=== PATIENT | male | born 1950 | race Caucasian/White ===

== ENCOUNTER → 2019-05-09 07:48 | Outpatient (CLI) | payer MEDICARE, OTHER, SELFPAY ==
[2019-05-09 09:40] LABS: Alanine Aminotransferase 38 IU/L (21-72); Albumin 4.2 g/dL (3.5-5.0); Albumin Globulin Ratio 1.7 (1.0-2.8); Alkaline Phosphatase 59 U/L (38-126); Aspartate Aminotransferase 40 IU/L (17-59); BUN Creatinine Ratio 24.4 (6-22); Bilirubin Total 0.9 mg/dL (0.2-1.3); Blood Urea Nitrogen 22 mg/dL (9-20); Calcium 9.5 mg/dL (8.4-10.2); Carbon Dioxide 28 mmol/L (22-32); Chloride 106 mmol/L (98-107); Cholesterol 150 mg/dL (140-199); Estimated Glomerular Filt Rate > 60.0 mL/min (>60); Globulin 2.5 g/dL (1.7-4.1); Glucose 102 mg/dL (80-110); HDL Cholesterol 75 mg/dL (40-60); HEMOLYSIS < 15 (0-50); LDL Cholesterol Calculated 63 mg/dL (<100); Potassium 4.2 mmol/L (3.4-5.1); Sodium 143 mmol/L (137-145); Total Protein 6.7 g/dL (6.3-8.2); Triglycerides 62 mg/dL (35-150)
[2019-05-09 10:09] LABS: Prostate Specific Antigen Scrn 1.47 ng/mL (0.1-4.0)
[2019-05-09 10:57] LABS: Hep C Virus Ab w/Reflex Quant NEGATIVE s/c (NEGATIVE)
== END ==
PROVIDERS: PCP Internal Medicine; Visit Provider Internal Medicine
DX: M15.0 Primary generalized (osteo)arthritis (principal); I10 Essential (primary) hypertension; Z12.5 Encounter for screening for malignant neoplasm of prostate
CPT/HCPCS: 36415; 80053; 80061; 86803; G0103

== ENCOUNTER → 2019-11-22 15:20 | Outpatient (CLI) | payer MEDICARE, OTHER, SELFPAY ==
[2019-11-22 16:42] LABS: BUN Creatinine Ratio 31.1 (6-22); Blood Urea Nitrogen 28 mg/dL (9-20); Calcium 9.7 mg/dL (8.4-10.2); Carbon Dioxide 27 mmol/L (22-32); Chloride 103 mmol/L (98-107); Estimated Glomerular Filt Rate > 60.0 mL/min (>60); Glucose 94 mg/dL (80-110); HEMOLYSIS < 15 (0-50); Potassium 4.4 mmol/L (3.4-5.1); Sodium 140 mmol/L (137-145)
== END ==
PROVIDERS: PCP Internal Medicine; Visit Provider Internal Medicine
DX: I10 Essential (primary) hypertension (principal)
CPT/HCPCS: 36415; 80048

== ENCOUNTER → 2019-12-28 10:09 | Outpatient (CLI) | payer MEDICARE, OTHER, SELFPAY ==
[2019-12-28 10:39] LABS: Add Manual Diff / Slide Review NO; Basophils Absolute Auto 0 /uL (0-100); Basophils Percent Auto 0.9 % (0-2); Eosinophils Absolute Auto 100 /uL (0-450); Eosinophils Percent Auto 2.1 % (2-4); Hematocrit 41.1 % (41-53); Hemoglobin 14.5 g/dL (13.5-17.5); Lymphocytes Absolute Auto 1900 /uL (1100-4500); Lymphocytes Percent Auto 33.7 % (25-40); Mean Corpuscular HGB Conc 35.3 % (30-36); Mean Corpuscular Volume 90.8 fL (80-100); Monocytes Absolute Auto 500 /uL (0-900); Monocytes Percent Auto 8.5 % (3-14); Neutrophils Absolute Auto 3100 /uL (1500-7000); Neutrophils Percent Auto 54.8 % (50-75); Platelet Count 191 X10^3/uL (150-400); Red Blood Cell Count 4.53 X10^6/uL (4.5-5.9); Red Cell Distribution Width 13.6 % (11.6-14.8); White Blood Cell Count 5.6 X10^3/uL (4.5-11.0)
[2019-12-28 11:06] LABS: Blood Urea Nitrogen 18 mg/dL (9-20); Calcium 9.7 mg/dL (8.4-10.2); Carbon Dioxide 28 mmol/L (22-32); Chloride 106 mmol/L (98-107); Estimated Glomerular Filt Rate > 60.0 mL/min (>60); Glucose 102 mg/dL (80-110); HEMOLYSIS < 15 (0-50); Potassium 4.5 mmol/L (3.4-5.1); Sodium 142 mmol/L (137-145)
== END ==
PROVIDERS: PCP Internal Medicine; Referring Provider Internal Medicine; Visit Provider Internal Medicine
DX: I10 Essential (primary) hypertension (principal); E78.00 Pure hypercholesterolemia, unspecified; M15.0 Primary generalized (osteo)arthritis
CPT/HCPCS: 36415; 80048; 85025

== ENCOUNTER → 2020-04-03 16:05 | Outpatient (CLI) | payer MEDICARE, OTHER, SELFPAY ==
--- NOTE | 2020-04-03 16:11 | DI.RAD.S_ITS ---
PROCEDURE: XR HAND RT MIN 3V INDICATIONS: RT HAND PAIN TECHNIQUE: 3 views of the hand(s) acquired. COMPARISON: None. FINDINGS: Bones: No fractures or dislocations. Carpal bones are normally aligned. No suspicious bony lesions. Soft tissues: No suspicious soft tissue calcifications. IMPRESSION: Mild arthritic changes at the interphalangeal joints, expected for age, no trauma or erosive arthritis is found. Dictated by: Miguel Aquino M.D. on 04/03/2020 at 17:01 Approved by: Miguel Aquino M.D. on 04/03/2020 at 17:02
== END ==
PROVIDERS: PCP Internal Medicine; Referring Provider Internal Medicine; Visit Provider Internal Medicine
DX: M79.641 Pain in right hand (principal)
CPT/HCPCS: 73130

== ENCOUNTER 2020-07-02 16:47 | Emergency (ER) | payer MEDICARE, OTHER, SELFPAY ==
[2020-07-02 16:53] VITALS: BP 195/88; PULSE 69; RESP 18; TEMP 36.4; O2SAT 99
--- NOTE | 2020-07-02 17:09 | DI.RAD.S_ITS ---
PROCEDURE: XR FINGER LT MIN 2V INDICATIONS: band saw laceration to tip of litte finger involving nail TECHNIQUE: AP hand, 2 views of the 5th finger(s) acquired. COMPARISON: None. FINDINGS: Bones: No fractures or dislocations. No suspicious bony lesions. Soft tissues: No suspicious soft tissue calcifications. Distal 5th digit soft tissue laceration. IMPRESSION: Soft tissue laceration. No visualized acute fracture or dislocation. However, if clinical concern and/or pain persist, short interval imaging followup in 7-10 days is recommended, as occult injury cannot be definitively excluded. Dictated by: Nicolette Bethea M.D. on 07/02/2020 at 17:27 Approved by: Nicolette Bethea M.D. on 07/02/2020 at 17:33
[2020-07-02] MEDS: TET,DIPH,PERTUSS(ACELL),VAC/PF 0.5 ML SYRINGE IM (17:29)
--- NOTE | 2020-07-02 18:02 | ED.UPPEXIN ---
HPI - Extremity Injury (Upper) <AMMY Barrow - Last Filed: 07/03/20 01:07> General Chief Complaint: Extremity Injury, Upper Stated Complaint: lt 5th finger cut Time Seen by Provider: 07/02/20 17:02 Source: patient Mode of arrival: Ambulatory Limitations: no limitations History of Present Illness HPI narrative: This is a 69-year-old male, nonsmoker, who has history of hypertension, BPH, carpal tunnel surgery presents to ED with chief complain of left little finger laceration involving nail from a band saw. Patient reports he was working on a band saw and accidentally his hand slipped and left finger got caught in saw half an hour before coming into ED. patient reports last tetanus immunization [place] 2013 [place]. Patient reports is able to move his fingers with intact sensation. Bleeding has stopped with direct pressure before coming into ED. right dominant hand. Related Data Home Medications Medication Instructions Recorded Confirmed CANDESARTAN/HYDROCHLOROTHIAZID 1 tab PO QDAY #0 02/15/13 (ATACAND HCT) Terazosin HCl (TERAZOSIN 5 mg PO QDAY #0 02/15/13 HYDROCHLORIDE) montelukast [Singulair] 10 mg PO QDAY #0 02/15/13 simvastatin 40 mg PO QDAY #0 02/15/13 Previous Rx's Medication Instructions Recorded hydrocodone-acetaminophen [Grenola] 1 tab PO Q6HP PRN #10 tab 07/15/16 Allergies Allergy/AdvReac Type Severity Reaction Status Date / Time No Known Drug Allergies Allergy Verified 07/02/20 16:57 Review of Systems <AMMY Barrow - Last Filed: 07/03/20 01:07> Review of Systems Narrative: General: Denies fever, chills, fatigue, malaise, sweats. Respiratory: Denies dyspnea, cough, wheezing, hemoptysis, sputum. Cardiovascular: Denies chest pain, palpitations, orthopnea, edema. Musculoskeletal: See HPI Skin: See HPI Neurologic: Denies weakness, headache, numbness, change in speech, confusion, seizures, incoordination. Patient History <AMMY Barrow - Last Filed: 07/03/20 01:07> Medical History BPH (benign prostatic hyperplasia) (Acute) Hypertension (Acute) Surgical History History of carpal tunnel surgery (Acute) History of hip surgery (Acute) Social History Smoking Status: Never smoker Smoking Status: Never smoker alcohol intake frequency: 0-2 drinks per day Substance Use Type: does not use Exam <AMMY Barrow - Last Filed: 07/03/20 01:07> Narrative Exam Narrative: General appearance: well developed, well nourished, in no acute distress. Head: normocephalic, atraumatic, no scalp lesions, non-tender. ENT: Hearing grossly intact. Airway patent. Neck/Thyroid: neck supple, full range of motion, no visible masses or meningeal signs. No JVD, non-tender without lymphadenopathy. Skin: 0.5 cm laceration to left little finger tip involving about 1/2 of the nail vertically. No active bleeding. Warm and dry and appropriate color for ethnicity. Heart: no clubbing, no cyanosis, no edema. Lungs: Breathing even and unlabored. No stridor. No accessory muscles used. Able to speak in full sentences. Chest: normal shape and expansion. Abdomen: non-obese, non-distended. Neurologic: alert and oriented. Cognitive exam, VALVE MECH[employer]IC and PNS grossly intact on informal exam. Psych: good eye contact, normal affect. Initial Vital Signs Initial Vital Signs: Vital Signs Temperature 97.5 F L 07/02/20 16:53 Pulse Rate 69 07/02/20 16:53 Respiratory Rate 18 07/02/20 16:53 Blood Pressure 195/88 H 07/02/20 16:53 Pulse Oximetry 99 07/02/20 16:53 Extrem Left upper extremity: hand Details: abnormal to inspection, neuromotor exam normal, neurosensory exam normal, tendon exam normal Location: of the 5th digit, tenderness Location: of the 5th digit, vascular exam Details: radial pulse present and normal capillary refill, normal ROM of fingers, no swelling and laceration (0.5cm lac on left distal finger tip/pad extending to 1/2 nail vertically); no foreign bodies <Klarissa Luke MD - Last Filed: 07/03/20 20:19> Initial Vital Signs Initial Vital Signs: Vital Signs Temperature 97.5 F L 07/02/20 16:53 Pulse Rate 69 07/02/20 16:53 Respiratory Rate 18 07/02/20 16:53 Blood Pressure 195/88 H 07/02/20 16:53 Pulse Oximetry 99 07/02/20 16:53 Procedures <Kendall CalixtoJoyceClaytonAMMY yin - Last Filed: 07/03/20 01:07> Laceration Repair Laceration 1: Site: upper extremity (finger tip involving nail) Side (If applicable): left Size (cm): 0.5 Description: linear Pre-repair: wound explored and irrigated extensively Skin layer closed with: dermabond Scores <Kendall CalixtoAMMY Vieira - Last Filed: 07/03/20 01:07> ABCD2 Citation: Lancet. 2006Nov 20;369(3027):283-23. Validation and refinement of scores to predict very early stroke risk after transient ischaemic attack. Aislinn SC1, Danii PM, Andreea MN, Petr MF, Cassandra JS, Jessica AL, Iván S. GCS [place] coma scale eye opening: Spontaneous [place] coma scale verbal response: Orientated Estephania coma scale motor response: Obey commands Estephania coma scale total score: 15 Course <Kendall CalixtoJoyceClaytonAMMY yin - Last Filed: 07/03/20 01:07> Orders Ordered: Discontinued Medications Diphtheria/Tetanus/Acell Pertussis (Adacel) 0.5 ml IM .ONCE ONE Stop: 07/02/20 17:28 Last Admin: 07/02/20 17:29 Dose: 0.5 ml Documented by: GIAN Vital Signs Vital signs: Vital Signs - 8 hr 07/02/20 18:28 Pulse Rate 61 Blood Pressure 185/91 H Pulse Oximetry 99 <Klarissa Luke MD - Last Filed: 07/03/20 20:19> Orders Ordered: Discontinued Medications Diphtheria/Tetanus/Acell Pertussis (Adacel) 0.5 ml IM .ONCE ONE Stop: 07/02/20 17:28 Last Admin: 07/02/20 17:29 Dose: 0.5 ml Documented by: ELIZABETHHT Vital Signs Vital signs: Vital Signs - 8 hr 07/02/20 18:28 Pulse Rate 61 Blood Pressure 185/91 H Pulse Oximetry 99 MDM - Extremity Injury (Upper) <AMMY Barrow - Last Filed: 07/03/20 01:07> Differential Diagnosis Differential diagnosis: Likely other (finger laceration involving nail, open fracture) Medical Records Attestation: I reviewed the patient's medical records. Imaging Data XR-Finger LT: Radiologist's Impression: [address] [address] XRay Report Signed Patient: Marky Bond EMR#: [id number] : 9Acct:[id number] Age/Sex: 69 / MDate of Service: 07/02/20 Loc: ED Accession Number: [id number] Procedure: XR finger LT min 2V Ordering Provider: Kendall Cummings PROCEDURE: XR FINGER LT MIN 2V INDICATIONS: band saw laceration to tip of litte finger involving nail TECHNIQUE: AP hand, 2 views of the 5th finger(s) acquired. COMPARISON: None. FINDINGS: Bones: No fractures or dislocations. No suspicious bony lesions. Soft tissues: No suspicious soft tissue calcifications. Distal 5th digit soft tissue laceration. IMPRESSION: Soft tissue laceration. No visualized acute fracture or dislocation. However, if clinical concern and/or pain persist, short interval imaging followup in 7-10 days is recommended, as occult injury cannot be definitively excluded. Dictated by: Nicolette Bethea M.D. on 07/02/2020 at 17:27 Approved by: Nicolette Bethea M.D. on 07/02/2020 at 17:33 [facility] Narrative Medical decision making narrative: This is 69 year male who presents to ED with chief complain of small laceration to left, non dominant hand, distal finger pad extending to 1/2 nail vertically. Intact sensation and mobility to distal phalanx of affected finger. Brisk cap refill distally. X-ray test does not show laceration involving bones but involving soft tissue. Laceration is not deep on affected finger pad and he was repaired by Dermabond including nail after injury was soaked in soapy water and rinse with copious water which patient tolerated well. Return precautions were discussed with patient including signs and symptoms for infection and advised to follow with primary care physician for wound recheck in couple of days. Discussed Dermabond care at home with patient. Patient verbalized understanding and agreement with the treatment plan. Discharge Plan Departure Patient Disposition: Home Clinical Impression: Finger laceration Qualifiers: Encounter type: initial encounter Finger: little finger Damage to nail status: with damage Foreign body presence: without foreign body Laterality: left Qualified Code(s): S61.317A - Laceration without foreign body of left little finger with damage to nail, initial encounter Discharge Date/Time: 07/02/20 18:36 Instructions: DI for Laceration Repair-Skin Glue Activity Restrictions/Additional Instructions: You have been diagnosed with [left little finger laceration involving new nail from a band saw. No fractures or dislocations per x-ray test.]. What to do: *Take your medications as directed. You can take [id number] Tylenol and or Motrin as needed for discomfort. My Dermabond DC: Please do not get your wound soaked in the water until the laceration has healed. Keep your dressing intact for next 24 hrs. After then, you could remove your dressing, wash with soap and water. Pat dry with clean papertowel and dress it. Please avoid using oil based ointment, cream, lotion and etc since this may make dermabond lose and remove prematurely. Dermabond will come off in 5-7 days on its own. Do not peel this off or pick on it. You can change dressing as needed and daily. Please monitor for signs and symptoms for infection such as increasing redness, swelling, warmth, pain, fever, purulent discharge. If this occurs, please return to ED or follow up with your primary care physician since your wound may be infected. Please follow up with your primary care provider in 2-3 days for recheck wound. Please keep your wound clean, dry and intact all times. *Return to ED if you have any new, worsening, or concerning symptoms, such as [signs of infection as above, chest pain, breathing difficulty, unable to tolerate fluids, or any acute concerns]. Prescriptions: No Action simvastatin 40 MG tablet 40 mg PO QDAY Qty: 0 RF: 0 montelukast [Singulair] 10 MG tablet 10 mg PO QDAY Qty: 0 RF: 0 Terazosin HCl (TERAZOSIN HYDROCHLORIDE) 5 mg PO QDAY Qty: 0 RF: 0 CANDESARTAN/HYDROCHLOROTHIAZID (ATACAND HCT) 1 tab PO QDAY Qty: 0 RF: 0 hydrocodone-acetaminophen [Grenola] 5 MG/325 MG tablet 1 tab PO Q6HP PRNQty: 10 RF: 0 Referrals: Darryl Karimi MD [Primary Care Provider] - <Klarissa Luke MD - Last Filed: 07/03/20 20:19> Cosign ED Attending Cosignature Attestation: I was immediately available in the department for consultation throughout this patient's visit. I agree with documentation as above. Klarissa Luke MD
[2020-07-02 18:28] VITALS: BP 185/91; PULSE 61; O2SAT 99
== END 2020-07-02 18:36 | disposition home or self-care (01) ==
PROVIDERS: Emergency Provider Nurse Practitioner Family; PCP Internal Medicine
DX: S61.317A Laceration without foreign body of left little finger with damage to nail, initial encounter (principal); W27.8XXA Contact with other nonpowered hand tool, initial encounter; Z23 Encounter for immunization
CPT/HCPCS: 73140; 90471; 99283; 90715

== ENCOUNTER → 2020-08-07 10:47 | Outpatient (CLI) | payer MEDICARE, OTHER, SELFPAY ==
[2020-08-07 13:34] LABS: Prostate Specific Antigen 1.26 ng/mL (0.10-4.00)
== END ==
PROVIDERS: PCP Internal Medicine; Referring Provider Urology; Visit Provider Urology
DX: N40.0 Benign prostatic hyperplasia without lower urinary tract symptoms (principal); Z87.898 Personal history of other specified conditions
CPT/HCPCS: 36415; 84153

== ENCOUNTER → 2020-12-21 07:55 | Outpatient (CLI) | payer MEDICARE, OTHER, SELFPAY ==
[2020-12-21 09:57] LABS: Add Manual Diff / Slide Review NO; Basophils Absolute Auto 0 /uL (0-100); Basophils Percent Auto 0.7 % (0-2); Eosinophils Absolute Auto 100 /uL (0-450); Eosinophils Percent Auto 2.1 % (2-4); Hematocrit 41.5 % (41-53); Hemoglobin 14.2 g/dL (13.5-17.5); Lymphocytes Absolute Auto 2000 /uL (1100-4500); Lymphocytes Percent Auto 34.7 % (25-40); Mean Corpuscular HGB Conc 34.3 % (30-36); Mean Corpuscular Volume 90.2 fL (80-100); Monocytes Absolute Auto 500 /uL (0-900); Monocytes Percent Auto 8.3 % (3-14); Neutrophils Absolute Auto 3100 /uL (1500-7000); Neutrophils Percent Auto 54.2 % (50-75); Platelet Count 204 X10^3/uL (150-400); Red Cell Distribution Width 12.9 % (11.6-14.8); White Blood Cell Count 5.8 X10^3/uL (4.5-11.0)
[2020-12-21 10:07] LABS: Alanine Aminotransferase 20 IU/L (<50); Albumin 4.2 g/dL (3.5-5.0); Albumin Globulin Ratio 1.6 (1.0-2.8); Alkaline Phosphatase 64 U/L (38-126); Aspartate Aminotransferase 25 IU/L (17-59); BUN Creatinine Ratio 23.9 (6-22); Bilirubin Total 0.8 mg/dL (0.2-1.3); Blood Urea Nitrogen 21 mg/dL (9-20); Calcium 9.4 mg/dL (8.4-10.2); Carbon Dioxide 27 mmol/L (22-32); Chloride 105 mmol/L (98-107); Cholesterol 134 mg/dL (140-199); Estimated Glomerular Filt Rate > 60.0 mL/min (>60); Globulin 2.6 g/dL (1.7-4.1); Glucose 104 mg/dL (80-110); HDL Cholesterol 69 mg/dL (40-60); HEMOLYSIS < 15 (0-50); LDL Cholesterol Calculated 54 mg/dL (<100); Potassium 4.1 mmol/L (3.4-5.1); Sodium 139 mmol/L (137-145); Total Protein 6.8 g/dL (6.3-8.2); Triglycerides 57 mg/dL (35-150)
== END ==
PROVIDERS: PCP Internal Medicine; Referring Provider Internal Medicine; Visit Provider Internal Medicine
DX: Z00.00 Encounter for general adult medical examination without abnormal findings (principal); I10 Essential (primary) hypertension; K21.9 Gastro-esophageal reflux disease without esophagitis; E78.00 Pure hypercholesterolemia, unspecified; Z12.5 Encounter for screening for malignant neoplasm of prostate
CPT/HCPCS: 36415; 80053; 80061; 85025; G0103

== ENCOUNTER 2021-01-13 16:59 | Emergency (ER) | payer MEDICARE, OTHER, SELFPAY ==
[2021-01-13 17:05] VITALS: BP 166/77; PULSE 68; RESP 16; TEMP 36.9; O2SAT 97
--- NOTE | 2021-01-13 17:15 | DI.RAD.S_ITS ---
PROCEDURE: XR HAND LT MIN 3V INDICATIONS: pain/swelling 3rd-5th digits after fall TECHNIQUE: Three views of the hand acquired. COMPARISON: [facility], CR, XR FINGER LT MIN 2V, 07/02/2020, 17:02. FINDINGS: Bones: Minimally displaced oblique intra-articular fractures are seen at the ulnar aspect of the 3rd and 4th distal phalangeal bases. No definite fracture is seen in the 5th finger. Degenerative changes are seen at the 2nd distal interphalangeal joint. Carpal bones are normally aligned. No suspicious bony lesions. Soft tissues: No suspicious soft tissue calcifications. A small radiodensity is seen at the ulnar aspect of the wrist that does not appear significantly changed when compared to the radiographs from 07/02/2020. IMPRESSION: Minimally displaced intra-articular fractures involving the ulnar aspect of the bases of the 3rd and 4th distal phalanges. Dictated by: Jorge Alberto Treadwell M.D. on 01/13/2021 at 16:36 Approved by: Jorge Alberto Treadwell M.D. on 01/13/2021 at 16:39
--- NOTE | 2021-01-13 17:16 | DI.RAD.S_ITS ---
PROCEDURE: XR HIP W PEL IF DONE RT 2V INDICATIONS: glf, rt hip pain, c/o hx RTHA TECHNIQUE: AP view of the pelvis and two views of the right hip views acquired COMPARISON: None. FINDINGS: Bones: Right total hip arthroplasty. No fracture identified. Sacroiliac joint and lower lumbar spine degenerative changes. Soft tissues: No suspicious soft tissue calcifications or masses. IMPRESSION: No acute finding. Dictated by: Erlin Mcfadden M.D. on 01/13/2021 at 17:34 Approved by: Erlin Mfcadden M.D. on 01/13/2021 at 17:35
--- NOTE | 2021-01-13 19:48 | ED.UPPEXIN ---
HPI - Extremity Injury (Upper) <UBALDO Purvis - Last Filed: 01/13/21 20:32> General Chief Complaint: Extremity Injury, Upper Stated Complaint: SMASHED LEFT HAND RT HIP Time Seen by Provider: 01/13/21 19:32 Source: patient and family Mode of arrival: Ambulatory Limitations: no limitations History of Present Illness HPI narrative: The patient is a 70-year-old male nonsmoker with history of hypertension who presents with his for chief complaint of a fall through some RV stairs on Wednesday. He states he slipped because he was not wearing shoes on his RV stairs, and slipped in between the whole between the stairs in the RV. He complains primarily of left finger pain. He applied a finger splint. He is also concerned about his right hip as he has a hip replacement. He did not hit his head denies any neck or back, states that he was primarily suspended between the stairs and the RV. He states he has reduced range of motion for fingers 3 through 5 of his left hand. Given age and mechanism, modified trauma considered for this patient, however did not activate as injuries are restricted to localized areas and occurred several days ago. Patient states no other imaging is needed. Related Data Home Medications Medication Instructions Recorded Confirmed CANDESARTAN/HYDROCHLOROTHIAZID 1 tab PO QDAY #0 02/15/13 (ATACAND HCT) Terazosin HCl (TERAZOSIN 5 mg PO QDAY #0 02/15/13 HYDROCHLORIDE) montelukast [Singulair] 10 mg PO QDAY #0 02/15/13 simvastatin 40 mg PO QDAY #0 02/15/13 Previous Rx's Medication Instructions Recorded hydrocodone-acetaminophen [[place]] 1 tab PO Q6HP PRN #10 tab 07/15/16 cephalexin 500 mg PO TID 7 Days #21 cap 01/13/21 Allergies Allergy/AdvReac Type Severity Reaction Status Date / Time No Known Drug Allergies Allergy Verified 07/02/20 16:57 Review of Systems <UBALDO Purvis - Last Filed: 01/13/21 20:32> Review of Systems Narrative: GENERAL: Denies chills, fatigue, malaise, fever, sweats. HEENT: Denies sinus pain, ear pain, sore throat, difficulty swallowing, dizziness. RESPIRATORY: Denies dyspnea, cough, wheezing, hemoptysis, sputum. CARDIOVASCULAR: Denies chest pain, palpitations, orthopnea, edema, GASTROINTESTINAL: Denies nausea, vomiting, abdominal pain, diarrhea, constipation, melena. : Denies dysuria, frequency, incontinence, hematuria, urinary retention. MUSCULOSKELETAL: See HPI SKIN: See HPI NEUROLOGIC: Denies weakness, headache, numbness, change in speech, confusion, seizures, incoordination. PSYCHIATRIC: No concerning psychosocial issues. 12 point review of systems is negative except for those stated above Patient History <UBALDO Purvis - Last Filed: 01/13/21 20:32> Medical History (Updated 01/13/21 @ 19:59 by UBALDO Purvis) BPH (benign prostatic hyperplasia) Hypertension Surgical History History of carpal tunnel surgery History of hip surgery Social History Smoking Status: Never smoker Smoking Status: Never smoker alcohol intake frequency: 0-2 drinks per day Substance Use Type: does not use Exam <UBALDO Purvis - Last Filed: 01/13/21 20:32> Narrative Exam Narrative: GENERAL: This is a well-nourished, well-developed patient, in no acute distress HEAD: Atraumatic. Normocephalic. No temporal or scalp tenderness. EYES: Pupils equal round and reactive. Extraocular motions intact. No scleral icterus. No injection or drainage. ENT: Nose without bleeding, purulent drainage or septal hematoma. Wearing a mask Airway patent. NECK: Trachea midline. No JVD or lymphadenopathy. Supple, nontender, no meningeal signs. CARDIOVASCULAR: Regular rate and rhythm without murmurs, gallops, or rubs. RESPIRATORY: Clear to auscultation. Breath sounds equal bilaterally. No wheezes, rales, or rhonchi. GASTROINTESTINAL: Abdomen soft, non-tender, nondistended. No hepato-splenomegaly, or palpable masses. No guarding. EXTREMITIES: Slight ecchymosis noted left hip. Had ecchymosis noted generalized left 3rd 4th 5th digits. 1 cm macerated, healing abrasion noted at tip of 3rd digit. Abrasion noted at tip of left 5th digit. Positive left radial pulse. Able to flexfill and extend all fingers. Capillary refill less than 2 seconds all fingers left hand. BACK: Nontender without deformity or crepitance. No flank tenderness. No pain to palpation of CT or L-spine. No palpable deformities. NEURO: AOx3. SKIN: See extremity exam Initial Vital Signs Initial Vital Signs: Vital Signs Temperature 98.4 F 01/13/21 17:05 Pulse Rate 68 01/13/21 17:05 Respiratory Rate 16 01/13/21 17:05 Blood Pressure 166/77 H 01/13/21 17:05 Pulse Oximetry 97 01/13/21 17:05 <Leonardo Soares DO - Last Filed: 01/14/21 04:46> Initial Vital Signs Initial Vital Signs: Vital Signs Temperature 98.4 F 01/13/21 17:05 Pulse Rate 68 01/13/21 17:05 Respiratory Rate 16 01/13/21 17:05 Blood Pressure 166/77 H 01/13/21 17:05 Pulse Oximetry 97 01/13/21 17:05 Procedures <UBALDO Purvis - Last Filed: 01/13/21 20:32> Orthopedic Splinting/Casting Injury #1: Side: left Upper Extremity Injury Location: finger (3 and 4) Post splinting neuro exam: intact Post splinting vascular exam: intact Placed by: Nursing Scores <UBALDO Purvis - Last Filed: 01/13/21 20:32> GCS [place] coma scale eye opening: Spontaneous Estephania coma scale verbal response: Orientated Estephania coma scale motor response: Obey commands Estephania coma scale total score: 15 Course <UBALOD Purvis - Last Filed: 01/13/21 20:32> Orders Ordered: Discontinued Medications Cephalexin HCl (Cephalexin 250 Mg Capsule) 500 mg PO NOW ONE Stop: 01/13/21 19:46 Last Admin: 01/13/21 19:56 Dose: 500 mg Documented by: BRI Diphtheria/Tetanus/Acell Pertussis (Tet,Diph,Pertuss(Acell),Vac/Pf 0.5 Ml Syringe) 0.5 ml IM .ONCE ONE Stop: 01/13/21 19:46 Last Admin: 01/13/21 19:56 Dose: 0.5 ml Documented by: BRI Vital Signs Vital signs: Vital Signs - 8 hr 01/13/21 17:05 Temperature 98.4 F Pulse Rate 68 Respiratory Rate 16 Blood Pressure 166/77 H Pulse Oximetry 97 <Leonardo Soares DO - Last Filed: 01/14/21 04:46> Orders Ordered: Discontinued Medications Cephalexin HCl (Cephalexin 250 Mg Capsule) 500 mg PO NOW ONE Stop: 01/13/21 19:46 Last Admin: 01/13/21 19:56 Dose: 500 mg Documented by: BRI Diphtheria/Tetanus/Acell Pertussis (Tet,Diph,Pertuss(Acell),Vac/Pf 0.5 Ml Syringe) 0.5 ml IM .ONCE ONE Stop: 01/13/21 19:46 Last Admin: 01/13/21 19:56 Dose: 0.5 ml Documented by: BRI Vital Signs Vital signs: Vital Signs - 8 hr 01/13/21 17:05 Temperature 98.4 F Pulse Rate 68 Respiratory Rate 16 Blood Pressure 166/77 H Pulse Oximetry 97 MDM - Extremity Injury (Upper) <UBALDO Purvis - Last Filed: 01/13/21 20:32> Imaging Data Hip x-ray: Radiologist's Impression: [address] [place] [id number] ReportSigned Patient: Marky Bond EMR#: [id number]: [id number]:[id number]/Sex: 70 / MDate of Service: 01/13/21Loc: EDAccession Number: [id number] Procedure: XR hip w pel if done RT 2V Ordering Provider: Suly Guadalupe D.O. PROCEDURE: XR HIP W PEL IF DONE RT 2V INDICATIONS: glf, rt hip pain, c/o hx RTHA TECHNIQUE: AP view of the pelvis and two views of the right hip views acquired COMPARISON: None. FINDINGS: Bones: Right total hip arthroplasty. No fracture identified. Sacroiliac joint and lower lumbar spine degenerative changes. Soft tissues: No suspicious soft tissue calcifications or masses. IMPRESSION: No acute finding. Dictated by: Erlin Mcfadden M.D. on 01/13/2021 at 17:34 Approved by: Erlin Mcfadden M.D. on 01/13/2021 at 17:35 Extremity x-ray #2: Radiologist's Impression: [address] [place] [address] [id number] ReportSigned Patient: Marky Bond EMR#: [id number]: [id number]:[id number]/Sex: 70 / MDate of Service: 01/13/21Loc: EDAccession Number: [id number] Procedure: XR hand LT min 3V Ordering Provider: Suly Guadalupe D.O. PROCEDURE: XR HAND LT MIN 3V INDICATIONS: pain/swelling 3rd-5th digits after fall TECHNIQUE: Three views of the hand acquired. COMPARISON: [facility], CR, XR FINGER LT MIN 2V, 07/02/2020, 17:02. FINDINGS: Bones: Minimally displaced oblique intra-articular fractures are seen at the ulnar aspect of the 3rd and 4th distal phalangeal bases. No definite fracture is seen in the 5th finger. Degenerative changes are seen at the 2nd distal interphalangeal joint. Carpal bones are normally aligned. No suspicious bony lesions. Soft tissues: No suspicious soft tissue calcifications. A small radiodensity is seen at the ulnar aspect of the wrist that does not appear significantly changed when compared to the radiographs from 07/02/2020. IMPRESSION: Minimally displaced intra-articular fractures involving the ulnar aspect of the bases of the 3rd and 4th distal phalanges. Dictated by: Jorge Alberto Treadwell M.D. on 01/13/2021 at 16:36 Approved by: Jorge Alberto Treadwell M.D. on 01/13/2021 at 16:39 [facility] Narrative Medical decision making narrative: The patient is a 70-year-old male who presents with a chief complaint of a fall several days ago with resulting hip pain as well as finger pain. His hip x-ray is negative, is able to weightbear with out distress. X-rays of hand show to fractures. Patient had wounds cleansed, he does have some overlying laceration, so we elected to cover with Keflex. Tetanus was updated. His wounds were cleansed and he was placed in splints. He does have reassuring range of motion and is neurovascularly intact throughout his stay in the emergency department. Patient declines pain medications in the emergency. Discussed keeping his lacerations clean and dry. I discussed at length follow up with primary care provider coming back to the ER for acute concerns. Patient has no questions or concerns upon discharge states understanding return precautions as well as follow-up care. Discharge Plan Departure Patient Disposition: Home Clinical Impression: Contusion of hip Qualifiers: Encounter type: initial encounter Laterality: right Qualified Code(s): S70.01XA - Contusion of right hip, initial encounter Finger fracture, left Qualifiers: Encounter type: initial encounter Finger: middle finger Fracture type: open Phalanx: distal Fracture alignment: displaced Qualified Code(s): S62.633B - Displaced fracture of distal phalanx of left middle finger, initial encounter for open fracture Fracture, finger, distal phalanx, open Qualifiers: Encounter type: initial encounter Finger: ring finger Fracture alignment: nondisplaced Laterality: left Qualified Code(s): S62.665B - Nondisplaced fracture of distal phalanx of left ring finger, initial encounter for open fracture Instructions: DI for Finger Fracture, DI for Contusion, How To Perform RICE (Rest, Ice, Compress, Elevate), DI for Open Fracture Activity Restrictions/Additional Instructions: Thank you for trusting us with your care today As discussed, your hip x-ray had no acute findings. However your hand x-ray shows that you a fractured 2 different fingers. Given your overlying lacerations, we elected to give you antibiotics to help prevent any infection from going into the bone. I sent this prescription to [facility]. We have given you a dose here in the emergency department. Please take this with probiotic or yogurt. We have also updated your tetanus vaccination. Please follow-up with primary care provider in the next few days. You can also follow-up with [facility]. Please come back to the emergency department for any acute concerns. Please monitor your lacerations for extending redness or other signs of infection. Please follow-up with this occurs. Please keep your wounds clean and dry. Do not submerge limited dirty water such as pool water, [place] water etcetera Please use rest ice compression elevation. Prescriptions: New cephalexin 500 mg capsule 500 mg PO TID 7 Days Qty: 21 RF: 0 No Action simvastatin 40 MG tablet 40 mg PO QDAY Qty: 0 RF: 0 montelukast [Singulair] 10 MG tablet 10 mg PO QDAY Qty: 0 RF: 0 Terazosin HCl (TERAZOSIN HYDROCHLORIDE) 5 mg PO QDAY Qty: 0 RF: 0 CANDESARTAN/HYDROCHLOROTHIAZID (ATACAND HCT) 1 tab PO QDAY Qty: 0 RF: 0 hydrocodone-acetaminophen [[place]] 5 MG/325 MG tablet 1 tab PO Q6HP PRNQty: 10 RF: 0 Referrals: Darryl Karimi MD [Primary Care Provider] - <Leonardo Soares DO - Last Filed: 01/14/21 04:46> Cosign ED Attending Cosignature Attestation: I was immediately available in the department for consultation. This documentation has been reviewed and I agree with assessment and plan. Supervised by Leonardo Soares DO
[2021-01-13] MEDS: cephALEXin 250 MG CAPSULE 500 MG PO (19:56)
[2021-01-13] MEDS: TET,DIPH,PERTUSS(ACELL),VAC/PF 0.5 ML SYRINGE IM (19:56)
[2021-01-13 20:37] VITALS: BP 168/83; PULSE 61; RESP 18; O2SAT 99
== END 2021-01-13 20:40 | disposition home or self-care (01) ==
PROVIDERS: Emergency Provider Nurse Practitioner Family; PCP Internal Medicine
DX: M25.551 Pain in right hip (principal); S62.633B Displaced fracture of distal phalanx of left middle finger, initial encounter for open fracture; S62.665B Nondisplaced fracture of distal phalanx of left ring finger, initial encounter for open fracture; S70.01XA Contusion of right hip, initial encounter; W01.0XXA Fall on same level from slipping, tripping and stumbling without subsequent striking against object, initial encounter; Z23 Encounter for immunization
CPT/HCPCS: 29130; 73130; 73502; 90471; 99283; 99284; 90715

== ENCOUNTER → 2021-10-02 07:45 | Outpatient (CLI) | payer MEDICARE, OTHER, SELFPAY ==
[2021-10-02 08:44] LABS: BUN Creatinine Ratio 15.5 (6-22); Blood Urea Nitrogen 17 mg/dL (9-20); Calcium 9.6 mg/dL (8.4-10.2); Carbon Dioxide 33 mmol/L (22-32); Chloride 102 mmol/L (98-107); Estimated Glomerular Filt Rate > 60.0 mL/min (>60); Glucose 100 mg/dL (80-110); HEMOLYSIS < 15 (0-50); Potassium 4.4 mmol/L (3.4-5.1); Sodium 141 mmol/L (137-145)
== END ==
PROVIDERS: PCP Internal Medicine; Referring Provider Internal Medicine; Visit Provider Internal Medicine
DX: I10 Essential (primary) hypertension (principal)
CPT/HCPCS: 36415; 80048

== ENCOUNTER 2022-01-21 16:46 | Emergency (ER) | payer MEDICARE, OTHER, SELFPAY ==
[2022-01-21 16:54] VITALS: BP 154/84; PULSE 75; RESP 16; TEMP 36.4; O2SAT 97
--- NOTE | 2022-01-21 16:56 | DI.RAD.S_ITS ---
PROCEDURE: XR TOE RT MIN 2V INDICATIONS: crush injury TECHNIQUE: 2 views of the 4th toe(s) acquired. COMPARISON: [facility], , TOE MINIMUM 2 VIEWS RIGHT, 07/15/2016, 15:48. FINDINGS: Bones: No fractures or dislocations. No suspicious bony lesions. Soft tissues: No suspicious soft tissue densities. IMPRESSION: No displaced fractures are seen on these plain films. Dictated by: Solitario Parham M.D. on 01/21/2022 at 16:19 Approved by: Solitario Parham M.D. on 01/21/2022 at 16:20
--- NOTE | 2022-01-21 18:04 | ED.LOWEXIN ---
HPI - Extremity Injury (Lower) General Chief Complaint: Extremity Injury, Lower Stated Complaint: DROPPED STEEL ON RIGHT 4TH TOE Time Seen by Provider: 01/21/22 18:01 Source: patient Mode of arrival: Ambulatory History of Present Illness HPI Narrative: 71-year-old gentleman with a history of seasonal allergies, hyperlipidemia not anticoagulated was cleaning his shop today and dropped a steel bar used for his lathe directly on his right 4th toe. He had a sturdy but not steel toe work shoes on at the time. He comes in for further evaluation. He is able to walk. There is some ecchymosis to the right 4th toe no injury to other toes or the midfoot. Related Data Home Medications Medication Instructions Recorded Confirmed CANDESARTAN/HYDROCHLOROTHIAZID 1 tab PO QDAY #0 02/15/13 (ATACAND HCT) Terazosin HCl (TERAZOSIN 5 mg PO QDAY #0 02/15/13 HYDROCHLORIDE) montelukast 10 mg tablet 10 mg PO QDAY #0 02/15/13 (Singulair) simvastatin 40 mg tablet 40 mg PO QDAY #0 02/15/13 Previous Rx's Medication Instructions Recorded hydrocodone 5 mg-acetaminophen 325 1 tab PO Q6HP PRN #10 tab 07/15/16 mg tablet ([place]) Allergies Allergy/AdvReac Type Severity Reaction Status Date / Time No Known Drug Allergies Allergy Verified 07/02/20 16:57 Review of Systems Review of Systems Narrative: No fever, cough, palpitations, abdominal pain, chest pain, vomiting or diarrhea. Patient History Medical History (Updated 01/21/22 @ 18:18 by Klarissa Luke MD) BPH (benign prostatic hyperplasia) Hypertension Surgical History History of carpal tunnel surgery History of hip surgery Social History Smoking Status: Never smoker Smoking Status: Never smoker alcohol intake frequency: 0-2 drinks per day Substance Use Type: does not use Exam Initial Vital Signs Initial Vital Signs: Vital Signs Temperature 97.5 F L 01/21/22 16:54 Pulse Rate 75 01/21/22 16:54 Respiratory Rate 16 01/21/22 16:54 Blood Pressure 154/84 H 01/21/22 16:54 Pulse Oximetry 97 03/30/22 16:54 General: Alert appropriate in no acute distress Respiratory: Able to speak in full sentences, no obvious respiratory distress Skin: No obvious rashes, warm and dry Neurologic: Grossly intact no obvious asymmetries or abnormalities Psych: appropriate insight and affect, cooperative Extremity: Right foot is examined. No injury to the ankle the foot. Right 4th toe with some minor ecchymosis without significant nailbed injury or subungual hematoma. Neurovascularly intact. No other injury to toes. Course Orders Ordered: ED Orders 01/21/22 16:56 XR toe RT min 2V Stat Vital Signs Vital signs: Vital Signs - 8 hr 01/21/22 16:54 Temperature 97.5 F L Pulse Rate 75 Respiratory Rate 16 Blood Pressure 154/84 H Pulse Oximetry 97 [facility] - Extremity Injury (Lower) Imaging Data XR foot: Radiologist's Impression: FINDINGS:? ? Bones:? No fractures or dislocations.? No suspicious bony lesions.? ? Soft tissues:? No suspicious soft tissue densities.? ? ? IMPRESSION:? No displaced fractures are seen on these plain films. ? ? Dictated by: Solitario Parham M.D. on 01/21/2022 at 16:19 ? ? [facility] Narrative Medical decision making narrative: 71-year-old gentleman with blunt injury to the right 4th toe with contusion but no fracture. Findings are reviewed with him. Recommended charles taping and firm soled shoes for comfort as well as Tylenol elevation and ice as needed. Questions are answered he is safe for home discharge Discharge Plan Departure Patient Disposition: Home Clinical Impression: Contusion of toe of right foot Qualifiers: Encounter type: initial encounter Toe: lesser toe Damage to nail status: without damage Qualified Code(s): S90.121A - Contusion of right lesser toe(s) without damage to nail, initial encounter Instructions: DI for Toe Fracture Activity Restrictions/Additional Instructions: Thank you for coming in today Your x-ray does not show a fractured toe. Clearly it is of significantly bruised and the treatment is going to be exactly the same as you would do if it were actually broken. Elevation, Tylenol ice if that seems to help. Charles taping the toe to the 3rd toe can help just give it support and using shoes with a hard sole will help prevent flexion that can cause pain. If you find having worsening symptoms or new findings please feel free to return to ER Prescriptions: No Action simvastatin 40 MG tablet 40 mg PO QDAY Qty: 0 0RF montelukast [Singulair] 10 MG tablet 10 mg PO QDAY Qty: 0 0RF Terazosin HCl (TERAZOSIN HYDROCHLORIDE) 5 mg PO QDAY Qty: 0 0RF CANDESARTAN/HYDROCHLOROTHIAZID (ATACAND HCT) 1 tab PO QDAY Qty: 0 0RF hydrocodone-acetaminophen [[place]] 5 MG/325 MG tablet 1 tab PO Q6HP PRNQty: 10 0RF Referrals: Miguel Angel Jama MD [Primary Care Provider] -
[2022-01-21 18:37] VITALS: BP 149/72; PULSE 56; RESP 16; O2SAT 98
== END 2022-01-21 18:38 | disposition home or self-care (01) ==
PROVIDERS: Emergency Provider Emergency Medicine; PCP Internal Medicine
DX: S90.121A Contusion of right lesser toe(s) without damage to nail, initial encounter (principal); W20.8XXA Other cause of strike by thrown, projected or falling object, initial encounter; Y93.E9 Activity, other interior property and clothing maintenance; Y92.89 Other specified places as the place of occurrence of the external cause
CPT/HCPCS: 73660; 99283

== ENCOUNTER → 2022-10-28 14:45 | Outpatient (CLI) | payer MEDICARE, OTHER, SELFPAY ==
[2022-10-28 18:09] LABS: Prostate Specific Antigen 3.18 ng/mL (0.10-4.00)
== END ==
PROVIDERS: PCP Internal Medicine; Referring Provider Urology; Visit Provider Urology
DX: Z12.5 Encounter for screening for malignant neoplasm of prostate (principal)
CPT/HCPCS: 36415; 84153; G0103

== ENCOUNTER 2022-10-28 18:52 | Emergency (ER) | payer MEDICARE, OTHER, SELFPAY ==
[2022-10-28 19:31] VITALS: BP 166/76; PULSE 76; RESP 20; TEMP 36.5; O2SAT 99; BMI 26.6
--- NOTE | 2022-10-28 22:56 | ED.GENADULT ---
HPI - General Adult General Chief complaint: Urogenital-Male Stated complaint: Blood from catheter Time Seen by Provider: 10/28/22 20:38 Source: patient and family Mode of arrival: Ambulatory Limitations: no limitations History of Present Illness HPI narrative: Patient is a 72-year-old male who has a urinary catheter in place secondary to urinary retention most likely related to BPH. Has been in for approximately 10 days. He is an appointment next week with Urology however he noticed today that he was having quite a bit of blood in the catheter bag. He is also having pain is lower back. The catheter is still draining. He denies any fevers. No abdominal pain. He is on Flomax. Came to the emergency department because of the blood in his catheter. Related Data Home Medications Medication Instructions Recorded Confirmed CANDESARTAN/HYDROCHLOROTHIAZID 1 tab PO QDAY ##0 02/15/13 (ATACAND HCT) Terazosin HCl (TERAZOSIN 5 mg PO QDAY ##0 02/15/13 HYDROCHLORIDE) montelukast 10 mg tablet 10 mg PO QDAY ##0 02/15/13 (Singulair) simvastatin 40 mg tablet 40 mg PO QDAY ##0 02/15/13 Previous Rx's Medication Instructions Recorded hydrocodone 5 mg-acetaminophen 325 1 tab PO Q6HP PRN #10 tabs 07/15/ mg tablet ([place]) Allergies Allergy/AdvReac Type Severity Reaction Status Date / Time No Known Drug Allergies Allergy Verified 07/02/20 16:57 Review of Systems Constitutional Constitutional: Reports system reviewed and no additional complaints, except as documented Gastrointestinal Gastrointestinal: Reports system reviewed and no additional complaints, except as documented Genitourinary Genitourinary: Reports system reviewed and no additional complaints, except as documented Hematologic/Lymphatic On Anticoagulants: No Patient History Medical History BPH (benign prostatic hyperplasia) Hypertension Surgical History History of carpal tunnel surgery History of hip surgery Social History Smoking Status: Never smoker Smoking Status: Never smoker alcohol intake frequency: 0-2 drinks per day Substance Use Type: does not use Exam Initial Vital Signs Initial Vital Signs: Vital Signs Temperature 97.7 F 10/28/22 19:31 Pulse Rate 76 10/28/22 19:31 Respiratory Rate 20 10/28/22 19:31 Blood Pressure 166/76 H 10/28/22 19:31 Pulse Oximetry 99 10/28/22 19:31 Oxygen Delivery Method 10/28/22 19:31 Resp Effort & Inspection: normal respiratory effort Cardio Rate: regular rate Other: Green catheter in place Skin General: no rashes or lesions noted Course Orders Ordered: ED Orders 10/28/22 20:39 UA Complete [Urinalysis and Microscopic] Stat Vital Signs Vital signs: Vital Signs - 8 hr 10/28/22 19:31 10/28/22 23:16 Temperature 97.7 F Pulse Rate 76 82 Respiratory Rate 20 17 Blood Pressure 166/76 H 162/78 H Pulse Oximetry 99 97 Oxygen Delivery Method Room Air Room Air Medical Decision Making MDM Narrative Medical decision making narrative: Patient is draining what appears to be clear urine after changing the Green catheter bag. There is no indication for lab testing today. No indication for UA or kidney function has a would not change disposition. I did offer to take his catheter out today and we discussed the risks and benefits of this however he would like to wait until his appointment next week with the urologist. He was given return precautions. With he and his expressed understanding and agreement. Discharge Plan Departure Patient Disposition: Home Clinical Impression: Hematuria Instructions: How to Care for Your Green Catheter -- Male Activity Restrictions/Additional Instructions: Recommend that you stay hydrated and continue to take all of your medications as directed. Keep your scheduled medical appointment with the urologist that you have next week. Return to the emergency department for any new or worsening symptoms. Prescriptions: No Action simvastatin 40 MG tablet 40 mg PO QDAY Qty: 0 montelukast [Singulair] 10 MG tablet 10 mg PO QDAY Qty: 0 Terazosin HCl (TERAZOSIN HYDROCHLORIDE) 5 mg PO QDAY Qty: 0 CANDESARTAN/HYDROCHLOROTHIAZID (ATACAND HCT) 1 tab PO QDAY Qty: 0 hydrocodone-acetaminophen [[place]] 5 MG/325 MG tablet 1 tab PO Q6HP PRNQty: 10 0RF Referrals: Miguel Angel Jama MD [Primary Care Provider] - Stand Alone Forms: Patient Portal/API
[2022-10-28 23:16] VITALS: BP 162/78; PULSE 82; RESP 17; O2SAT 97
== END 2022-10-28 23:17 | disposition home or self-care (01) ==
PROVIDERS: Emergency Provider Emergency Medicine; PCP Internal Medicine
DX: R31.9 Hematuria, unspecified (principal); Z12.5 Encounter for screening for malignant neoplasm of prostate
CPT/HCPCS: 36415; 99281; G0103

== ENCOUNTER 2024-06-22 11:11 | Emergency (ER) | payer MEDICARE, OTHER, SELFPAY ==
[2024-06-22] VITALS (13 sets, daily range): BP systolic 126–164; BP diastolic 60–70; PULSE 51–68; RESP 12–17; TEMP 36.1; O2SAT 97–100; BMI 25.2
--- NOTE | 2024-06-22 | DI.CT.S_ITS ---
PROCEDURE: CT FACIAL BONES WO CON INDICATIONS: FALL. Trauma. Pain. Injury. TECHNIQUE: Noncontrast 2.5 mm thick axial images acquired from the mandible through the frontal sinuses, with coronal and sagittal reformatting. For radiation dose reduction, the following was used: automated exposure control, adjustment of mA and/or kV according to patient size. COMPARISON: None. FINDINGS: Image quality: Excellent. Bones and teeth: Orbital wall are intact. Sinus wall show no fracture or deformity. Nasal bones and septum are intact. Visualized portions of the mandible demonstrate no fractures or subluxation. Zygomatic arches are intact. Pterygoid plates are intact. Visualized portions of the skull base and auditory canals are intact. Sinuses: Paranasal sinuses are aerated, without fluid levels, mucosal thickening, or mucoceles. Mastoid air cells are aerated. Soft tissues: No edema, masses, or fluid collections. No enlarged lymph nodes. No soft tissue lacerations or debris. Vascular: Visualized vascular structures appear normal in the absence of contrast. Bony vascular foramina and canals are intact. IMPRESSION: No fracture. Dictated by: Isabel Melendez MD, PhD on 06/22/2024 at 12:34 Approved by: Isabel Melendez MD, PhD on 06/22/2024 at 12:36
--- NOTE | 2024-06-22 11:25 | DI.RAD.S_ITS ---
PROCEDURE: XR CHEST 1V INDICATIONS: chest pain TECHNIQUE: One view of the chest was acquired. COMPARISON: None. FINDINGS: Surgical changes and devices: None. Lungs and pleura: Lungs are clear. No pleural effusions or pneumothorax. Mediastinum: Mediastinal contours appear normal. Heart size is normal. Bones and chest wall: No suspicious bony lesions. Overlying soft tissues appear unremarkable. IMPRESSION: No acute cardiopulmonary abnormality is seen. Dictated by: Isabel Melendez MD, PhD on 06/22/2024 at 12:28 Approved by: Isabel Melendez MD, PhD on 06/22/2024 at 12:28
--- NOTE | 2024-06-22 11:30 | EKG_ITS ---
[address] [address] Test Date: 2024-06-22 Pat Name: Marky Bond Department: [facility] Room: Gender: Male Communications Program Manager: CHANO : 1950 Requested By: Order Number: [id number] Reading MD: Xavi Rodriguez Measurements Intervals [place] Rate: 57 P: 29 AL: 198 QRS: 38 QRSD: 84 T: 17 QT: 424 QTc: 412 Interpretive Statements Sinus bradycardia Electronically Signed On 06-23-2024 20:13:54 PDT by Xavi Rodriguez
--- NOTE | 2024-06-22 11:33 | PC.NURSE ---
Patient comes into the ER with complaints of fainting 3 times. He hit his chin and has a 1cm laceration on chin. He complains of pain in his right thumb on the distal tip. He hit his nose as well. no deformity noted on his finger or nose. He denies c-spine tenderness but has pain in the side of his neck with movement. He has a headache and is nauseated. He has a negative FAST neuro exam and his BP slightly elevated at 138/63. He is not on blood thinners and is AxOx4. Provider updated.
[2024-06-22 11:39] LABS: Add Manual Diff / Slide Review NO; Basophils Absolute Auto 0 /uL (0-100); Basophils Percent Auto 0.7 % (0-2); Eosinophils Absolute Auto 0 /uL (0-450); Eosinophils Percent Auto 0.7 % (2-4); Hematocrit 36.7 % (41-53); Hemoglobin 12.8 g/dL (13.5-17.5); Lymphocytes Absolute Auto 1300 /uL (1100-4500); Lymphocytes Percent Auto 21.4 % (25-40); Mean Corpuscular Hemoglobin 31.1 PG (26-34); Mean Corpuscular Volume 88.8 fL (80-100); Monocytes Absolute Auto 500 /uL (0-900); Monocytes Percent Auto 7.5 % (3-14); Neutrophils Absolute Auto 4300 /uL (1500-7000); Neutrophils Percent Auto 69.7 % (50-75); Platelet Count 168 X10^3/uL (150-400); Red Blood Cell Count 4.13 X10^6/uL (4.5-5.9); Red Cell Distribution Width 13.4 % (11.6-14.8); White Blood Cell Count 6.2 X10^3/uL (4.5-11.0)
--- NOTE | 2024-06-22 11:42 | DI.CT.S_ITS ---
PROCEDURE: CT HEAD/BRAIN WO CON INDICATIONS: syncope TECHNIQUE: Noncontrast 4.5 mm thick angled axial sections acquired from the foramen magnum to the vertex, with coronal and sagittal reformats. For radiation dose reduction, the following was used: automated exposure control, adjustment of mA and/or kV according to patient size. COMPARISON: None. FINDINGS: Image quality: Diagnostic. CSF spaces: Basal cisterns are patent. No extra-axial fluid collections. The ventricles are symmetric in size and shape. Brain: No intracranial bleeds or masses. There is cerebral volume loss for age, with resultant ventricular and sulcal prominence. There are periventricular and deep white matter chronic small vessel ischemic changes. There is intracranial internal carotid artery atherosclerosis. Skull and face: Calvarium and visualized facial bones appear intact, without suspicious lesions. Sinuses: Visualized sinuses and mastoids are clear. IMPRESSION: No acute intracranial pathology. Dictated by: Isabel Melendez MD, PhD on 06/22/2024 at 12:29 Approved by: Isabel Melendez MD, PhD on 06/22/2024 at 12:30
[2024-06-22 11:45] LABS: INR 1.1 (0.9-1.3); Prothrombin Time 12.6 SECONDS (9.4-12.5)
[2024-06-22 11:48] LABS: PTT Partial Thromboplastin Tim 32 SECONDS (25.1-36.5)
[2024-06-22 11:49] LABS: Alanine Aminotransferase 21 IU/L (<50); Albumin 4.4 g/dL (3.5-5.0); Albumin Globulin Ratio 1.8 (1.0-2.8); Alkaline Phosphatase 55 U/L (38-126); Aspartate Aminotransferase 32 IU/L (17-59); BUN Creatinine Ratio 22.3 (6-22); Bilirubin Total 0.9 mg/dL (0.2-1.3); Blood Urea Nitrogen 27 mg/dL (9-20); Calcium 9.3 mg/dL (8.4-10.2); Carbon Dioxide 19 mmol/L (22-32); Chloride 107 mmol/L (98-107); Creatine Kinase 418 U/L (55-170); Estimated Glomerular Filt Rate > 60 mL/min (>60); Globulin 2.5 g/dL (1.7-4.1); Glucose 115 mg/dL (80-110); HEMOLYSIS < 15 (0-50); Lipase 89 U/L (23-300); Magnesium 2.1 mg/dL (1.6-2.3); Potassium 3.5 mmol/L (3.4-5.1); Sodium 138 mmol/L (137-145); Total Protein 6.9 g/dL (6.3-8.2)
--- NOTE | 2024-06-22 11:59 | ED.SYNCOPE ---
HPI - Syncope General Chief Complaint: Syncope Stated Complaint: fainted outside ,Cut under chin Time Seen by Provider: 06/22/24 11:36 Source: patient Mode of arrival: Wheelchair Limitations: no limitations History of Present Illness HPI narrative: Patient is a 73-year-old male history of hypertension BPH hyperlipidemia presenting today with syncopal episode. He reports that he is on multiple blood pressure medications 1 of whom does make him feel dizzy in the morning. He has been checking blood pressure little bit more lately but has never actually been low. He says it is normal as about in the 140s morning was out in the [place] had a got a piece of wood he went back to the working area he felt a little wobbly passed out in his chin. He has a laceration under his chin. He has not on anti coagulation medication. Briefly lost consciousness. He got up by himself made it over to the stairs where he passed out again. He denies any sort of chest pain or palpitations. No numbness tingling or weakness. He was in his normal state of health yesterday. He reports that there is no new medication changes. But he does see his doctor regularly. He is reporting mild headache and some nausea. No other injuries no neck pain no extremity pain or hip pain Related Data Home Medications Medication Instructions Recorded Confirmed CANDESARTAN/HYDROCHLOROTHIAZID 1 tab PO QDAY ##0 02/15/13 (ATACAND HCT) Terazosin HCl (TERAZOSIN 5 mg PO QDAY ##0 02/15/13 HYDROCHLORIDE) montelukast 10 mg tablet 10 mg PO QDAY ##0 02/15/13 (Singulair) simvastatin 40 mg tablet 40 mg PO QDAY ##0 02/15/13 Previous Rx's Medication Instructions Recorded hydrocodone 5 mg-acetaminophen 325 1 tab PO Q6HP PRN #10 tabs 07/15/16 mg tablet ([place]) Allergies Allergy/AdvReac Type Severity Reaction Status Date / Time No Known Drug Allergies Allergy Verified 06/22/24 11:22 Patient History Medical History (Updated 06/22/24 @ 17:29 by Suly Guadalupe DO) Hypertension BPH (benign prostatic hyperplasia) Surgical History History of carpal tunnel surgery History of hip surgery Social History Smoking Status: Never smoker Smoking Status: Never smoker alcohol intake frequency: 0-2 drinks per day Substance Use Type: does not use Exam Initial Vital Signs Initial Vital Signs: Vital Signs Temperature 96.9 F L 06/22/24 11:12 Pulse Rate 58 L 06/22/24 11:12 Respiratory Rate 14 06/22/24 11:12 Blood Pressure 140/63 06/22/24 11:12 Pulse Oximetry 99 06/22/24 11:12 Oxygen Delivery Method Room Air 06/22/24 11:12 GENERAL: Alert 73-year-old male and in [no acute] distress. HEENT: Head atraumatic,EOMI, pupils reactive, face symmetric, [moist] mucous membranes CARDIOVASCULAR: Regular rate and rhythm without murmurs, rubs or gallops. RESPIRATORY: Breath sounds equal bilaterally, no wheezes rales or rhonchi. ABDOMEN: Soft, nontender. Normoactive bowel sounds all 4 quadrants. No guarding or rebound. EXTREMITIES: Normal range of motion, no clubbing or edema. Neurovascularly intact NEUROLOGICAL: Alert and oriented x4.Normal gait and speech. Cranial nerves II through XII grossly intact. [Good gprbsq-vt-dars, good wmcb-[id number]-vnvs, strength equal bilaterally, no dysarthria or aphasia, sensation in tact to soft touch bilaterally, no visual changes, no facial droop] SKIN: Chin laceration 3 cm Procedures Laceration Repair Laceration 1: Size (cm): 3 Description: linear Depth: simple, single layer Local Anesthetic: lidocaine 1% and with epi Amount of anesthesia used (mL): 5 Pre-repair: wound explored, irrigated extensively and deep structures intact Skin layer closed with: nylon Skin layer suture size: 4-0 Number of sutures: 3 Technique: simple, interrupted Scores NIH Stroke Scale Level of Conciousness: Alert, keenly responsive Ask month/age: Answers both questions correctly. Open/close eyes, close hand: Performs both tasks correctly Best gaze horizontal: Normal Visual llanos: No visual loss Facial palsy: Normal symetrical movement Left arm drift: No drift for full 10 sec Right arm drift: No drift for full 10 sec Left leg drift: No drift for full 5 sec Right leg drift: No drift for full 5 sec Limb ataxia: Absent Sensory on face/arms/legs: Normal, no sensory loss Best language: No aphasia, normal Dysarthria: Normal Extinction or inattention: No abnormality Total NIH Stroke scale score: 0 Course Orders Ordered: ED Orders 06/22/24 11:25 XR chest 1V Stat EKG-12 Lead Stat 06/22/24 11:28 Complete Blood Count AUTO DIFF Stat Comprehensive Metabolic Panel Stat Lipase Stat Magnesium Stat NT-proBNP (BNP-Adult 18+) Stat PTT Partial Thromboplastin David Stat Prothrombin Time INR Stat Troponin & CK Cardiac Panel Stat 06/22/24 11:42 CT head/brain wo con Stat 06/22/24 11:59 CT cervical spine wo con Stat 06/22/24 16:38 XR finger LT min 2V Stat Discontinued Medications Sodium Chloride (Normal Saline 0.9%) 1,000 mls @ 1,000 mls/hr IV BOLUS ONE Stop: 06/22/24 13:24 Last Infusion: 06/22/24 13:40 Dose: Infused Documented By: Admin: 06/22/24 12:35 Dose: 1,000 mls/hr Documented By: ARCADIO Acetaminophen (Ofirmev) 1,000 mg in 100 mls @ 400 mls/hr IV NOW ONE Stop: 06/22/24 12:39 Last Infusion: 06/22/24 12:52 Dose: Infused Documented By: Admin: 06/22/24 12:34 Dose: 400 mls/hr Documented By: ARCADIO Sodium Chloride (Normal Saline 0.9%) 1,000 mls @ 1,000 mls/hr IV BOLUS ONE Stop: 06/22/24 14:39 Last Infusion: 06/22/24 14:23 Dose: Infused Documented By: Admin: 06/22/24 13:42 Dose: 1,000 mls/hr Documented By: ARCADIO Lactated Ringer's (Lactated Ringers) 1,000 mls @ 1,000 mls/hr IV BOLUS ONE Stop: 06/22/24 15:27 Last Infusion: 06/22/24 15:09 Dose: Infused Documented By: Admin: 06/22/24 14:31 Dose: 1,000 mls/hr Documented By: ARCADIO Ondansetron HCl (Ondansetron 4 Mg/2 Ml Inj) 4 mg IV NOW ONE Stop: 06/22/24 12:01 Last Admin: 06/22/24 12:10 Dose: 4 mg Documented By: ARCADIO Vital Signs Vital signs: Vital Signs - 8 hr 06/22/24 11:12 06/22/24 11:18 06/22/24 11:19 Temperature 96.9 F L Pulse Rate 58 L 59 L Respiratory Rate 14 Blood Pressure 140/63 Pulse Oximetry 99 99 99 Oxygen Delivery Method Room Air 06/22/24 11:19 06/22/24 11:30 06/22/24 11:40 Temperature Pulse Rate 56 L Respiratory Rate 15 Blood Pressure 140/63 138/63 Pulse Oximetry 100 Oxygen Delivery Method 06/22/24 11:40 06/22/24 12:07 06/22/24 12:08 Temperature Pulse Rate 55 L 57 L Respiratory Rate 12 Blood Pressure 138/61 Pulse Oximetry 99 99 Oxygen Delivery Method 06/22/24 12:08 06/22/24 12:30 06/22/24 12:30 Temperature Pulse Rate 57 L 58 L Respiratory Rate 13 14 Blood Pressure 130/63 Pulse Oximetry 99 100 Oxygen Delivery Method 06/22/24 13:00 06/22/24 13:00 06/22/24 13:30 Temperature Pulse Rate 59 L 62 Respiratory Rate 17 16 Blood Pressure 133/63 Pulse Oximetry 98 100 Oxygen Delivery Method 06/22/24 13:45 06/22/24 13:45 06/22/24 14:00 Temperature Pulse Rate 58 L Respiratory Rate 12 Blood Pressure 138/60 126/62 Pulse Oximetry 100 Oxygen Delivery Method 06/22/24 14:00 06/22/24 17:37 Temperature Pulse Rate 68 51 L Respiratory Rate 13 14 Blood Pressure 164/70 H Pulse Oximetry 97 100 Oxygen Delivery Method Room Air MDM - Syncope Lab Data 06/22/24 11:28 06/22/24 11:28 Labs: Lab Results 06/22/24 Range/Units 11:28 WBC 6.2 (4.5-11.0) X10^3/uL RBC 4.13 L (4.5-5.9) X10^6/uL Hgb 12.8 L (13.5-17.5) g/dL Hct 36.7 L (41-53) % MCV 88.8 (80-100) fL MCH 31.1 (26-34) PG MCHC 35.0 (30-36) % RDW 13.4 (11.6-14.8) % Plt Count 168 (150-400) X10^3/uL Neut % (Auto) 69.7 (50-75) % Lymph % (Auto) 21.4 L (25-40) % [place] % (Auto) 7.5 (3-14) % Eos % (Auto) 0.7 L (2-4) % Baso % (Auto) 0.7 (0-2) % Neut # (Auto) 4300 (5616-4758) /uL Lymph # (Auto) 1300 (0737-7711) /uL [place] # (Auto) 500 (0-900) /uL Eos # (Auto) 0 (0-450) /uL Baso # (Auto) 0 (0-100) /uL PT 12.6 H (9.4-12.5) SECONDS INR 1.1 (0.9-1.3) APTT 32 (25.1-36.5) SECONDS Sodium 138 (137-145) mmol/L Potassium 3.5 (3.4-5.1) mmol/L Chloride 107 (98-107) mmol/L Carbon Dioxide 19 L (22-32) mmol/L BUN 27 H (9-20) mg/dL Creatinine 1.21 (0.66-1.25) mg/dL Estimated GFR > 60 (>60) mL/min BUN/Creatinine Ratio 22.3 H (6-22) Glucose 115 H (80-110) mg/dL Calcium 9.3 (8.4-10.2) mg/dL Magnesium 2.1 (1.6-2.3) mg/dL Total Bilirubin 0.9 (0.2-1.3) mg/dL AST 32 (17-59) IU/L ALT 21 (<50) IU/L Alkaline Phosphatase 55 (38-126) U/L Total Creatine Kinase 418 H (55-170) U/L Troponin I < 0.012 (0.01-0.034) ng/mL NT-Pro-B Natriuret Pep 205 H (<125) pg/mL Total Protein 6.9 (6.3-8.2) g/dL Albumin 4.4 (3.5-5.0) g/dL Globulin 2.5 (1.7-4.1) g/dL Albumin/Globulin Ratio 1.8 (1.0-2.8) Lipase 89 (23-300) U/L Point of Care Testing Glucose POC 110 Imaging Data Chest x-ray: Radiologist's Impression: PROCEDURE: XR CHEST 1V INDICATIONS: chest pain TECHNIQUE: One view of the chest was acquired. COMPARISON: None. FINDINGS: Surgical changes and devices: None. Lungs and pleura: Lungs are clear. No pleural effusions or pneumothorax. Mediastinum: Mediastinal contours appear normal. Heart size is normal. Bones and chest wall: No suspicious bony lesions. Overlying soft tissues appear unremarkable. IMPRESSION: No acute cardiopulmonary abnormality is seen. Dictated by: Isabel Melendez MD, PhD on 06/22/2024 at 12:28 CT scan - head: Radiologist's Impression: PROCEDURE: CT HEAD/BRAIN WO CON INDICATIONS: syncope TECHNIQUE: Noncontrast 4.5 mm thick angled axial sections acquired from the foramen magnum to the vertex, with coronal and sagittal reformats. For radiation dose reduction, the following was used: automated exposure control, adjustment of mA and/or kV according to patient size. COMPARISON: None. FINDINGS: Image quality: Diagnostic. CSF spaces: Basal cisterns are patent. No extra-axial fluid collections. The ventricles are symmetric in size and shape. Brain: No intracranial bleeds or masses. There is cerebral volume loss for age, with resultant ventricular and sulcal prominence. There are periventricular and deep white matter chronic small vessel ischemic changes. There is intracranial internal carotid artery atherosclerosis. Skull and face: Calvarium and visualized facial bones appear intact, without suspicious lesions. Sinuses: Visualized sinuses and mastoids are clear. IMPRESSION: No acute intracranial pathology. Dictated by: Isabel Melendez MD, PhD on 06/22/2024 at 12:29 CT - cervical spine: Radiologist's Impression: PROCEDURE: CT CERVICAL SPINE WO CON INDICATIONS: syncope TECHNIQUE: Noncontrast 3 mm thick sections acquired from the skull base to the T4 level. Sagittal and coronal reformats were then constructed. For radiation dose reduction, the following was used: automated exposure control, adjustment of mA and/or kV according to patient size. COMPARISON: None. FINDINGS: Image quality: Excellent. Bones: No fractures or dislocations. Visualized superior ribs are intact. Spine degenerative disc disease and facet arthropathy. Soft tissues: Prevertebral soft tissues are normal in thickness. No paravertebral hematomas. No apical pneumothoraces. IMPRESSION: No fracture. No acute osseous lesion. If symptoms and/or clinical suspicion for pathology persists, evaluation with MRI should be considered for further assessment. Dictated by: Isabel Melendez MD, PhD on 06/22/2024 at 12:31 Extremity x-ray #1: Radiologist's Impression: PROCEDURE: XR FINGER LT MIN 2V INDICATIONS: thumb fall injury TECHNIQUE: AP hand, 2 views of the 3 finger(s) acquired. COMPARISON: [facility], , XR FINGER LT MIN 2V, 07/02/2020, 17:02. FINDINGS: Bones: No fractures or dislocations. No suspicious bony lesions. Soft tissues: No suspicious soft tissue calcifications. IMPRESSION: No acute bony abnormality. If symptoms persist with conservative management, consider cross-sectional imaging such as CT or MRI. Approved by: Nehal Martinez M.D.,Ph.D. on 06/22/2024 at 17:3 ECG Data Attestation: I personally reviewed and interpreted this ECG as follows: Prior ECG tracings: available for review Interpretation: Normal sinus rhythm rate 57 AK interval 198 QRS 84 QTC [address] changes Q-wave noted in lead 3 only similar to prior EKGs in 2008 [facility] Narrative Medical decision making narrative: [facility] CC: Syncopal episode x2 with chin laceration Complicating co-morbidities: Hypertension Medical records reviewed: Prior ED visits Differential considered: Vasovagal cardiac arrhythmia pulmonary embolism intracranial hemorrhage Exam documented above, pertinent findings include: Chin laceration display trimmer strength equal bilaterally no focal deficits, some left thumb swelling no significant contusion or subungual hematoma Lab Test results independently reviewed as above. Pertinent findings: CBC WBC 6.2 hemoglobin 12.9 hematocrit 36.7 platelet 160, sodium 138 potassium 3.5 chloride 107 bicarb 19 BUN 27 creatinine 1.2 previously 1.1 glucose 115 magnesium 2.1 T bili 0.9 AST 32 ALT 21 CPK 418 troponin negative BNP 205 Independently reviewed EKG as above: No ischemia no arrhythmias sinus rhythm Imaging studies independently reviewed: CT head neck and facial bones no fracture intracranial hemorrhage Chest x-ray does not show any cardiopulmonary process Some x-ray no fracture Consultations: None Treatments: Multiple L of IV fluids to normal saline 1 Re-evaluations: Attempted ambulation a couple of times 1st after 2 L he needed a walker still was unstable. Finally 1/3 L and was able to ambulate without the walker. Discussion: Patient 73-year-old male presents today with a syncopal episode. He had a repeat syncopal episode very quickly after the 1st. I think he vasovagal. He does have multiple blood pressure medications he reports feeling dizzy with some of them and has for about a month or so. He was never truly hypotensive. He did require multiple L of IV fluids before he actually urinated and started feeling better. He only had a mild elevation of creatinine of 1.2 previously is 1.1. He did have a slight metabolic acidosis bicarb of 19. Imaging head neck face did not show any abnormality. Chin was easily sutured. At this time I recommended that he follow up with his primary care provider he actually reports that while in the ED already called and made appointment for July 04. I did recommend that he have his sutures removed before then. He feels comfortable and ready to go home. We talked about how he should not drive and he agreed his will pick him Discharge Plan Departure Patient Disposition: Home Clinical Impression: Vasovagal syncope, Chin laceration Instructions: DI for Syncope in Adults (Fainting) Activity Restrictions/Additional Instructions: *You have been diagnosed with syncopal episode *What to do: At this time I do think he need to increase your fluid intake. It is also maybe related to your blood pressure medication. Please talk with your providers about changing your medication does not seem like you are tolerating your med Have your sutures removed in about 7 days. Keep area clean and dry with soap and water. Apply antibiotic ointment 1-2 times daily. If it gets red or swollen then you need to be re-evaluated *Continue to take medications as directed *Follow up with your primary care provider in 2-3 days or call [phone] *Return to ER if you should have recurrent episode of passing out chest pain palpitations or any new, worsening or concerning symptoms Prescriptions: No Action simvastatin 40 MG tablet 40 mg PO QDAY Qty: 0 montelukast [Singulair] 10 MG tablet 10 mg PO QDAY Qty: 0 Terazosin HCl (TERAZOSIN HYDROCHLORIDE) 5 mg PO QDAY Qty: 0 CANDESARTAN/HYDROCHLOROTHIAZID (ATACAND HCT) 1 tab PO QDAY Qty: 0 hydrocodone-acetaminophen [[place]] 5 MG/325 MG tablet 1 tab PO Q6HP PRNQty: 10 0RF Referrals: Adriel Mcclendon DO [Primary Care Provider] - Stand Alone Forms: Patient Portal/API
[2024-06-22 12:00] LABS: NT-proBNP (BNP-Adult 18+) 205 pg/mL (<125); Troponin I < 0.012 ng/mL (0.01-0.034)
[2024-06-22] MEDS: ONDANSETRON 4 MG/2 ML INJ IV (12:10)
[2024-06-22] MEDS: ACETAMINOPHEN IV 1,000 MG/100 ML VIAL 400 MG IV (12:34)
[2024-06-22] MEDS: SODIUM CHLORIDE 0.9% 1,000 ML 1000 ML IV ×2 (12:35→13:42)
--- NOTE | 2024-06-22 13:37 | PC.NURSE ---
Patient was able to ambulate down the singh and back with a walker. He stated that he felt better than before but when he tried without the walker he was a little spacey and slow to maneuver. provider aware. verbal orders in
[2024-06-22] MEDS: LACTATED RINGERS 1,000 ML 1000 ML IV (14:31)
--- NOTE | 2024-06-22 14:35 | PC.NURSE ---
Patient stood up for an ambulation trial following 2nd liter of fluids. He states he still feels fuzzy and lightheaded, walked a short 15 feet and then returned to bed. He was not steady with walking. Dr. Guadalupe aware. He states he cannot pee at this time and has not peed since he started the fluids.
--- NOTE | 2024-06-22 15:09 | PC.NURSE ---
Patient ambulated and reported feeling a little better. He did not state feeling hazy this time. He had no changes in vital signs when standing. He stated that he was not dizzy or lightheaded and requested that he go home.
--- NOTE | 2024-06-22 16:38 | DI.RAD.S_ITS ---
PROCEDURE: XR FINGER LT MIN 2V INDICATIONS: thumb fall injury TECHNIQUE: AP hand, 2 views of the 3 finger(s) acquired. COMPARISON: [facility], , XR FINGER LT MIN 2V, 07/02/2020, 17:02. FINDINGS: Bones: No fractures or dislocations. No suspicious bony lesions. Soft tissues: No suspicious soft tissue calcifications. IMPRESSION: No acute bony abnormality. If symptoms persist with conservative management, consider cross-sectional imaging such as CT or MRI. Approved by: Nehal Martinez M.D.,Ph.D. on 06/22/2024 at 17:30
== END 2024-06-22 17:41 | disposition home or self-care (01) ==
PROVIDERS: Emergency Provider Emergency Medicine; PCP Internal Medicine
DX: R55 Syncope and collapse (principal); S01.81XA Laceration without foreign body of other part of head, initial encounter; R07.9 Chest pain, unspecified
CPT/HCPCS: 12013; 36415; 70450; 70486; 71045; 72125; 73140; 80053; 82550; 82962; 83690; 83735; 83880; 84484; 85025; 85610; 85730; 93005; 96361; 96365; 96375; 99284; J0136; J2405

== ENCOUNTER 2024-09-18 03:02 | Inpatient (IN) | payer MEDICARE, OTHER, SELFPAY ==
[2024-09-18] VITALS (18 sets, daily range): BP systolic 149–198; BP diastolic 70–93; PULSE 54–66; RESP 12–20; TEMP 36.2–37.3; O2SAT 95–100; BMI 24.0
--- NOTE | 2024-09-18 | DI.RAD.S_ITS ---
PROCEDURE: XR GASTROGRAFIN CHALLENGE COMPARISON: [facility], CT, CT ABDOMEN PELVIS W CON, 09/18/2024, 3:40. [facility], CR, XR ABDOMEN MIN 2V, 09/19/2024, 7:43. INDICATIONS: SBO suspected on CT scan Findings and impression: Most of the oral contrast remains in the small bowel and stomach. Distended loops small bowel again seen similar to same day CT. Right hip arthroplasty. Osseous degenerative changes. Dictated by: Marino Young M.D. on 09/19/2024 at 20:21 Approved by: Marino Young M.D. on 09/19/2024 at 20:22
--- NOTE | 2024-09-18 03:00 | ED.ABDPAIN ---
HPI - Abdominal Pain General Chief Complaint: Abdominal Pain Stated Complaint: Abdominal pain Time Seen by Provider: 09/18/24 03:02 Source: patient, RN notes reviewed and old records reviewed Mode of arrival: EMS Limitations: no limitations History of Present Illness HPI narrative: 73-year-old male history of hypertension, dyslipidemia, BPH presents with complaint of nausea vomiting abdominal pain and distention, patient notes he has been also having some diarrhea but that has since stopped in the last 2 days after Imodium. Patient states has not been passing much flatus. He states symptoms has been increasing. States has been about 2 days of symptoms. Patient states had a fever at home. Denies chest pain, denies any shortness of breath. [place] little lightheaded while vomiting but no passing out. States emesis has been liquidy with no black or blood. Stools have not been black or bloody when he was having diarrhea. Denies any dysuria, urgency or frequency. States he had a little bit of similar symptoms in the past 20 got dehydrated while living in [place]. States he takes medication for hypertension and dyslipidemia no aspirin or anticoagulants. States he has a prior hip replacement but no prior abdominal surgeries. Denies any drug allergies. No tobacco, 1-2 alcoholic drinks weekly, no recreational drugs. Patient received 8 mg of Zofran EN route with EMS Related Data Home Medications Medication Instructions Recorded Confirmed CANDESARTAN/HYDROCHLOROTHIAZID 1 tab PO QDAY ##0 02/15/13 (ATACAND HCT) Terazosin HCl (TERAZOSIN 5 mg PO QDAY ##0 02/15/13 HYDROCHLORIDE) montelukast 10 mg tablet 10 mg PO QDAY ##0 02/15/13 (Singulair) simvastatin 40 mg tablet 40 mg PO QDAY ##0 02/15/13 Previous Rx's Medication Instructions Recorded hydrocodone 5 mg-acetaminophen 325 1 tab PO Q6HP PRN #10 tabs 07/15/16 mg tablet ([place]) Allergies Allergy/AdvReac Type Severity Reaction Status Date / Time No Known Drug Allergies Allergy Verified 06/22/24 11:22 Review of Systems Review of Systems ROS Unobtainable: All systems reviewed & are unremarkable except as noted in HPI and below Patient History Medical History (Updated 09/18/24 @ 04:59 by Rosalba Cleary DO) Hypertension BPH (benign prostatic hyperplasia) Surgical History History of carpal tunnel surgery History of hip surgery Social History Smoking Status: Never smoker Exam Narrative Exam Narrative: GENERAL: Alert and oriented x three, male in mild distress HEENT: Head normocephalic, atraumatic, EOMI, pupils reactive, face symmetric, moist mucous membranes NECK: Supple, full range of motion CARDIOVASCULAR: Regular rate and rhythm without murmurs, rubs or gallops. RESPIRATORY: Breath sounds equal bilaterally, no wheezes rales or rhonchi. ABDOMEN: Soft, generalized tenderness, patient appears distended but soft. Normoactive bowel sounds all 4 quadrants. No guarding or rebound, rigidity, no mass, no pulsatile mass or bruit : No CVA tenderness bilaterally EXTREMITIES: Normal range of motion, no clubbing or edema. Neurovascularly intact NEUROLOGICAL: Cranial nerves II through XII grossly intact. Moving all extremities SKIN: Warm, dry, no petechiae, no rashes or lesions. Initial Vital Signs Initial Vital Signs: Vital Signs Temperature 97.1 F L 09/18/24 03:08 Pulse Rate 66 09/18/24 03:08 Respiratory Rate 16 09/18/24 03:08 Blood Pressure 174/78 H 09/18/24 03:08 Pulse Oximetry 100 09/18/24 03:08 Oxygen Delivery Method Room Air 09/18/24 03:08 Course Orders Ordered: ED Orders 09/18/24 Basic Metabolic Panel Routine Complete Blood Count AUTO DIFF Routine 09/18/24 02:53 Complete Blood Count AUTO DIFF Stat Comprehensive Metabolic Panel Stat Lipase Stat 09/18/24 03:08 CT abdomen pelvis w con Stat EKG-12 Lead Stat 09/18/24 04:56 Consult to General Surgery Stat 09/18/24 05:00 Education, smoking cessation ONGOING Acetaminophen (Acetaminophen 325 Mg Tablet) 650 mg PO Q6H PRN PRN Reason: Fever/Mild Pain (1-3) Hydromorphone HCl (Hydromorphone 0.5 Mg Inj) 0.5 mg IV Q2H PRN PRN Reason: Pain, Severe (7-10) Sodium Chloride (Normal Saline 0.9%) 1,000 mls @ 100 mls/hr IV CONT MANA Sodium Chloride (Normal Saline 0.9%) 1,000 mls @ 150 mls/hr IV CONT MANA Naloxone HCl (Naloxone 0.4 Mg/Ml Vial) 0.2 mg IV Q2MIN PRN PRN Reason: Opiate Reversal Ondansetron HCl (Ondansetron 4 Mg/2 Ml Inj) 4 mg IV Q8HR PRN PRN Reason: Nausea And Vomiting Discontinued Medications Sodium Chloride (Normal Saline 0.9%) 500 mls @ 1,000 mls/hr IV BOLUS ONE Stop: 09/18/24 03:36 Last Infusion: 09/18/24 04:04 Dose: Infused Morphine Sulfate (Morphine 4 Mg/Ml Inj) 4 mg IV NOW ONE Stop: 09/18/24 03:08 Last Admin: 09/18/24 03:12 Dose: 4 mg Vital Signs Vital signs: Vital Signs - 8 hr 09/18/24 03:08 09/18/24 03:09 09/18/24 03:18 Temperature 97.1 F L Pulse Rate 66 61 62 Respiratory Rate 16 Blood Pressure 174/78 H Pulse Oximetry 100 98 99 Oxygen Delivery Method Room Air Oxygen Flow Rate 09/18/24 03:18 09/18/24 03:19 09/18/24 03:19 Temperature Pulse Rate 61 Respiratory Rate Blood Pressure 198/81 H 193/88 H Pulse Oximetry 97 Oxygen Delivery Method Oxygen Flow Rate 09/18/24 03:44 09/18/24 03:45 09/18/24 03:45 Temperature Pulse Rate 66 66 Respiratory Rate Blood Pressure 171/75 H Pulse Oximetry 98 99 Oxygen Delivery Method Oxygen Flow Rate 09/18/24 04:00 09/18/24 04:00 Temperature Pulse Rate 62 Respiratory Rate 14 Blood Pressure 158/70 H Pulse Oximetry 98 Oxygen Delivery Method Nasal Cannula Oxygen Flow Rate 2 MDM - Abdominal Pain Lab Data 09/18/24 02:53 09/18/24 02:53 Labs: Lab Results 09/18/24 Range/Units 02:53 WBC 9.9 (4.5-11.0) X10^3/uL RBC 4.52 (4.5-5.9) X10^6/uL Hgb 14.2 (13.5-17.5) g/dL Hct 40.6 L (41-53) % MCV 89.8 (80-100) fL MCH 31.4 (26-34) PG MCHC 35.0 (30-36) % RDW 13.3 (11.6-14.8) % Plt Count 197 (150-400) X10^3/uL Neut % (Auto) 80.9 H (50-75) % Lymph % (Auto) 12.3 L (25-40) % [place] % (Auto) 6.6 (3-14) % Eos % (Auto) 0.1 L (2-4) % Baso % (Auto) 0.1 (0-2) % Neut # (Auto) 8000 H (9019-6314) /uL Lymph # (Auto) 1200 (4709-0474) /uL [place] # (Auto) 600 (0-900) /uL Eos # (Auto) 0 (0-450) /uL Baso # (Auto) 0 (0-100) /uL Sodium 137 (137-145) mmol/L Potassium 3.4 (3.4-5.1) mmol/L Chloride 106 (98-107) mmol/L Carbon Dioxide 21 L (22-32) mmol/L BUN 18 (9-20) mg/dL Creatinine 0.93 (0.66-1.25) mg/dL Estimated GFR > 60 (>60) mL/min BUN/Creatinine Ratio 19.4 (6-22) Glucose 170 H (80-110) mg/dL Calcium 9.3 (8.4-10.2) mg/dL Total Bilirubin 1.0 (0.2-1.3) mg/dL AST 28 (17-59) IU/L ALT 21 (<50) IU/L Alkaline Phosphatase 69 (38-126) U/L Total Protein 7.4 (6.3-8.2) g/dL Albumin 4.4 (3.5-5.0) g/dL Globulin 3.0 (1.7-4.1) g/dL Albumin/Globulin Ratio 1.5 (1.0-2.8) Lipase 23 (23-300) U/L Imaging Data CT scan - abdomen/pelvis: Radiologist's Impression: Dependent bilateral lower lobe atelectasis, small hiatal hernia. [place] fluid with the in the pelvis. Prostate gland isn't enlarged. Dilation of small bowel loops measuring up to 4.6 cm probable transition point within mid abdomen slightly to the left of midline, no pneumoperitoneum or pneumatosis present. Multilevel spondylitic changes thoracolumbar spine anterolisthesis of L4 on L5 with bilateral L4 pars defect. Findings compatible with small bowel obstruction with a transition point within mid abdomen slightly to the left of midline. ECG Data Attestation: I personally reviewed and interpreted this ECG as follows: Prior ECG tracings: not available for review Interpretation: Sinus rhythm rate of 60 SD 192 QRS is 78 QTC of 414, no acute ST depression appreciated. No priors for comparison. MDM Narrative Medical decision making narrative: 73-year-old male with complaint of nausea and vomiting abdominal pain and diarrhea x 2days. Diarrhea since stopped in the last day and patient has not had much flatus. On exam patient has some generalized tenderness does not appear somewhat distended although soft. Labs CBC shows a white count of 9.9 hemoglobin of 14.2 platelets of 197 predominance of neutrophils. Electrolytes are normal except for a CO2 of 21 BUN 18 creatinine 0.93 glucose of 170 LFTs are negative lipase is 23. EKG normal sinus rhythm, rate of [address] abdomen and pelvis consistent with small-bowel obstruction with a transition point within mid abdomen slightly to the left of midline no pneumoperitoneum or pneumatosis noted. Patient had zofran 8mg enroute with EMS, received 500 mL of saline and 4 mg morphine sulfate here in the department. Patient is feeling much more comfortable after this medication. Has not had any emesis since he received Zofran from EMS. Spoke with Dr. Alves, general surgery will consult. Spoke with Dr. Ty, hospitalist accepts for observation for small-bowel obstruction. Updated patient on findings, all questions answered. Discharge Plan Departure Patient Disposition: Admitted as Observation Clinical Impression: Small bowel obstruction Admit Date/Time: 09/18/24 04:59 Admit Provider: Pawel Alves
--- NOTE | 2024-09-18 03:08 | DI.CT.S_ITS ---
PROCEDURE: CT ABDOMEN PELVIS W CON INDICATIONS: n/v, abd pain, concern for sbo TECHNIQUE: After the administration of intravenous contrast, axial sections acquired from the lung bases to the pubic symphysis. Coronal and sagittal reformats were performed. For radiation dose reduction, the following was used: automated exposure control, adjustment of mA and/or kV according to patient size. COMPARISON: None. FINDINGS: Image quality: Diagnostic. Lower Chest: Very subtle ground-glass opacity in the right middle lobe. Dependent atelectasis. No pleural effusion. Small hiatal hernia. ABDOMEN: Liver: No solid mass. Gallbladder: No radiopaque gallstones or wall thickening. Biliary ducts: No biliary dilation. Pancreas: No ductal dilation. Spleen: Size is within normal limits. Adrenal Glands: No adrenal nodules. Kidneys and Ureters: No hydronephrosis. No solid mass. No complex renal cystic lesion which requires follow up. Stomach and Bowel: Colon is not distended. Normal appendix. Stomach is not significantly distended. Small bowel obstruction. Probable transition point to the left of midline in the mid abdomen, (02/18). Peritoneum: Small volume of fluid in the right lower abdomen. No pneumoperitoneum. Ventral Wall: No significant ventral hernia. Abdominal Nodes: No retroperitoneal or mesenteric adenopathy by size criteria. Vessels: Aorta and inferior vena cava are normal in size. Circumferential calcified atherosclerotic plaque. PELVIS: Pelvic Organs: Prostatomegaly with median lobe hypertrophy. Bladder: No bladder wall thickening. No stone. Pelvic Nodes: No enlarged lymph nodes. Miscellaneous: No inguinal hernias are seen. Bones: No aggressive osseous abnormality. Right hip arthroplasty. DDD. Minimal anterolisthesis of L4 on L5. IMPRESSION: Small bowel obstruction. Transition point in the left abdomen. No pneumoperitoneum. No significant discrepancy with the overnight preliminary interpretation. Dictated by: Dmitri Torres M.D. on 09/18/2024 at 8:57 Approved by: Dmitri Torres M.D. on 09/18/2024 at 9:59
--- NOTE | 2024-09-18 03:08 | EKG_ITS ---
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
[2024-09-18] MEDS: MORPHINE 4 MG/ML INJ IV (03:12)
[2024-09-18] MEDS: SODIUM CHLORIDE 0.9% 500 ML 1000 ML IV (03:12)
[2024-09-18 03:19] LABS: Add Manual Diff / Slide Review NO; Basophils Absolute Auto 0 /uL (0-100); Basophils Percent Auto 0.1 % (0-2); Eosinophils Absolute Auto 0 /uL (0-450); Eosinophils Percent Auto 0.1 % (2-4); Hematocrit 40.6 % (41-53); Hemoglobin 14.2 g/dL (13.5-17.5); Lymphocytes Absolute Auto 1200 /uL (1100-4500); Lymphocytes Percent Auto 12.3 % (25-40); Mean Corpuscular Hemoglobin 31.4 PG (26-34); Mean Corpuscular Volume 89.8 fL (80-100); Monocytes Absolute Auto 600 /uL (0-900); Monocytes Percent Auto 6.6 % (3-14); Neutrophils Absolute Auto 8000 /uL (1500-7000); Neutrophils Percent Auto 80.9 % (50-75); Platelet Count 197 X10^3/uL (150-400); Red Blood Cell Count 4.52 X10^6/uL (4.5-5.9); Red Cell Distribution Width 13.3 % (11.6-14.8); White Blood Cell Count 9.9 X10^3/uL (4.5-11.0)
[2024-09-18 03:24] LABS: Alanine Aminotransferase 21 IU/L (<50); Albumin 4.4 g/dL (3.5-5.0); Albumin Globulin Ratio 1.5 (1.0-2.8); Alkaline Phosphatase 69 U/L (38-126); Aspartate Aminotransferase 28 IU/L (17-59); BUN Creatinine Ratio 19.4 (6-22); Blood Urea Nitrogen 18 mg/dL (9-20); Calcium 9.3 mg/dL (8.4-10.2); Carbon Dioxide 21 mmol/L (22-32); Chloride 106 mmol/L (98-107); Estimated Glomerular Filt Rate > 60 mL/min (>60); Glucose 170 mg/dL (80-110); HEMOLYSIS 15 (0-50); Lipase 23 U/L (23-300); Potassium 3.4 mmol/L (3.4-5.1); Sodium 137 mmol/L (137-145); Total Protein 7.4 g/dL (6.3-8.2)
[2024-09-18] MEDS: SODIUM CHLORIDE 0.9% 1,000 ML 100 ML IV ×2 (05:48→16:02)
[2024-09-18] MEDS: FAMOTIDINE 20 MG/2 ML VIAL IV ×3 (05:57→20:13)
[2024-09-18 06:15] LABS: Add Manual Diff / Slide Review NO; Basophils Absolute Auto 0 /uL (0-100); Basophils Percent Auto 0.1 % (0-2); Eosinophils Absolute Auto 0 /uL (0-450); Hematocrit 37.2 % (41-53); Hemoglobin 12.9 g/dL (13.5-17.5); Lymphocytes Absolute Auto 500 /uL (1100-4500); Lymphocytes Percent Auto 7.1 % (25-40); Mean Corpuscular HGB Conc 34.7 % (30-36); Mean Corpuscular Hemoglobin 31.1 PG (26-34); Mean Corpuscular Volume 89.6 fL (80-100); Monocytes Absolute Auto 200 /uL (0-900); Monocytes Percent Auto 3.4 % (3-14); Neutrophils Absolute Auto 6100 /uL (1500-7000); Neutrophils Percent Auto 89.4 % (50-75); Platelet Count 165 X10^3/uL (150-400); Red Blood Cell Count 4.15 X10^6/uL (4.5-5.9); Red Cell Distribution Width 12.9 % (11.6-14.8); White Blood Cell Count 6.8 X10^3/uL (4.5-11.0)
--- NOTE | 2024-09-18 06:20 | PC.NURSE ---
Addendum entered by Jailene Brooks R.N. 09/18/24 06:31: Patient stated he was unable to produce urine sample in ED, last void was around midnight. Bladder scan showed <200cc. 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 Patient is AxOx4, denies nausea or pain at the moment, although reports acid reflux. Hypertensive (see documentation), SpO2 98% on RA. Abdomen is distended & firm, hyperactive bowel tones heard. Denies difficulty breathing, CP, dizziness. Reports that he has fainted x3 at home in past couple days while throwing up, unsure if he hit his head. Notified MD Ty of findings, MD spoke with patient and family. Patient denies headache, no visible injuries noted, pupils are equal and reactive. Order to hold off on head CT for now, continue to monitor for headache or neurological changes. Plan of care ongoing. Medication list will be brought by (Roro).
[2024-09-18 06:23] LABS: BUN Creatinine Ratio 19.3 (6-22); Blood Urea Nitrogen 16 mg/dL (9-20); Calcium 8.8 mg/dL (8.4-10.2); Carbon Dioxide 24 mmol/L (22-32); Chloride 108 mmol/L (98-107); Estimated Glomerular Filt Rate > 60 mL/min (>60); Glucose 142 mg/dL (80-110); HEMOLYSIS < 15 (0-50); Potassium 3.7 mmol/L (3.4-5.1); Sodium 138 mmol/L (137-145)
--- NOTE | 2024-09-18 06:46 | P.HP_ITS ---
History of Present Illness History of Present Illness Chief complaint: Abdominal pain Narrative: 73-year-old male with past medical history of hypertension, dyslipidemia and BPH presents with nausea, vomiting and abdominal pain. Per the patient report, the patient started to have nausea, vomiting, abdominal pain and distention about two days ago. The patient also has some non-blood diarrhea in which he took Imodium for. Since then the patient states that his diarrhea stopped but he has still increasing nausea, vomiting and abdominal pain. Patient describes his abdominal pain as generalized, cramping sometimes sharp and became moderate to severe today. The patient also has some subjective fever but denies any chills. Otherwise the patient denies any chest pain or shortness of breath. In our emergency room, the patient was hemodynamically stable. Labs were relatively benign. CT abdmen shows signs of small bowel obstruction. Note the patient denies any prior abdominal history and denies any prior history of SBO. General surgery was consulted and patient is to be admitted to observation. At this time the patient's nausea and vomiting improve and no NG tube is required. [facility] Medical History (Updated 09/18/24 @ 04:59 by Rosalba Cleary DO) Hypertension BPH (benign prostatic hyperplasia) Surgical History History of carpal tunnel surgery History of hip surgery Social History household members: spouse Smoking Status: Never smoker Meds Home Medications and Allergies Home Medications Medication Instructions Recorded Confirmed Type cetirizine 10 mg PO DAILY 09/18/24 09/18/24 History clonidine 0.3 mg/24 hr weekly 1 patch topical WEEKLY 09/18/24 09/18/24 History transdermal patch coenzyme Q10 200 mg capsule 200 mg PO DAILY 09/18/24 09/18/24 History finasteride 5 mg tablet 5 mg PO DAILY 09/18/24 09/18/24 History minoxidil 2.5 mg tablet 5 mg PO DAILY 09/18/24 09/18/24 History olmesartan 40 mg tablet 40 mg PO DAILY 09/18/24 09/18/24 History rosuvastatin 5 mg tablet 5 mg PO DAILY 09/18/24 09/18/24 History tamsulosin 0.4 mg capsule 0.8 mg PO DAILY 09/18/24 09/18/24 History Allergies Allergy/AdvReac Type Severity Reaction Status Date / Time No Known Drug Allergies Allergy Verified 06/22/24 11:22 Review of Systems Review of Systems ROS: Yes All systems reviewed with the patient and are negative except as otherwise documented Exam Vital Signs (past 8 hours): - 09/18/24 03:08 09/18/24 03:09 09/18/24 03:18 Temperature 97.1 F L Pulse Rate 66 61 62 Respiratory Rate 16 Blood Pressure 174/78 H Pulse Oximetry 100 98 99 Oxygen Delivery Method Room Air Oxygen Flow Rate 09/18/24 03:18 09/18/24 03:19 09/18/24 03:19 Temperature Pulse Rate 61 Respiratory Rate Blood Pressure 198/81 H 193/88 H Pulse Oximetry 97 Oxygen Delivery Method Oxygen Flow Rate 09/18/24 03:44 09/18/24 03:45 09/18/24 03:45 Temperature Pulse Rate 66 66 Respiratory Rate Blood Pressure 171/75 H Pulse Oximetry 98 99 Oxygen Delivery Method Oxygen Flow Rate 09/18/24 04:00 09/18/24 04:00 09/18/24 04:22 Temperature Pulse Rate 62 66 Respiratory Rate 14 Blood Pressure 158/70 H Pulse Oximetry 98 99 Oxygen Delivery Method Nasal Cannula Oxygen Flow Rate 2 09/18/24 04:22 09/18/24 04:23 09/18/24 04:30 Temperature Pulse Rate Respiratory Rate Blood Pressure 156/72 H 155/72 H Pulse Oximetry 99 Oxygen Delivery Method Oxygen Flow Rate 09/18/24 04:33 09/18/24 05:00 09/18/24 05:00 Temperature Pulse Rate 59 L 59 L Respiratory Rate Blood Pressure 168/76 H Pulse Oximetry 99 97 Oxygen Delivery Method Nasal Cannula Oxygen Flow Rate 2 09/18/24 05:20 09/18/24 05:40 Temperature 98 F Pulse Rate 62 Respiratory Rate 16 Blood Pressure 170/92 H Pulse Oximetry 96 Oxygen Delivery Method Room Air Oxygen Flow Rate 0 Oxygen Delivery Method Room Air Oxygen Flow Rate 0 Narrative Exam Narrative: GENERAL: The patient is not in any acute distressed. Awake and alert. HEENT: Nonicteric sclerae, PERRLA, EOMI. Oropharynx clear. Moist mucous membranes. Conjunctivae appear well perfused. HEART: Regular rate and rhythm without murmurs. No lower extremities edema. LUNGS: Clear to auscultation bilaterally. No wheezing, crackles or rhonchi ABDOMEN: Soft, slightly distended. positive bowel sounds, nontender. SKIN: No rash, no excessive bruising, petechiae, or purpura. NEUROLOGIC: AxO x 3. Cranial nerves II-XII intact without motor/sensory deficit. Objective Labs 09/18/24 06:04 09/18/24 06:04 Labs: Laboratory Results - last 24 hr 09/18/24 09/18/24 02:53 06:04 WBC 9.9 6.8 RBC 4.52 4.15 L Hgb 14.2 12.9 L Hct 40.6 L 37.2 L MCV 89.8 89.6 MCH 31.4 31.1 MCHC 35.0 34.7 RDW 13.3 12.9 Plt Count 197 165 Neut % (Auto) 80.9 H 89.4 H Lymph % (Auto) 12.3 L 7.1 L [place] % (Auto) 6.6 3.4 Eos % (Auto) 0.1 L 0.0 L Baso % (Auto) 0.1 0.1 Neut # (Auto) 8000 H 6100 Lymph # (Auto) 1200 500 L [place] # (Auto) 600 200 Eos # (Auto) 0 0 Baso # (Auto) 0 0 Sodium 137 138 Potassium 3.4 3.7 Chloride 106 108 H Carbon Dioxide 21 L 24 BUN 18 16 Creatinine 0.93 0.83 Estimated GFR > 60 > 60 BUN/Creatinine Ratio 19.4 19.3 Glucose 170 H 142 H Calcium 9.3 8.8 Total Bilirubin 1.0 AST 28 ALT 21 Alkaline Phosphatase 69 Total Protein 7.4 Albumin 4.4 Globulin 3.0 Albumin/Globulin Ratio 1.5 Lipase 23 Assessment & Plan Assessment & Plan narrative: Small bowel obstruction. Admit the patient to medical observation. Patient symptoms of nausea and vomiting is improving. No NG placed at this time. General surgery consulted and appreciate further recommendation. NPO. IV fluid. IV antiemetics and pain control. Dehydration. IV fluid Hypertension monitor blood pressure and resume medication accordingly. BPH. Resume home Flomax. DVT PPx SCDs only due to observational status. Code status full code. Disposition likely home in 1 to 2 days Time-Based Coding :: [TOTAL MINUTES] spent with patient and on the chart (including review of chart, obtaining history, exam, reviewing outside data, placing orders, documenting exam and treatment plan, and counseling patient) on [DATE].
--- NOTE | 2024-09-18 07:37 | PM.HP.1 ---
History of Present Illness History of Present Illness Date Patient Seen: 09/18/24 Chief complaint: Abdominal pain Narrative: From night doctor: 73-year-old male with past medical history of hypertension, dyslipidemia and BPH presents with nausea, vomiting and abdominal pain. Per the patient report, the patient started to have nausea, vomiting, abdominal pain and distention about two days ago. The patient also has some non-blood diarrhea in which he took Imodium for. Since then the patient states that his diarrhea stopped but he has still increasing nausea, vomiting and abdominal pain. Patient describes his abdominal pain as generalized, cramping sometimes sharp and became moderate to severe today. The patient also has some subjective fever but denies any chills. Otherwise the patient denies any chest pain or shortness of breath. In our emergency room, the patient was hemodynamically stable. Labs were relatively benign. CT abdmen shows signs of small bowel obstruction. Note the patient denies any prior abdominal history and denies any prior history of SBO. General surgery was consulted and patient is to be admitted to observation. At this time the patient's nausea and vomiting improve and no NG tube is required. Additional information: He was still distended after Gastrografin. He is having no flatus or bowel movement. Intermittent nausea and pain, somewhat better with pain medications. This happened 1 other time before several years ago. At that time he was dehydrated. He denies abdominal surgeries in the past. He does note taking loperamide after having diarrhea for a day, this was yesterday. [facility] Medical History Hypertension BPH (benign prostatic hyperplasia) Surgical History History of carpal tunnel surgery History of hip surgery Social History household members: spouse Smoking Status: Never smoker Meds Home Medications and Allergies Home Medications Medication Instructions Recorded Confirmed Type cetirizine 10 mg PO DAILY 09/18/24 09/18/24 History clonidine 0.3 mg/24 hr weekly 1 patch topical WEEKLY 09/18/24 09/18/24 History transdermal patch coenzyme Q10 200 mg capsule 200 mg PO DAILY 09/18/24 09/18/24 History finasteride 5 mg tablet 5 mg PO DAILY 09/18/24 09/18/24 History minoxidil 2.5 mg tablet 5 mg PO DAILY 09/18/24 09/18/24 History olmesartan 40 mg tablet 40 mg PO DAILY 09/18/24 09/18/24 History rosuvastatin 5 mg tablet 5 mg PO DAILY 09/18/24 09/18/24 History tamsulosin 0.4 mg capsule 0.8 mg PO DAILY 09/18/24 09/18/24 History Allergies Allergy/AdvReac Type Severity Reaction Status Date / Time No Known Drug Allergies Allergy Verified 06/22/24 11:22 Review of Systems Review of Systems Narrative: All else reviewed and otherwise unremarkable except as noted in the history and physical. Exam Vital Signs (past 8 hours): - 09/18/24 03:08 09/18/24 03:09 09/18/24 03:18 Temperature 97.1 F L Pulse Rate 66 61 62 Respiratory Rate 16 Blood Pressure 174/78 H Pulse Oximetry 100 98 99 Oxygen Delivery Method Room Air Oxygen Flow Rate 09/18/24 03:18 09/18/24 03:19 09/18/24 03:19 Temperature Pulse Rate 61 Respiratory Rate Blood Pressure 198/81 H 193/88 H Pulse Oximetry 97 Oxygen Delivery Method Oxygen Flow Rate 09/18/24 03:44 09/18/24 03:45 09/18/24 03:45 Temperature Pulse Rate 66 66 Respiratory Rate Blood Pressure 171/75 H Pulse Oximetry 98 99 Oxygen Delivery Method Oxygen Flow Rate 09/18/24 04:00 09/18/24 04:00 09/18/24 04:22 Temperature Pulse Rate 62 66 Respiratory Rate 14 Blood Pressure 158/70 H Pulse Oximetry 98 99 Oxygen Delivery Method Nasal Cannula Oxygen Flow Rate 2 09/18/24 04:22 09/18/24 04:23 09/18/24 04:30 Temperature Pulse Rate Respiratory Rate Blood Pressure 156/72 H 155/72 H Pulse Oximetry 99 Oxygen Delivery Method Oxygen Flow Rate 09/18/24 04:33 09/18/24 05:00 09/18/24 05:00 Temperature Pulse Rate 59 L 59 L Respiratory Rate Blood Pressure 168/76 H Pulse Oximetry 99 97 Oxygen Delivery Method Nasal Cannula Oxygen Flow Rate 2 09/18/24 05:20 09/18/24 05:40 Temperature 98 F Pulse Rate 62 Respiratory Rate 16 Blood Pressure 170/92 H Pulse Oximetry 96 Oxygen Delivery Method Room Air Oxygen Flow Rate 0 Oxygen Delivery Method Room Air Oxygen Flow Rate 0 Narrative Exam Narrative: NAD, alert and oriented, fluent speech, calm. Normocephalic skull, EOMI, anicteric sclera, symmetric pupils. Oropharynx unremarkable, no droop. Neck supple, midline trachea, no adenopathy. Lungs clear, normal rate and effort. Heart regular, no murmur gallop or rub. Abdomen distended and hypertympanic, but not tender. Hypoactive bowel tones.. Extremities are free of edema. Skin is free of rash or lesions. Joints are not swollen or deformed. Judgment appears to be normal. Objective Imaging CT scan - abdomen: Radiologist's impression: Small bowel obstruction. Transition point in the left abdomen. No pneumoperitoneum. Labs 09/18/24 06:04 09/18/24 06:04 Labs: Laboratory Results - last 24 hr 09/18/24 09/18/24 02:53 06:04 WBC 9.9 6.8 RBC 4.52 4.15 L Hgb 14.2 12.9 L Hct 40.6 L 37.2 L MCV 89.8 89.6 MCH 31.4 31.1 MCHC 35.0 34.7 RDW 13.3 12.9 Plt Count 197 165 Neut % (Auto) 80.9 H 89.4 H Lymph % (Auto) 12.3 L 7.1 L [place] % (Auto) 6.6 3.4 Eos % (Auto) 0.1 L 0.0 L Baso % (Auto) 0.1 0.1 Neut # (Auto) 8000 H 6100 Lymph # (Auto) 1200 500 L [place] # (Auto) 600 200 Eos # (Auto) 0 0 Baso # (Auto) 0 0 Sodium 137 138 Potassium 3.4 3.7 Chloride 106 108 H Carbon Dioxide 21 L 24 BUN 18 16 Creatinine 0.93 0.83 Estimated GFR > 60 > 60 BUN/Creatinine Ratio 19.4 19.3 Glucose 170 H 142 H Calcium 9.3 8.8 Total Bilirubin 1.0 AST 28 ALT 21 Alkaline Phosphatase 69 Total Protein 7.4 Albumin 4.4 Globulin 3.0 Albumin/Globulin Ratio 1.5 Lipase 23 Assessment & Plan Assessment & Plan narrative: 1. Small bowel obstruction. Present on admission and active. 2. Dehydration. Present on admission and improving. 3. Hypertension. Present on admission and stable. 4. BPH.. Present on admission and stable. Plan: -continue IV fluids and analgesics. -NPO -complete Gastrografin challenge. DVT PPx SCDs only due to observational status. Code status full code. Anticipate 1 midnight of hospital care, this supports observation status. Dispo: Home in 1 day. Time-Based Coding :: 35 min spent with patient and on the chart (including review of chart, obtaining history, exam, reviewing outside data, placing orders, documenting exam and treatment plan, and counseling patient) on 09/18. Quality MIPS - Admit I confirm the patient?s Advance Care Plan is present, Code status is documented, Surrogate decision maker is in patient?s record [If Yes, STOP here]: Yes MIPS - Meds 'Current medications' to include all prescriptions, [id number] products, herbals, cannabis/cannabidiol products, and vitamin/mineral/dietary (nutritional) supplements. I have utilized all available resources to obtain, update, or review the patient?s current medications. [If Yes, STOP here]: Yes
[2024-09-18] MEDS: ONDANSETRON 4 MG/2 ML INJ IV (07:55)
[2024-09-18 09:22] LABS: Appearance Urine UA CLEAR; Bilirubin Urine UA NEGATIVE (NEGATIVE); Color Urine UA YELLOW; Glucose Urine UA NEGATIVE (Negative); Ketones Urine UA 1+ (NEGATIVE); Leukocyte Esterase Urine UA NEGATIVE (NEGATIVE); Nitrite Urine UA NEGATIVE (Negative); Occult Blood Urine UA NEGATIVE (Negative); Protein Urine UA NEGATIVE (Negative)
[2024-09-18 09:26] LABS: Urine Volume 10mL (spun)
[2024-09-18 09:27] LABS: Bacteria Urine None Seen; Culture Indicated Urine Cult Not Indicated; RBC Urine None Seen (0-5/HPF); Squamous Epithelial Cell Urine 1-5 /HPF (0-5/HPF); WBC Urine None Seen (0-5/HPF)
--- NOTE | 2024-09-18 11:18 | CM.DANOTE ---
B DCP Assessment note Pt is a 73yo M here with SBO followed by hospitalist/general surgery. PCP Adriel Hassan medicare and aric RODGERS reviewed EMR. per chart review, pt lives in [place] with spouse. indep at baseline. per RN, no obvious CM/DCP needs at this time. Per RN, no NG tube currently. Per hospitalist in morning rounds, current plan is for gastrografin challenge, continue IV abx/fluids, and no surgery planned at this time. anticipate dc tomorrow. P: dc home tomorrow pending medically stable, home with spouse support and OP f/u likely. no identified barriers to safe dc home at this time, CM team will follow closely in case any needs arise. ANA MARIA Dean Discharge Planning/Care Management CM Discharge Assessment Start: 09/18/24 11:16 Freq: Status: Active Protocol: Document 09/18/24 11:16 (Rec: 09/18/24 11:18 [id number]) Discharge Planning Assessment Assigned Box Toe Cutter ANA MARIA Carlos DPOA/Assigned Designee Name mitzy Read Contact Information [phone] Advance Directives? Yes Advance Directives on File No History Provided By Patient,Family Member Prior Living Arrangements House Household Members spouse Independent with ADL's Yes Is patient alert and oriented? Yes Discharge Plan Home Referrals Initiated None needed Whiteboard Updated in Patient Room with No name and ext. # of Box Toe Cutter Review Status In Process Please Provide Date Initial DC 09/18/24 Assessment Was Performed Next Review Type Continued Stay Review
--- NOTE | 2024-09-18 12:20 | PM.CN ---
History of Present Illness Consult details Date Patient Seen: 09/18/24 Time Patient Seen: 12:20 Chief complaint: Abdominal pain Reason for consult: Bowel obstruction Requesting provider: Wali Ty Narrative: This is a 73-year-old white male who has a history of a laparoscopic umbilical hernia repair with mesh 10 years ago who presents now with signs and symptoms of a bowel obstruction. He states that he had a similar episode about 4 years ago that resolved with conservative therapy. The hernia repair as his only abdominal surgery. He developed diarrhea over the course of the last 2 weeks, now he has colicky abdominal pain in his lower abdomen, nausea and vomiting which has improved significantly since he was in the ER. He is tolerated drinking the contrast without nausea or vomiting, but he had an increase in pain with the contrast. Meds Home Medications and Allergies Home Medications Medication Instructions Recorded Confirmed Type cetirizine 10 mg PO DAILY 09/18/24 09/18/24 History clonidine 0.3 mg/24 hr weekly 1 patch topical WEEKLY 09/18/24 09/18/24 History transdermal patch coenzyme Q10 200 mg capsule 200 mg PO DAILY 09/18/24 09/18/24 History finasteride 5 mg tablet 5 mg PO DAILY 09/18/24 09/18/24 History minoxidil 2.5 mg tablet 5 mg PO DAILY 09/18/24 09/18/24 History olmesartan 40 mg tablet 40 mg PO DAILY 09/18/24 09/18/24 History rosuvastatin 5 mg tablet 5 mg PO DAILY 09/18/24 09/18/24 History tamsulosin 0.4 mg capsule 0.8 mg PO DAILY 09/18/24 09/18/24 History Allergies Allergy/AdvReac Type Severity Reaction Status Date / Time No Known Drug Allergies Allergy Verified 06/22/24 11:22 Review of Systems Constitutional Constitutional: Reports system reviewed and no additional complaints, except as documented and Reports poor appetite Eyes Eyes: Reports system reviewed and no additional complaints, except as documented ENT Ears, Nose, Mouth, and Throat: Yes system reviewed and no additional complaints, except as documented Cardiovascular Cardiovascular: Reports system reviewed and no additional complaints, except as documented Respiratory Respiratory: Reports system reviewed and no additional complaints, except as documented Gastrointestinal Gastrointestinal: Reports abdominal pain, Reports bloating, Reports cramping, Reports loose stools, Reports nausea and Reports vomiting Genitourinary Genitourinary: Reports system reviewed and no additional complaints, except as documented Musculoskeletal Musculoskeletal: Reports system reviewed and no additional complaints, except as documented Integumentary/Breasts Skin/Breast: Reports system reviewed and no additional complaints, except as documented Neurologic Neurologic: Reports system reviewed and no additional complaints, except as documented Psychiatric Psychiatric: Reports system reviewed and no additional complaints, except as documented Endocrine Endocrine: Reports system reviewed and no additional complaints, except as documented Hematologic/Lymphatic Hematologic/Lymphatic: Reports system reviewed and no additional complaints, except as documented Allergic/Immunologic Allergic/Immunologic: Reports system reviewed and no additional complaints, except as documented Exam Vital Signs (past 8 hours): - 09/18/24 04:22 09/18/24 04:22 09/18/24 04:23 Temperature Pulse Rate 66 Respiratory Rate Blood Pressure 156/72 H Pulse Oximetry 99 99 Oxygen Delivery Method Oxygen Flow Rate 09/18/24 04:30 09/18/24 04:33 09/18/24 05:00 Temperature Pulse Rate 59 L 59 L Respiratory Rate Blood Pressure 155/72 H Pulse Oximetry 99 97 Oxygen Delivery Method Nasal Cannula Oxygen Flow Rate 2 09/18/24 05:00 09/18/24 05:20 09/18/24 05:40 Temperature 98 F Pulse Rate 62 Respiratory Rate 16 Blood Pressure 168/76 H 170/92 H Pulse Oximetry 96 Oxygen Delivery Method Room Air Oxygen Flow Rate 0 09/18/24 08:00 Temperature 97.7 F Pulse Rate 64 Respiratory Rate 15 Blood Pressure 152/76 H Pulse Oximetry 96 Oxygen Delivery Method Oxygen Flow Rate 0 Oxygen Delivery Method Room Air Oxygen Flow Rate 0 Narrative Exam Narrative: Gen: NAD, sitting comfortably in bed, appears well HEENT: Sclera are anicteric, head is normocephalic and atraumatic, trachea is midline. CV: RRR, no JVD Resp: clear to auscultation bilaterally, equal chest wall movement bilaterally Abd: soft, nontender, normoactive bowel sounds. Incisions from his laparoscopic hernia repair are well healed and there is no evidence of recurrence. Ext: no edema, full range of motion Neuro: Cranial nerves II-XII grossly intact, no focal deficits Skin: No erythema or ecchymosis Objective Imaging CT scan - abdomen: My impression: CT scan of the abdomen independently reviewed by me does show some free fluid in the abdomen Labs 09/18/24 06:04 09/18/24 06:04 Labs: Laboratory Results - last 24 hr 09/18/24 09/18/24 09/18/24 02:53 06:04 08:10 WBC 9.9 6.8 RBC 4.52 4.15 L Hgb 14.2 12.9 L Hct 40.6 L 37.2 L MCV 89.8 89.6 MCH 31.4 31.1 MCHC 35.0 34.7 RDW 13.3 12.9 Plt Count 197 165 Neut % (Auto) 80.9 H 89.4 H Lymph % (Auto) 12.3 L 7.1 L [place] % (Auto) 6.6 3.4 Eos % (Auto) 0.1 L 0.0 L Baso % (Auto) 0.1 0.1 Neut # (Auto) 8000 H 6100 Lymph # (Auto) 1200 500 L [place] # (Auto) 600 200 Eos # (Auto) 0 0 Baso # (Auto) 0 0 Sodium 137 138 Potassium 3.4 3.7 Chloride 106 108 H Carbon Dioxide 21 L 24 BUN 18 16 Creatinine 0.93 0.83 Estimated GFR > 60 > 60 BUN/Creatinine Ratio 19.4 19.3 Glucose 170 H 142 H Calcium 9.3 8.8 Total Bilirubin 1.0 AST 28 ALT 21 Alkaline Phosphatase 69 Total Protein 7.4 Albumin 4.4 Globulin 3.0 Albumin/Globulin Ratio 1.5 Lipase 23 Urine Color Yellow Urine Appearance Clear Urine pH 5.0 Ur Specific [place] 1.010 Urine Protein Negative Urine Glucose (UA) Negative Urine Ketones 1+ H Urine Occult Blood Negative Urine Nitrate Negative Urine Bilirubin Negative Urine Urobilinogen 2.0 H Ur Leukocyte Esterase Negative Urine RBC None seen Urine WBC None seen Ur Squamous Epith Cells 1-5 /hpf Urine Bacteria None seen Ur Culture Indicated? Cult not indicated Vol Urine Centrifuged 10ml (spun) [facility] Medical History Hypertension BPH (benign prostatic hyperplasia) Surgical History History of carpal tunnel surgery History of hip surgery Comment: Also had a laparoscopic ventral hernia repair Social History household members: spouse Tobacco & Substance Use Smoking Status: Never smoker Assessment & Plan Assessment and plan (1) Small bowel obstruction: Status: Acute Assessment & Plan narrative: 1. The CT scan by itself would be worrisome that he would need surgical intervention due to the free fluid. However his exam is benign and he is feeling well. He does not have a leukocytosis or tachycardia. No signs of peritonitis. Patient's has had bowel obstructions and he is under the impression that surgery is a last resort. I told him that there are some worrisome findings on the CT scan, we would try a contrast challenge and if that appears to have improved would not necessarily need to operate at this time. If he fails to improve with conservative therapy, he would require a diagnostic laparoscopy. It is possible that there is bowel stuck to the mesh from the laparoscopic repair that may or may not require bowel resection. He understands this possibility and would like to avoid surgery. Time-Based Coding :: [TOTAL MINUTES] spent with patient and on the chart (including review of chart, obtaining history, exam, reviewing outside data, placing orders, documenting exam and treatment plan, and counseling patient) on [DATE]. PROFEE Charge Codes Inpatient or Observation consultation: [id number]
[2024-09-18] MEDS: ACETAMINOPHEN IV 1,000 MG/100 ML VIAL 400 MG IV (15:55)
[2024-09-18] MEDS: KETOROLAC 30 MG/ML VIAL 15 MG IV ×2 (15:55→23:40)
[2024-09-18] MEDS: ATORVASTATIN 20 MG TABLET 10 MG PO (20:13)
--- NOTE | 2024-09-19 06:00 | DI.RAD.S_ITS ---
PROCEDURE: XR ABDOMEN MIN 2V INDICATIONS: follow-up contrast, SBO TECHNIQUE: 2 views of the abdomen were acquired. COMPARISON: None. FINDINGS: Stool gas pattern: Normal-no evidence of ileus or obstruction. Moderate digital enteric contrast is confined to the colon. No free intraperitoneal or extraperitoneal air. No gross evidence of ascites Soft tissues: No abnormal calcifications. No soft tissue masses. Residual contrast in the urinary bladder no gross abnormality Organs: No gross evidence for organomegaly. IMPRESSION: Normal abdomen. Modest residual enteric contrast seen throughout the colon. No residual stomach or small bowel Dictated by: Shubham Jones M.D. on 09/19/2024 at 10:10 Approved by: Shubham Jones M.D. on 09/19/2024 at 10:11
[2024-09-19] MEDS: KETOROLAC 30 MG/ML VIAL 15 MG IV ×2 (06:33→23:13)
--- NOTE | 2024-09-19 07:12 | PM.PN.1 ---
Subjective Subjective Interval history: Admitted with small-bowel obstruction, his 2nd. No history of abdominal surgery. He still has air-fluid levels in the left upper quadrant on his KUB. S: He feels better, is having some diarrheal stools. No nausea unless abdominal pain. Surgery is going to advance his diet. He was a bradycardia of 40 today, no acute findings on ECG. Normal troponin. Recent echo was unremarkable from [facility]. Exam Vital Signs (past 8 hours): Oxygen Delivery Method Room Air Oxygen Flow Rate 0 Narrative Exam Narrative: NAD, alert and oriented. Fluent speech. Lungs are clear, normal rate and effort. Heart is regular, no murmur gallop or rub. Bradycardic. Abdomen is soft, non distended. Extremities are free of edema. Objective ECG Impression: Sinus bradycardia without acute changes noted. Labs 09/18/24 06:04 09/19/24 08:48 Labs: Laboratory Results - last 24 hr 09/18/24 08:10 Urine Color Yellow Urine Appearance Clear Urine pH 5.0 Ur Specific [place] 1.010 Urine Protein Negative Urine Glucose (UA) Negative Urine Ketones 1+ H Urine Occult Blood Negative Urine Nitrate Negative Urine Bilirubin Negative Urine Urobilinogen 2.0 H Ur Leukocyte Esterase Negative Urine RBC None seen Urine WBC None seen Ur Squamous Epith Cells 1-5 /hpf Urine Bacteria None seen Ur Culture Indicated? Cult not indicated Vol Urine Centrifuged 10ml (spun) [facility] Medical History Hypertension BPH (benign prostatic hyperplasia) Surgical History History of carpal tunnel surgery History of hip surgery Social History household members: spouse Smoking Status: Never smoker Assessment & Plan Assessment & Plan narrative: 1. Small bowel obstruction. Present on admission and active. 2. Dehydration. Present on admission and improving. 3. Hypertension. Present on admission and stable. 4. BPH. Present on admission and stable. 5. Pronounced bradycardia, new and active. Plan: -trend troponins -cardiac echo, limited to rule out wall motion abnormalities. -out of bed, advance activity. -discussed with surgeon [id number]. -diet advanced per surgery. DVT PPx SCDs only due to observational status. Code status full code. He requires a secoond midnight of care, he was persistent bowel obstruction symptoms. Time-Based Coding :: [TOTAL MINUTES] spent with patient and on the chart (including review of chart, obtaining history, exam, reviewing outside data, placing orders, documenting exam and treatment plan, and counseling patient) on [DATE].
[2024-09-19 08:00] VITALS: BP 174/76; PULSE 44; RESP 20; TEMP 36.2; O2SAT 100
--- NOTE | 2024-09-19 08:37 | EKG_ITS ---
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
--- NOTE | 2024-09-19 08:42 | DI.ECHO.S_ITS ---
[facility] : : [address] : : YADIRA Altamirano : : [id number] : : Phone: [phone] Echocardiogram Report + + :Name: FALGUNI LANDRUM Study Date: 09/19/2024 Height: 69 in : :[facility] ReadingLocation: Weight: 163 lb : : Gender: Male BSA: 1.9 m2 : :: 1950 Age: 73 yrs BP: 166/84 mmHg: :Reason For Study: CHEST PAIN : :Ordering Physician: SHA, : :YARELI mSall Performed By: Chrystal De La Vega : :Referring: YARELI DALTON : + + Interpretation Summary 1. Normal LV contractility. EF of 60-65%. No WMA. No LVH. Unable to comment on diastolic function. 2. Normal RV contractility. 3. Trace, non hemodynamically significant pericardial effusion. Conclusion: Normal biventricular systolic function. When compared with previous study, no change in biventricular systolic function. Procedure: Images were not obtained from all of the standard acoustic windows due to the limited scope of the study. The study quality was technically adequate. Comparison is made with the echocardiogram of 07/31/2024. The patient was in sinus bradycardia with heart rates between 38- 46 bpm during the exam. Left Ventricle: The left ventricle is normal in size and wall thickness. The ejection fraction is estimated to be 60-65%. Pericardium/ Pleura There is a trivial pericardial effusion noted. There is no pleural effusion. MMode/2D Measurements & Calculations LVIDd: 4.3 cm LVIDs: 2.9 cm FS: 33.9 % IVSd: 0.87 cm LVPWd: 0.73 cm LV maldonado. diameter/BSA (cm/m^2): 2.3 LV sys. diameter/BSA (cm/m^2): 1.5 Reading Physician:
[2024-09-19] MEDS: FAMOTIDINE 20 MG/2 ML VIAL IV (09:16)
[2024-09-19] MEDS: TAMSULOSIN 0.4 MG CAPSULE 0.8 MG PO (09:16)
[2024-09-19] MEDS: ASPIRIN EC 81 MG TABLET PO (09:16)
[2024-09-19 09:23] LABS: Troponin I < 0.012 ng/mL (0.01-0.034)
[2024-09-19 09:47] LABS: Blood Urea Nitrogen 23 mg/dL (9-20); Calcium 8.9 mg/dL (8.4-10.2); Carbon Dioxide 23 mmol/L (22-32); Chloride 115 mmol/L (98-107); Estimated Glomerular Filt Rate > 60 mL/min (>60); Glucose 87 mg/dL (80-110); HEMOLYSIS < 15 (0-50); Magnesium 1.9 mg/dL (1.6-2.3); Potassium 4.1 mmol/L (3.4-5.1); Sodium 144 mmol/L (137-145)
[2024-09-19] MEDS: SODIUM CHLORIDE 0.9% 1,000 ML 1000 ML IV (10:03)
--- NOTE | 2024-09-19 11:08 | CM.DPNOTE ---
DCP Note [employer] reviewed EMR. Per hospitalist in morning rounds, pt having some concerning HR issues. echo pending. surgical input pending for SBO. anticipate another day or so likely unless HR issues persist. Per RN, pt HR in the 30s/40s overnight and into the day. Tropes neg, having chest pressure. BP high. electrolytes WNL. Etiology of HR concerns unclear at this time. 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 P: Medical POC continues to develop. CM team will f/u about CG concerns at home. no identified barriers to safe dc home at this time, CM team will follow closely as medical plan develops. ANA MARIA Dean
--- NOTE | 2024-09-19 12:46 | P.PN_ITS ---
Subjective Subjective Date Patient Seen: 09/19/24 Time Patient Seen: 12:46 Interval history: 73 year old WM improving bowel function, passing flatus. Eager to try food today. No nausea. Exam Vital Signs (past 8 hours): Oxygen Delivery Method Room Air Oxygen Flow Rate 0 Narrative Exam Narrative: Gen: NAD, sitting comfortably in bed, appears well HEENT: Sclera are anicteric, head is normocephalic and atraumatic, trachea is midline. CV: bradycardic, no JVD Resp: clear to auscultation bilaterally, equal chest wall movement bilaterally Abd: soft, nontender, normoactive bowel sounds Ext: no edema, full range of motion Neuro: Cranial nerves II-XII grossly intact, no focal deficits Skin: No erythema or ecchymosis Objective Labs 09/18/24 06:04 09/19/24 08:48 Labs: Laboratory Results - last 24 hr 09/19/24 08:48 Sodium 144 Potassium 4.1 Chloride 115 H Carbon Dioxide 23 BUN 23 H Creatinine 1.00 Estimated GFR > 60 BUN/Creatinine Ratio 23.0 H Glucose 87 Calcium 8.9 Magnesium 1.9 Troponin I < 0.012 [facility] Medical History Hypertension BPH (benign prostatic hyperplasia) Surgical History History of carpal tunnel surgery History of hip surgery Social History household members: spouse Smoking Status: Never smoker Assessment & Plan Assessment and plan (1) Small bowel obstruction: Status: Acute Plan Small bowel obstruction seems to be at least partially improving with contrast in his colon on imaging today, plain films of the abdomen independently reviewed by me. He has a little bit of bloating stone on the left side, but his stomach appears to be reasonable size today. He would like to try to drink today. He has not had any emesis. He is having bowel movements consistent with passing the contrast. Discussed with Dr. Miles. Time-Based Coding :: [TOTAL MINUTES] spent with patient and on the chart (including review of chart, obtaining history, exam, reviewing outside data, placing orders, documenting exam and treatment plan, and counseling patient) on [DATE]. PROFEE Charge codes Subsequent inpatient/observation care: 98226
[2024-09-19] MEDS: SODIUM CHLORIDE 0.9% 1,000 ML 100 ML IV ×2 (13:45→23:20)
[2024-09-19 15:40] LABS: Troponin I < 0.012 ng/mL (0.01-0.034)
[2024-09-19 16:00] VITALS: BP 182/78; PULSE 41; RESP 17; TEMP 36.6; O2SAT 98
--- NOTE | 2024-09-19 16:25 | PC.NURSE ---
0800 Pt resting in bed, heart rate mid 30's -40's-Pt denies nausea, BT + all quadrants, Pt states he feels a bit crampy in his stomach and is feeling a bit of pressure in his chest and dizziness when up walking. Notified Dr. Miles and orders were written and followed.
[2024-09-19 16:51] VITALS: BP 182/78; PULSE 42
[2024-09-19] MEDS: LOSARTAN 25 MG TABLET PO (16:51)
[2024-09-19 18:00] VITALS: BP 160/81
[2024-09-19] MEDS: ACETAMINOPHEN 325 MG TABLET 650 MG PO (18:16)
[2024-09-19 20:00] VITALS: BP 181/85; PULSE 45; RESP 18; TEMP 36; O2SAT 99
[2024-09-19] MEDS: ATORVASTATIN 20 MG TABLET 10 MG PO (20:57)
[2024-09-19 21:27] LABS: Troponin I < 0.012 ng/mL (0.01-0.034)
[2024-09-20] VITALS (19 sets, daily range): BP systolic 147–213; BP diastolic 60–107; PULSE 40–84; RESP 15–21; TEMP 36.3–37; O2SAT 91–100; BMI 26.6
--- NOTE | 2024-09-20 06:00 | DI.RAD.S_ITS ---
PROCEDURE: XR ABDOMEN MIN 2V INDICATIONS: abdominal distention, follow partial SBO TECHNIQUE: 2 views of the abdomen were acquired. COMPARISON: [facility], CR, XR ABDOMEN MIN 2V, 09/19/2024, 7:43. FINDINGS: Surgical changes and devices: Prior right hip arthroplasty. Bowel: No pneumoperitoneum. Oral contrast remains in the transverse colon, ascending colon and descending colon with interval slight decrease in the extent of small bowel loop air distension. Soft tissues: No masses; visualized solid organ contours appear normal in size. No suspicious abdominal calcifications. Bones: No suspicious bony abnormalities. IMPRESSION: Finding is suggestive of resolving small bowel obstruction. No pneumoperitoneum. Dictated by: Roly Lizarraga M.D. on 09/20/2024 at 8:17 Approved by: Roly Lizarraga M.D. on 09/20/2024 at 8:23
[2024-09-20] MEDS: KETOROLAC 30 MG/ML VIAL 15 MG IV ×2 (06:01→15:31)
--- NOTE | 2024-09-20 07:14 | P.PN_ITS ---
Subjective Subjective Interval history: Summary: 73-year-old male admitted with a bowel obstruction with a history of 1 previous episode. One hernia repair in the past. He had nausea and vomiting and diarrhea followed by what appears to be an obstruction. Transition point left upper quadrant. Possible improvement yesterday, but developed profound bradycardia and has no clear explanation for this. Limited echo was performed on September 19 with results pending, troponin is normal. He had a normal echo at [facility] within the last month and has no cardiac history. Hospital course: He had stuttering symptoms and really failure to clearly progress. The decision was made to go to the operating room in the morning and September 20. Subjective: He underwent surgery today. He is a little anxious about his NG tube which was placed in for the immediate postoperative. Surgery recommends removing relatively quickly if he was doing well. He denies any nausea. He was little dizzy. Exam Vital Signs (past 8 hours): - 09/20/24 00:09 09/20/24 04:27 Temperature 97.3 F L 97.7 F Pulse Rate 46 L 46 L Respiratory Rate 18 16 Blood Pressure 147/77 H 148/60 H Pulse Oximetry 98 97 Oxygen Flow Rate 0 0 Oxygen Delivery Method Room Air Oxygen Flow Rate 0 Narrative Exam Narrative: NAD, alert and oriented. Fluent speech. Anxious. Lungs are clear, normal rate and effort. Heart is regular, no murmur gallop or rub. Abdomen is soft, distended, and non tender. Extremities are free of edema. Objective Labs 09/18/24 06:04 09/19/24 08:48 Labs: Laboratory Results - last 24 hr 09/19/24 09/19/24 09/19/24 08:48 15:00 20:40 Sodium 144 Potassium 4.1 Chloride 115 H Carbon Dioxide 23 BUN 23 H Creatinine 1.00 Estimated GFR > 60 BUN/Creatinine Ratio 23.0 H Glucose 87 Calcium 8.9 Magnesium 1.9 Troponin I < 0.012 < 0.012 < 0.012 [facility] Medical History Hypertension BPH (benign prostatic hyperplasia) Surgical History History of carpal tunnel surgery History of hip surgery Social History household members: spouse Smoking Status: Never smoker alcohol intake: current Assessment & Plan Assessment & Plan narrative: 1. Small bowel obstruction. Present on admission and improved. Status post laparoscopy and adhesion lysis on September 20. 2. Dehydration. Present on admission and resolved. 3. Hypertension. Present on admission and stable. 4. BPH. Present on admission and stable. 5. Pronounced bradycardia, new and resolved. PLAN: -anticipate removing NG tube with lowers and started with a clear liquid diet. -pain medication -monitor abdomen -out of bed and encourage ambulation. -Ativan prn anxiety -Monitor HR (maren resolved today) ANSHUL: 09/21 if doing well.
--- NOTE | 2024-09-20 09:02 | P.PN_ITS ---
Subjective Subjective Date Patient Seen: 09/20/24 Time Patient Seen: 09:02 Interval history: Patient has become distended again. X-ray shows the contrast from 2 days ago in the colon and air in the colon, but he still has a dilated loop of small bowel in the left lower quadrant. He has not been able to eat or drink since yesterday. He is doing a good job ambulating but is still not passing much flatus. He is now amenable to surgery. Exam Vital Signs (past 8 hours): - 09/20/24 04:27 09/20/24 08:00 Temperature 97.7 F 97.8 F Pulse Rate 46 L 46 L Respiratory Rate 16 16 Blood Pressure 148/60 H 153/67 H Pulse Oximetry 97 100 Oxygen Flow Rate 0 0 Oxygen Delivery Method Room Air Oxygen Flow Rate 0 Narrative Exam Narrative: Gen: NAD, sitting comfortably in bed, appears well HEENT: Sclera are anicteric, head is normocephalic and atraumatic, trachea is midline. CV: RRR, no JVD Resp: clear to auscultation bilaterally, equal chest wall movement bilaterally Abd: soft, distended, Ext: no edema, full range of motion Neuro: Cranial nerves II-XII grossly intact, no focal deficits Skin: No erythema or ecchymosis Objective Labs 09/18/24 06:04 09/19/24 08:48 Labs: Laboratory Results - last 24 hr 09/19/24 09/19/24 09/19/24 08:48 15:00 20:40 Sodium 144 Potassium 4.1 Chloride 115 H Carbon Dioxide 23 BUN 23 H Creatinine 1.00 Estimated GFR > 60 BUN/Creatinine Ratio 23.0 H Glucose 87 Calcium 8.9 Magnesium 1.9 Troponin I < 0.012 < 0.012 < 0.012 [facility]PLACED BY [facility] Medical History Hypertension BPH (benign prostatic hyperplasia) Surgical History History of carpal tunnel surgery History of hip surgery Social History household members: spouse Smoking Status: Never smoker Assessment & Plan Assessment and plan (1) Small bowel obstruction: Status: Acute Assessment & Plan narrative: Patient has failed to progress with conservative treatment. This appears to be a partial small bowel obstruction, likely adhesions to his previous mesh from his laparoscopic ventral hernia repair. Risks, benefits, and alternatives explained including risks of need for bowel resection and conversion to open. Patient agrees to proceed with laparoscopic enterolysis. Time-Based Coding :: [TOTAL MINUTES] spent with patient and on the chart (including review of chart, obtaining history, exam, reviewing outside data, placing orders, documenting exam and treatment plan, and counseling patient) on [DATE].
[2024-09-20] MEDS: LACTATED RINGERS 1,000 ML 100 ML IV (10:05)
--- NOTE | 2024-09-20 10:59 | CM.DPNOTE ---
JA Cont Reviewed chart. Patient discussed in multidisciplinary rounds. Patient has persistent abd pain, N/V, and has failed conservative management of his SBO. Patient taken to the OR this morning for laparoscopic enterolysis with Dr Alves. Plan remains discharge home w/family and close outpatient follow up. CM team following clinical course closely in case any discharge needs or concerns arise. JANET
[2024-09-20] MEDS: CEFAZOLIN 2 GM/100 ML PREMIX 100 ML IV (11:33)
--- NOTE | 2024-09-20 11:40 | SUR.OPER ---
Supine on padded OR bed, head on pillow, arms padded and tucked at sides, legs uncrossed, safety belt at thigh, tape over blanket over lower legs .
[2024-09-20] MEDS: BUPIVACAINE 0.5% W/ EPI (PF) 30 ML VIAL INJ (11:49)
--- NOTE | 2024-09-20 12:37 | PM.OP.1 ---
Operative Date/Time/Diagnoses Date of procedure: 09/20/24 Time of procedure: 12:37 Pre-op diagnosis: partial small bowel obstruction Post-op diagnosis: same Procedure & Clinicians Procedure: Laparoscopic enterolysis Same procedure as scheduled: Yes Indications: small bowel obstruction, not improving with conservative management, prior lap ventral hernia repair Surgeon: Pawel Alves Click Yes if Unassisted: Yes Anesthesia Type: General Operative Notes Findings: A single omental adhesion to the anterior abdominal wall at the site of the previous hernia repair. All bowel was viable. There was some free fluid in the pelvis and above the liver, the fluid was sent for cytology. There is some edema of the mesentery near the gallbladder, but otherwise the gallbladder appeared normal. Closure Type: primary Specimen(s): other (fluid for cytology) Estimated Blood Loss (mL): 10 Procedure in detail: Patient was failing to improve with conservative treatment, still with a poor appetite, bloating and only passing liquid stool. X-ray obtained today shows still showed dilated small bowel. Patient agreed to laparoscopic enterolysis. Patient was taken to the operating room suite. General anesthesia was induced. Nasogastric tube was placed in the stomach and only about 15 mL of bile was returned. The abdomen was prepped and draped in usual fashion. Time-out was performed. A total of 30 mL of 0.5% Marcaine with epinephrine was infiltrated in all trocar sites. Left upper quadrant incision was made in the abdomen was entered with optical entry. The abdomen was inspected and there was an obvious omental adhesion below the umbilicus in the mid abdomen, likely from his prior hernia repair. The mesh was not visible, however. Two additional 5 mm trocars were placed in the left lateral abdominal wall. Metzenbaum scissors were used to perform lysis of adhesions of the omentum to the anterior abdominal wall. The bowel was run from the terminal ileum to the ligament of Treitz and back to the terminal ileum. All bowel appeared viable there was evidence of a transition point that was already resolving by the end of the case. There was free fluid in the pelvis and above the liver which was sent for cytology. There were no peritoneal implants or liver masses that were concerning. The sigmoid colon and appendix appeared normal. Transverse colon and stomach appeared normal. The liver appeared healthy. There is some edema of the mesentery in the portal region, the liver function tests and pancreatic enzymes were normal on admission, so I would assume this is just reactive to the bowel obstruction. Nasogastric tube position was confirmed. Pneumoperitoneum was relieved. The skin was closed with 4-0 Monocryl and Dermabond. Patient was transferred to PACU in stable condition for anticipated returned to his hospital bed.. Complications: none Post-operative Condition: stable Disposition: PACU Plan for aftercare: NGT x 6 hours, then trial of clear liquids.
[2024-09-20] MEDS: LABETALOL 20 MG/4 ML SYRINGE 5 MG IV (12:53)
[2024-09-20] MEDS: HYDRALAZINE 20 MG/ML VIAL 10 MG IV ×2 (13:47→20:25)
[2024-09-20] MEDS: HEPARIN 5,000 UNIT/ML VIAL 5000 UNIT SUBCUT ×2 (14:05→20:26)
[2024-09-20] MEDS: ACETAMINOPHEN 325 MG TABLET 650 MG PO (14:05)
[2024-09-20] MEDS: TAMSULOSIN 0.4 MG CAPSULE 0.8 MG PO (14:05)
[2024-09-20] MEDS: LORazepam 2 MG/ML INJ 0.5 MG IV (15:45)
[2024-09-20] MEDS: LOSARTAN 25 MG TABLET PO (15:45)
[2024-09-20] MEDS: ATORVASTATIN 20 MG TABLET 10 MG PO (20:25)
[2024-09-21] VITALS (9 sets, daily range): BP systolic 145–206; BP diastolic 67–85; PULSE 49–54; RESP 16–18; TEMP 36.5–36.7; O2SAT 95–97
[2024-09-21] MEDS: KETOROLAC 30 MG/ML VIAL 15 MG IV (05:09)
[2024-09-21] MEDS: HYDRALAZINE 20 MG/ML VIAL 10 MG IV (07:41)
[2024-09-21] MEDS: HEPARIN 5,000 UNIT/ML VIAL 5000 UNIT SUBCUT (08:37)
[2024-09-21] MEDS: LOSARTAN 50 MG TABLET PO (08:37)
--- NOTE | 2024-09-21 09:08 | PM.PNPO.1 ---
Subjective Subjective Date Patient Seen: 09/21/24 Time Patient Seen: 09:09 Interval history: Patient is still having hypertension and bradycardia with lightheadedness. He is tolerating a diet and passing flatus. No BM, yet. Exam Vital Signs (past 8 hours): - 09/21/24 04:18 09/21/24 05:00 09/21/24 06:03 Temperature 97.7 F 97.7 F Pulse Rate 49 L 49 L Respiratory Rate 18 18 Blood Pressure 185/85 H 185/85 H Pulse Oximetry 96 96 96 Oxygen Delivery Method Room Air Oxygen Flow Rate 0 0 09/21/24 07:41 09/21/24 08:37 09/21/24 08:38 Temperature Pulse Rate Respiratory Rate Blood Pressure 206/79 H 145/67 H 145/67 H Pulse Oximetry Oxygen Delivery Method Oxygen Flow Rate Oxygen Delivery Method Room Air Oxygen Flow Rate 0 Narrative Exam Narrative: abdomen is soft, nontender, nondistended incisions are clean, dry, intact. Objective Labs 09/18/24 06:04 09/19/24 08:48 [facility] Medical History Hypertension BPH (benign prostatic hyperplasia) Surgical History History of carpal tunnel surgery History of hip surgery Social History household members: spouse Smoking Status: Never smoker alcohol intake: current Assessment & Plan Post-op Postoperative Procedures: Procedures Operation Date: 09/20/24 10:00 Actual Procedure Side Surgeon p Laparoscopic Enterolysis Pawel Alves MD Postoperative day: 1 Postoperative status: doing well Postoperative status narrative: From a surgery standpoint, will advance diet to a soft diet and recommend that he stay on an [id number] diet for the next 2 weeks. He is still having issues with blood pressure control and symptomatic bradycardia. Will defer to the medical service. Postoperative plan: advance diet Time Spent With Patient Time with patient: 15-24 minutes
[2024-09-21] MEDS: polyethylene glycoL 3350 17 GM POWD.PACK PO (10:00)
--- NOTE | 2024-09-21 10:58 | CM.DPC ---
Addendum entered and electronically signed by ANA MARIA López 09/21/24 11:11: Pt has been medically cleared for home d/c, family will transport home. No further d/c needs indicated at this time. Original Note: DCP Cont. Reviewed EMR and team rounds for status updates. Pt has started on a soft diet, but was hypertensive w/bradycardia and lightheadedness today. No BM yet. Likely d/c on Saturday 09/22 home if diet progresses and bowel function returns.
--- NOTE | 2024-09-21 12:15 | PM.DS.1 ---
History of Present Illness History of Present Illness Date Patient Seen: 09/21/24 Time Patient Seen: 09:05 Chief complaint: Abdominal pain Narrative: From H&P: From night doctor: 73-year-old male with past medical history of hypertension, dyslipidemia and BPH presents with nausea, vomiting and abdominal pain. Per the patient report, the patient started to have nausea, vomiting, abdominal pain and distention about two days ago. The patient also has some non-blood diarrhea in which he took Imodium for. Since then the patient states that his diarrhea stopped but he has still increasing nausea, vomiting and abdominal pain. Patient describes his abdominal pain as generalized, cramping sometimes sharp and became moderate to severe today. The patient also has some subjective fever but denies any chills. Otherwise the patient denies any chest pain or shortness of breath. In our emergency room, the patient was hemodynamically stable. Labs were relatively benign. CT abdmen shows signs of small bowel obstruction. Note the patient denies any prior abdominal history and denies any prior history of SBO. General surgery was consulted and patient is to be admitted to observation. At this time the patient's nausea and vomiting improve and no NG tube is required. Additional information: He was still distended after Gastrografin. He is having no flatus or bowel movement. Intermittent nausea and pain, somewhat better with pain medications. This happened 1 other time before several years ago. At that time he was dehydrated. He denies abdominal surgeries in the past. He does note taking loperamide after having diarrhea for a day, this was yesterday. Discharge Providers Provider Date of admission: 09/19/24 10:18 Discharge Date: 09/21/24 Primary care physician: Adriel Mcclendon DO Consults: 09/18/24 04:56 Consult to General Surgery Stat Comment: Consulting Provider: Pawel Alves Reason for consultation: small bowel obstruction Has provider been notified: Yes 09/20/24 12:45 Consult to Discharge Planning Routine Comment: Discharge provider: Xavi Rodriguez DO Summary Hospital Course Discharge Diagnosis: 1. Small bowel obstruction. 2. Dehydration. 3. Hypertension. 4. BPH. 5. Pronounced sinus bradycardia, new and resolved. 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 He failed conservative management strategies and was taken for laparoscopy with lysis of adhesions on 09/20. The following day he felt much improved. He was ambulatory and pain was well controlled. He was on an easy to chew diet which he was tolerating. He had passed gas but had no bowel movements as of yet. Discussed with surgeon who was okay with discharge home. He was intermittently bradycardic and hypertensive, possibly due to clonidine patch which was removed and/or interactions with anesthesia medications. Review of telemetry events showed sinus bradycardia. He reported some dizziness which improved but he did not require acute pharmacological treatment. His HR was in the mid 50s at the time of discharge and he had no further symptoms. No further evaluation is recommended at this time. He has PCP visit scheduled for next week, recommend review of medications at that time, consider transition off of clonidine for HTN. He was also intermittently hypertensive prior to discharge, though BP was okay at the time of discharge. This was likely due to his home medications being held and pain response after surgery. Recommend monitoring at home, resumption of home medications, and PCP follow up as noted above. Time Spent with Patient Time spent: Greater than 30 minutes Exam Vital Signs (past 8 hours): - 09/21/24 04:18 09/21/24 05:00 09/21/24 06:03 Temperature 97.7 F 97.7 F Pulse Rate 49 L 49 L Respiratory Rate 18 18 Blood Pressure 185/85 H 185/85 H Pulse Oximetry 96 96 96 Oxygen Delivery Method Room Air Oxygen Flow Rate 0 0 09/21/24 07:41 09/21/24 08:00 09/21/24 08:37 Temperature 98.0 F Pulse Rate 54 L Respiratory Rate 16 Blood Pressure 206/79 H 206/76 H 145/67 H Pulse Oximetry 95 Oxygen Delivery Method Oxygen Flow Rate 0 09/21/24 08:38 09/21/24 09:00 Temperature Pulse Rate Respiratory Rate Blood Pressure 145/67 H Pulse Oximetry 95 Oxygen Delivery Method Room Air Oxygen Flow Rate Oxygen Delivery Method Room Air Oxygen Flow Rate 0 Narrative Exam Narrative: NAD, alert and oriented. Fluent speech. Anxious. Lungs are clear, normal rate and effort. Heart is regular, no murmur gallop or rub. Abdomen is S NT ND Extremities are free of edema. Objective Labs 09/18/24 06:04 09/19/24 08:48 [facility] Medical History Hypertension BPH (benign prostatic hyperplasia) Surgical History History of carpal tunnel surgery History of hip surgery Social History household members: spouse Smoking Status: Never smoker alcohol intake: current Discharge Plan Discharge Plan Patient Disposition: Home Provider Discharge Comment: You were admitted to the hospital with a bowel obstruction which required surgery. Continue diet as recommended by the surgeon, okay to resume your home medications when you get home. Continue tylenol, oxycodone sent for severe pain. Discharge orders & Medications Prescriptions: New oxycodone 5 mg tablet 5 mg PO Q6H PRN (Reason: pain) 7 Days Qty: 20 0RF oxycodone-acetaminophen [Percocet] 5-325 mg tablet 1 tab PO Q6H PRN (Reason: pain) 1 Days Qty: 4 0RF Continued minoxidil 2.5 mg tablet 5 mg PO DAILY tamsulosin 0.4 mg capsule 0.8 mg PO DAILY clonidine 0.3 mg/24 hr patch weekly 1 patch topical WEEKLY Rx Instructions: place 1 patch on the skin once a week finasteride 5 mg tablet 5 mg PO DAILY olmesartan 40 mg Tablet 40 mg PO DAILY rosuvastatin 5 mg tablet 5 mg PO DAILY coenzyme Q10 200 mg Capsule 200 mg PO DAILY cetirizine 10 mg PO DAILY Follow up/Referrals: Pawel Alves MD [Physician] - 2 Weeks Adriel Mcclendon DO [Primary Care Provider] - Diet/Activity/Treatments Diet: Diet as Tolerated Diet comment: Soft diet recommended for 2 weeks Activity: As tolerated, no heavy lifting more than 10-15 lbs after surgery. Visit Report/Discharge Packet Instructions: [facility]: Wound Care Stand Alone Forms: Patient Portal/API, Stroke Signs & Symptoms Discharge Data Primary Care Provider: Adriel Mcclendon
--- NOTE | 2024-09-21 12:51 | PC.NURSE ---
D/c instructions reviewed with pt. IV and tele removed. Discussed no driving while taking narcotics. Paper prescription for Percocet given to pt. Pt exited via w/c with [employer] and spouse to private vehicle.
--- NOTE | 2024-09-22 | PATH_ITS ---
Note [facility] Accession Number: [id number] TESTS RESULT FLAG UNITS REF RANGE LAB Clinician Provided Cytology Information No. of containers..01 Other (Miscellaneous) Source: ABDOMINAL FLUID DIAGNOSIS: ABDOMINAL FLUID, PARACENTESIS. NEGATIVE FOR MALIGNANT CELLS. FEW MESOTHELIAL CELLS IN A BACKGROUND OF HISTIOCYTES AND MIXED CHRONIC AND ACUTE INFLAMMATORY CELLS. THIS INTERPRETATION INCLUDES EVALUATION OF A CELL BLOCK. Pathologist ICD10: K56.609 Signed out by: Josefina Gill MD, Pathologist NPI- [id number] Performed by: Augustin García, Plumber Helper ([facility]) Gross description: 30 CC, YELLOW, CLOUDY RECEIVED: FRESH IN BLUE CAP CONTAINER.VO /VDU 09/26/2024 0959 Local FLAG LEGEND: L-Low Normal,H-High Normal,LL-Alert Low,HH-Alert High <-Panic Low,>-Panic High,A-Abnormal,AA-Critical Abnormal Performed at: 01 =Z [facility] [address] [place] [address] [address], [place] [address] Miguel Angel Hopkins MD, Performed at: [address] [facility] [address] [place] [address] [address], [place], [place] [id number] MD Miguel Angel Hopkins MD Phone: [phone]
== END 2024-09-21 13:12 | disposition home or self-care (01) | DRG 337 ==
LOC: ED 04:59 → AC 04:59
PROVIDERS: Hospitalist; Surgery; Admitting Provider Internal Medicine; Emergency Provider Emergency Medicine; PCP Internal Medicine; Referring Provider Emergency Medicine; Visit Provider Internal Medicine
PROC: 0DTE0ZZ Resection of Large Intestine, Open Approach (ICD-10-PCS; principal; 2024-09-20 10:00)
DX: K56.51 Intestinal adhesions [bands], with partial obstruction (principal); E86.0 Dehydration; I10 Essential (primary) hypertension; N40.0 Benign prostatic hyperplasia without lower urinary tract symptoms; R00.1 Bradycardia, unspecified; E78.5 Hyperlipidemia, unspecified; Z98.890 Other specified postprocedural states
CPT/HCPCS: 36415; 74018; 74019; 74177; 80048; 80053; 81001; 83690; 83735; 84484; 85025; 93005; 93307; 96361; 96374; 99284; 99285; G0378; J0134; J0360; J0690; J1100; J1644; J1885; J2060; J2250; J2270; J2405; J2704; J3010; Q9967

== ENCOUNTER → 2025-01-29 10:00 | Outpatient (CLI) | payer MEDICARE, OTHER, SELFPAY ==
[2024-09-18 06:08] VITALS: BMI 24.0
--- NOTE | 2025-01-29 17:42 | DI.NM.S_ITS ---
DATE OF SERVICE: 01/29/2025 EXERCISE PERFUSION STUDY INDICATIONS: Chest pain, hypertension. RADIOPHARMACEUTICAL: 26.2 millicurie technetium-99m Myoview IV was injected at stress and 12.5 millicurie technetium-99m Myoview IV was injected at rest. CARDIAC STRESS: The patient underwent exercise stress test under the supervision of an attending staff. He walked on Henry protocol for 5 minutes and 13 seconds, achieved maximum heart rate of 158, which was 109% of target heart rate. Resting blood pressure 158/83 and peak blood pressure 205/68 mmHg. 7 METs of workload. SHAUNA positive 9%. Baseline rhythm sinus with repolarization changes and some PACs. Stress EKG has sig. artifacts. However, in the immediate recovery there is about 1 to [address] depression in inferior leads and slight upsloping ST depression in leads V4 to V6, which got resolved to baseline within 1 minute in recovery. Recovery has some PACs as well. No complex arrhythmias. The patient did not have any chest pain. The patient felt like fatigue. RAW DATA: There is increased subdiaphragmatic activity. GATED STUDY: Resting LV ejection fraction 74% and stress LV ejection fraction 79% without any obvious wall motion abnormalities. TID ratio 0.84, which is within normal limits. Lung/heart ratio 0.24, which is within normal limits. MYOCARDIAL PERFUSION SCAN: Stress supine, resting supine and stress prone images were compared to each other. Stress supine and resting supine images revealed minimally decreased perfusion of basal inferior wall which got completely resolved during stress prone images. Stress prone images revealed normal myocardial perfusion. Summed stress score and summed rest score is zero. CONCLUSION: I will call this study a normal myocardial perfusion study without any convincing ischemia or infarction. There is evidence of diaphragmatic attenuation artifact, which got resolved during stress prone images. Diminished exercise tolerance. Mildly hypertensive blood pressure response. No anginal symptoms. Baseline EKG some repolarization changes. Hence, immediate recovery EKG changes as stated above does not appear to be true convincing ischemic changes. Baseline PACs. No complex arrhythmias. Overall, low-risk exercise myocardial perfusion study. [facility] - JUAN/maisha/ART doc#: [id number]/job#: [id number] dd: 01/29/2025 17:03:00 dt: 01/29/2025 17:14:00 DICTATING MD/COPIES TO: Nimco Casey MD COPIES MNE: SUSANNE;
== END ==
PROVIDERS: PCP Internal Medicine; Referring Provider Internal Medicine Cardiovascular Disease; Visit Provider Internal Medicine Cardiovascular Disease
DX: R07.9 Chest pain, unspecified (principal); I10 Essential (primary) hypertension
CPT/HCPCS: 78452; 93017; A9502

== ENCOUNTER 2025-02-02 08:45 | Observation (INO) | payer MEDICARE, OTHER, SELFPAY ==
[2024-09-18 06:08] VITALS: BMI 24.0
[2025-02-02] VITALS (137 sets, daily range): BP systolic 92–131; BP diastolic 53–74; PULSE 0–115; RESP 13–35; TEMP 36.5–37.7; O2SAT 92–100; BMI 26.6; BMI 26.9
--- NOTE | 2025-02-02 08:52 | DI.RAD.S_ITS ---
PROCEDURE: XR CHEST 1V INDICATIONS: chest pain TECHNIQUE: One view of the chest was acquired. COMPARISON: [facility], CR, XR CHEST 1V, 06/22/2024, 11:39. FINDINGS: Surgical changes and devices: None. Lungs and pleura: Lungs are clear. No pleural effusions or pneumothorax. Mediastinum: Mediastinal contours appear normal. Heart size is normal. Bones and chest wall: No suspicious bony lesions. Overlying soft tissues appear unremarkable. IMPRESSION: No acute cardiopulmonary abnormality is seen. Dictated by: Nick Gracia M.D. on 02/02/2025 at 9:14 Approved by: Nick Gracia M.D. on 02/02/2025 at 9:14
--- NOTE | 2025-02-02 08:56 | EKG_ITS ---
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
--- NOTE | 2025-02-02 08:59 | ED.SYNCOPE ---
HPI - Syncope General Chief Complaint: Syncope Stated Complaint: unresponsive Time Seen by Provider: 02/02/25 08:53 History of Present Illness HPI narrative: Patient is a 74-year-old male history of significant hypertension presenting today with hypotension. He was followed by for hypertension control. It sounds like he was medication is being adjusted. Seems like chlorthalidone was increased this week from 12.5-25. Possible clonidine is being decreased from 0.3-0.2 he has not been feeling great all week. Some lightheadedness and dizziness. He took medication he was 40. He reports it is normal blood pressure is 140. He was not feeling quite right took his blood pressure was 104 than 101 then a systolic of 80 and by the time EMS arrived they report that the systolic in the 70s and he was minimally responsive. With IV fluids he quickly became arousable. He has a normal glucose. No focal deficits numbness tingling weakness. He was having some chest discomfort which he describes as a tightening. No known history of coronary artery disease. Reports that the pain is not radiating back jaw or shoulder. No nausea. Related Data Home Medications Medication Instructions Recorded Confirmed cetirizine 10 mg PO DAILY 09/18/24 10/05/24 clonidine 0.3 mg/24 hr weekly 1 patch topical WEEKLY 09/18/24 10/05/24 transdermal patch coenzyme Q10 200 mg capsule 200 mg PO DAILY 09/18/24 10/05/24 finasteride 5 mg tablet 5 mg PO DAILY 09/18/24 10/05/24 minoxidil 2.5 mg tablet 5 mg PO DAILY 09/18/24 10/05/24 olmesartan 40 mg tablet 40 mg PO DAILY 09/18/24 10/05/24 rosuvastatin 5 mg tablet 5 mg PO DAILY 09/18/24 10/05/24 tamsulosin 0.4 mg capsule 0.8 mg PO DAILY 09/18/24 10/05/24 Allergies Allergy/AdvReac Type Severity Reaction Status Date / Time No Known Drug Allergies Allergy Verified 10/05/24 13:18 Patient History Medical History (Updated 02/02/25 @ 12:53 by Suly Guadalupe DO) Hypertension BPH (benign prostatic hyperplasia) Surgical History History of carpal tunnel surgery History of hip surgery Social History household members: spouse Smoking Status: Never smoker alcohol intake: current alcohol intake frequency: a few times a month Exam Initial Vital Signs Initial Vital Signs: Vital Signs Pulse Rate 77 02/02/25 08:53 Pulse Oximetry 99 02/02/25 08:53 GENERAL: Alert awake well-appearing 74-year-old male and in no acute distress. HEENT: Head atraumatic,EOMI, pupils reactive, face symmetric, moist mucous membranes CARDIOVASCULAR: Regular rate and rhythm without murmurs, rubs or gallops. RESPIRATORY: Breath sounds equal bilaterally, no wheezes rales or rhonchi. ABDOMEN: Soft, nontender. Normoactive bowel sounds all 4 quadrants. No guarding or rebound. EXTREMITIES: Normal range of motion, no clubbing or edema. Neurovascularly intact NEUROLOGICAL: Alert and oriented x4.Normal gait and speech. Cranial nerves II through XII grossly intact. Good [id number], good [id number], strength equal bilaterally, no dysarthria or aphasia, sensation in tact to soft touch bilaterally, no visual changes, no facial droop SKIN: Warm, dry, no laceration, no petechiae, no rashes or lesions. Course Orders Ordered: ED Orders 02/02/25 08:50 Complete Blood Count AUTO DIFF Stat Comprehensive Metabolic Panel Stat Lipase Stat Magnesium Stat NT-proBNP (BNP-Adult 18+) Stat PTT Partial Thromboplastin David Stat Prothrombin Time INR Stat Troponin & CK Cardiac Panel Stat 02/02/25 08:52 XR chest 1V Stat EKG-12 Lead Stat 02/02/25 10:37 CT angio chest abdomen pelvis Stat Acetaminophen (Acetaminophen 325 Mg Tablet) 650 mg PO Q6H PRN PRN Reason: Fever/Mild Pain (1-3) Al Hydrox/Mg Hydrox/Simethicone (Mag Hydrox/Alum/Simeth 30 Ml Udc) 30 ml PO Q6HR PRN PRN Reason: Dyspepsia Calcium Carbonate (Calcium Carbonate 500 Mg Tab) 1,000 mg PO Q4HR PRN PRN Reason: Dyspepsia Enoxaparin Sodium (Enoxaparin 40 Mg/0.4 Ml Syringe) 40 mg SUBCUT DAILY MANA Finasteride (Finasteride 5 Mg Tablet) 5 mg PO DAILY MANA Sodium Chloride (Normal Saline 0.45%) 1,000 mls @ 100 mls/hr IV CONT MANA Naloxone HCl (Naloxone 0.4 Mg/Ml Vial) 0.2 mg IV Q2MIN PRN PRN Reason: Opiate Reversal Ondansetron HCl (Ondansetron 4 Mg/2 Ml Inj) 4 mg IV Q4HR MANA Pantoprazole Sodium (Pantoprazole Dr 20 Mg Tablet) 20 mg PO 0600 MANA Tamsulosin HCl (Tamsulosin 0.4 Mg Capsule) 0.8 mg PO DAILY MANA Discontinued Medications Aspirin (Aspirin 81 Mg Chew Tab) 324 mg PO NOW ONE Stop: 02/02/25 08:53 Last Admin: 02/02/25 09:20 Dose: 324 mg Documented By: SPF Sodium Chloride (Normal Saline 0.9%) 1,000 mls @ 500 mls/hr IV BOLUS ONE Stop: 02/02/25 12:25 Last Infusion: 02/02/25 11:04 Dose: Infused Documented By: Admin: 02/02/25 10:28 Dose: 999 mls/hr Documented By: SPF Metoclopramide HCl (Metoclopramide 10 Mg/2 Ml Inj) 10 mg IV NOW ONE Stop: 02/02/25 10:29 Last Admin: 02/02/25 10:36 Dose: 10 mg Documented By: CTS Vital Signs Vital signs: Vital Signs - 8 hr 02/02/25 08:53 02/02/25 09:00 02/02/25 09:00 Temperature 98.8 F Pulse Rate 77 80 76 Pulse Rate [Orthostatic Lying] Pulse Rate [Orthostatic Sitting] Pulse Rate [Orthostatic Standing] Respiratory Rate 18 Blood Pressure 131/60 Blood Pressure [Orthostatic Lying] Blood Pressure [Orthostatic Sitting] Pulse Oximetry 99 100 99 Oxygen Delivery Method Room Air 02/02/25 09:00 02/02/25 09:10 02/02/25 09:10 Temperature Pulse Rate 85 Pulse Rate [Orthostatic Lying] Pulse Rate [Orthostatic Sitting] Pulse Rate [Orthostatic Standing] Respiratory Rate 23 Blood Pressure 118/56 L 129/60 Blood Pressure [Orthostatic Lying] Blood Pressure [Orthostatic Sitting] Pulse Oximetry Oxygen Delivery Method 02/02/25 09:20 02/02/25 09:20 02/02/25 09:30 Temperature Pulse Rate 81 82 Pulse Rate [Orthostatic Lying] Pulse Rate [Orthostatic Sitting] Pulse Rate [Orthostatic Standing] Respiratory Rate 25 H 23 Blood Pressure 126/58 L Blood Pressure [Orthostatic Lying] Blood Pressure [Orthostatic Sitting] Pulse Oximetry 99 100 Oxygen Delivery Method 02/02/25 09:30 02/02/25 09:40 02/02/25 09:40 Temperature Pulse Rate 79 Pulse Rate [Orthostatic Lying] Pulse Rate [Orthostatic Sitting] Pulse Rate [Orthostatic Standing] Respiratory Rate 23 Blood Pressure 119/56 L 128/61 Blood Pressure [Orthostatic Lying] Blood Pressure [Orthostatic Sitting] Pulse Oximetry 96 Oxygen Delivery Method 02/02/25 09:50 02/02/25 09:50 02/02/25 10:00 Temperature Pulse Rate 81 81 Pulse Rate [Orthostatic Lying] Pulse Rate [Orthostatic Sitting] Pulse Rate [Orthostatic Standing] Respiratory Rate 21 14 Blood Pressure 115/58 L Blood Pressure [Orthostatic Lying] Blood Pressure [Orthostatic Sitting] Pulse Oximetry 99 95 Oxygen Delivery Method 02/02/25 10:00 02/02/25 10:10 02/02/25 10:10 Temperature Pulse Rate 81 Pulse Rate [Orthostatic Lying] Pulse Rate [Orthostatic Sitting] Pulse Rate [Orthostatic Standing] Respiratory Rate 17 Blood Pressure 119/59 L 118/60 Blood Pressure [Orthostatic Lying] Blood Pressure [Orthostatic Sitting] Pulse Oximetry 96 Oxygen Delivery Method 02/02/25 10:11 02/02/25 10:12 02/02/25 10:13 Temperature Pulse Rate 82 82 81 Pulse Rate [Orthostatic Lying] Pulse Rate [Orthostatic Sitting] Pulse Rate [Orthostatic Standing] Respiratory Rate 16 15 17 Blood Pressure Blood Pressure [Orthostatic Lying] Blood Pressure [Orthostatic Sitting] Pulse Oximetry 96 96 96 Oxygen Delivery Method 02/02/25 10:14 02/02/25 10:15 02/02/25 10:16 Temperature Pulse Rate 83 83 82 Pulse Rate [Orthostatic Lying] Pulse Rate [Orthostatic Sitting] Pulse Rate [Orthostatic Standing] Respiratory Rate 17 18 22 Blood Pressure Blood Pressure [Orthostatic Lying] Blood Pressure [Orthostatic Sitting] Pulse Oximetry 97 98 97 Oxygen Delivery Method 02/02/25 10:16 02/02/25 10:17 02/02/25 10:18 Temperature Pulse Rate 84 93 H Pulse Rate [Orthostatic Lying] Pulse Rate [Orthostatic Sitting] Pulse Rate [Orthostatic Standing] Respiratory Rate Blood Pressure 115/58 L Blood Pressure [Orthostatic Lying] Blood Pressure [Orthostatic Sitting] Pulse Oximetry 98 Oxygen Delivery Method 02/02/25 10:19 02/02/25 10:20 02/02/25 10:20 Temperature Pulse Rate 91 H 93 H Pulse Rate [Orthostatic Lying] Pulse Rate [Orthostatic Sitting] Pulse Rate [Orthostatic Standing] Respiratory Rate 16 13 Blood Pressure 117/56 L Blood Pressure [Orthostatic Lying] Blood Pressure [Orthostatic Sitting] Pulse Oximetry Oxygen Delivery Method 02/02/25 10:21 02/02/25 10:22 02/02/25 10:23 Temperature Pulse Rate 102 H 0 L 113 H Pulse Rate [Orthostatic Lying] Pulse Rate [Orthostatic Sitting] Pulse Rate [Orthostatic Standing] Respiratory Rate 18 30 H 24 Blood Pressure Blood Pressure [Orthostatic Lying] Blood Pressure [Orthostatic Sitting] Pulse Oximetry Oxygen Delivery Method 02/02/25 10:24 02/02/25 10:24 02/02/25 10:25 Temperature Pulse Rate 105 H 104 H Pulse Rate [Orthostatic Lying] Pulse Rate [Orthostatic Sitting] Pulse Rate [Orthostatic Standing] Respiratory Rate 35 H 24 Blood Pressure 92/60 Blood Pressure [Orthostatic Lying] Blood Pressure [Orthostatic Sitting] Pulse Oximetry Oxygen Delivery Method 02/02/25 10:26 02/02/25 10:26 02/02/25 10:27 Temperature Pulse Rate 101 H 98 H Pulse Rate [Orthostatic Lying] Pulse Rate [Orthostatic Sitting] Pulse Rate [Orthostatic Standing] Respiratory Rate 17 29 H Blood Pressure 103/67 Blood Pressure [Orthostatic Lying] Blood Pressure [Orthostatic Sitting] Pulse Oximetry Oxygen Delivery Method 02/02/25 10:28 02/02/25 10:28 02/02/25 10:29 Temperature Pulse Rate 95 H 95 H Pulse Rate [Orthostatic Lying] Pulse Rate [Orthostatic Sitting] Pulse Rate [Orthostatic Standing] Respiratory Rate 25 H 24 Blood Pressure 110/74 Blood Pressure [Orthostatic Lying] Blood Pressure [Orthostatic Sitting] Pulse Oximetry 95 97 Oxygen Delivery Method 02/02/25 10:30 02/02/25 10:30 02/02/25 10:31 Temperature Pulse Rate 99 H 98 H Pulse Rate [Orthostatic Lying] Pulse Rate [Orthostatic Sitting] Pulse Rate [Orthostatic Standing] Respiratory Rate 20 24 Blood Pressure 101/64 Blood Pressure [Orthostatic Lying] Blood Pressure [Orthostatic Sitting] Pulse Oximetry 98 98 Oxygen Delivery Method 02/02/25 10:32 02/02/25 10:33 02/02/25 10:34 Temperature Pulse Rate 95 H 91 H 94 H Pulse Rate [Orthostatic Lying] Pulse Rate [Orthostatic Sitting] Pulse Rate [Orthostatic Standing] Respiratory Rate 22 18 26 H Blood Pressure Blood Pressure [Orthostatic Lying] Blood Pressure [Orthostatic Sitting] Pulse Oximetry 98 97 96 Oxygen Delivery Method 02/02/25 10:35 02/02/25 10:35 02/02/25 10:36 Temperature Pulse Rate 96 H 94 H Pulse Rate [Orthostatic Lying] Pulse Rate [Orthostatic Sitting] Pulse Rate [Orthostatic Standing] Respiratory Rate 19 26 H Blood Pressure 116/55 L Blood Pressure [Orthostatic Lying] Blood Pressure [Orthostatic Sitting] Pulse Oximetry 98 97 Oxygen Delivery Method 02/02/25 10:37 02/02/25 10:37 02/02/25 10:38 Temperature Pulse Rate 98 H 95 H Pulse Rate [Orthostatic Lying] 82 Pulse Rate [Orthostatic Sitting] 94 H Pulse Rate [Orthostatic Standing] 103 H Respiratory Rate 26 H 30 H Blood Pressure Blood Pressure [Orthostatic Lying] 115/58 L Blood Pressure [Orthostatic Sitting] 117/56 L Pulse Oximetry 98 98 Oxygen Delivery Method 02/02/25 10:39 02/02/25 10:40 02/02/25 10:40 Temperature Pulse Rate 95 H 96 H Pulse Rate [Orthostatic Lying] Pulse Rate [Orthostatic Sitting] Pulse Rate [Orthostatic Standing] Respiratory Rate 34 H 27 H Blood Pressure 112/58 L Blood Pressure [Orthostatic Lying] Blood Pressure [Orthostatic Sitting] Pulse Oximetry 98 99 Oxygen Delivery Method 02/02/25 10:41 02/02/25 10:42 02/02/25 10:43 Temperature Pulse Rate 96 H 95 H Pulse Rate [Orthostatic Lying] Pulse Rate [Orthostatic Sitting] Pulse Rate [Orthostatic Standing] Respiratory Rate 32 H 32 H Blood Pressure 120/62 Blood Pressure [Orthostatic Lying] Blood Pressure [Orthostatic Sitting] Pulse Oximetry 98 98 Oxygen Delivery Method 02/02/25 10:43 02/02/25 10:44 02/02/25 10:45 Temperature Pulse Rate 93 H 94 H Pulse Rate [Orthostatic Lying] Pulse Rate [Orthostatic Sitting] Pulse Rate [Orthostatic Standing] Respiratory Rate 28 H 22 Blood Pressure 116/56 L Blood Pressure [Orthostatic Lying] Blood Pressure [Orthostatic Sitting] Pulse Oximetry 97 98 Oxygen Delivery Method 02/02/25 10:45 02/02/25 10:46 02/02/25 10:47 Temperature Pulse Rate 92 H 92 H 88 Pulse Rate [Orthostatic Lying] Pulse Rate [Orthostatic Sitting] Pulse Rate [Orthostatic Standing] Respiratory Rate 28 H 31 H 27 H Blood Pressure Blood Pressure [Orthostatic Lying] Blood Pressure [Orthostatic Sitting] Pulse Oximetry 98 98 Oxygen Delivery Method 02/02/25 10:48 02/02/25 10:48 02/02/25 10:49 Temperature Pulse Rate 86 84 Pulse Rate [Orthostatic Lying] Pulse Rate [Orthostatic Sitting] Pulse Rate [Orthostatic Standing] Respiratory Rate 19 15 Blood Pressure 116/58 L Blood Pressure [Orthostatic Lying] Blood Pressure [Orthostatic Sitting] Pulse Oximetry 98 97 Oxygen Delivery Method 02/02/25 10:50 02/02/25 10:50 02/02/25 10:51 Temperature Pulse Rate 83 84 Pulse Rate [Orthostatic Lying] Pulse Rate [Orthostatic Sitting] Pulse Rate [Orthostatic Standing] Respiratory Rate 17 17 Blood Pressure 109/54 L Blood Pressure [Orthostatic Lying] Blood Pressure [Orthostatic Sitting] Pulse Oximetry 95 97 Oxygen Delivery Method 02/02/25 10:52 02/02/25 10:53 02/02/25 10:54 Temperature Pulse Rate 83 92 H 93 H Pulse Rate [Orthostatic Lying] Pulse Rate [Orthostatic Sitting] Pulse Rate [Orthostatic Standing] Respiratory Rate 14 Blood Pressure Blood Pressure [Orthostatic Lying] Blood Pressure [Orthostatic Sitting] Pulse Oximetry 95 98 98 Oxygen Delivery Method 02/02/25 10:55 02/02/25 10:55 02/02/25 10:56 Temperature Pulse Rate 91 H Pulse Rate [Orthostatic Lying] Pulse Rate [Orthostatic Sitting] Pulse Rate [Orthostatic Standing] Respiratory Rate 24 Blood Pressure 118/59 L 120/56 L Blood Pressure [Orthostatic Lying] Blood Pressure [Orthostatic Sitting] Pulse Oximetry 98 Oxygen Delivery Method 02/02/25 10:56 02/02/25 10:57 02/02/25 10:58 Temperature Pulse Rate 91 H 91 H 90 Pulse Rate [Orthostatic Lying] Pulse Rate [Orthostatic Sitting] Pulse Rate [Orthostatic Standing] Respiratory Rate 17 18 17 Blood Pressure Blood Pressure [Orthostatic Lying] Blood Pressure [Orthostatic Sitting] Pulse Oximetry 98 93 92 Oxygen Delivery Method 02/02/25 10:59 02/02/25 11:00 02/02/25 11:00 Temperature Pulse Rate 89 88 Pulse Rate [Orthostatic Lying] Pulse Rate [Orthostatic Sitting] Pulse Rate [Orthostatic Standing] Respiratory Rate 18 18 Blood Pressure 122/57 L Blood Pressure [Orthostatic Lying] Blood Pressure [Orthostatic Sitting] Pulse Oximetry 92 94 Oxygen Delivery Method 02/02/25 11:01 02/02/25 11:02 02/02/25 11:03 Temperature Pulse Rate 87 87 86 Pulse Rate [Orthostatic Lying] Pulse Rate [Orthostatic Sitting] Pulse Rate [Orthostatic Standing] Respiratory Rate 18 18 18 Blood Pressure Blood Pressure [Orthostatic Lying] Blood Pressure [Orthostatic Sitting] Pulse Oximetry 94 94 94 Oxygen Delivery Method 02/02/25 11:04 02/02/25 11:05 02/02/25 11:05 Temperature Pulse Rate 87 86 Pulse Rate [Orthostatic Lying] Pulse Rate [Orthostatic Sitting] Pulse Rate [Orthostatic Standing] Respiratory Rate 20 18 Blood Pressure 119/59 L Blood Pressure [Orthostatic Lying] Blood Pressure [Orthostatic Sitting] Pulse Oximetry 94 95 Oxygen Delivery Method 02/02/25 11:06 02/02/25 11:07 02/02/25 11:08 Temperature Pulse Rate 84 85 85 Pulse Rate [Orthostatic Lying] Pulse Rate [Orthostatic Sitting] Pulse Rate [Orthostatic Standing] Respiratory Rate 17 17 17 Blood Pressure Blood Pressure [Orthostatic Lying] Blood Pressure [Orthostatic Sitting] Pulse Oximetry 94 94 94 Oxygen Delivery Method 02/02/25 11:09 02/02/25 11:10 02/02/25 11:10 Temperature Pulse Rate 86 86 Pulse Rate [Orthostatic Lying] Pulse Rate [Orthostatic Sitting] Pulse Rate [Orthostatic Standing] Respiratory Rate 21 17 Blood Pressure 116/59 L Blood Pressure [Orthostatic Lying] Blood Pressure [Orthostatic Sitting] Pulse Oximetry 95 98 Oxygen Delivery Method 02/02/25 11:11 02/02/25 11:12 02/02/25 11:13 Temperature Pulse Rate 85 85 85 Pulse Rate [Orthostatic Lying] Pulse Rate [Orthostatic Sitting] Pulse Rate [Orthostatic Standing] Respiratory Rate 18 17 17 Blood Pressure Blood Pressure [Orthostatic Lying] Blood Pressure [Orthostatic Sitting] Pulse Oximetry 95 94 94 Oxygen Delivery Method 02/02/25 11:14 02/02/25 11:15 02/02/25 11:15 Temperature Pulse Rate 86 85 Pulse Rate [Orthostatic Lying] Pulse Rate [Orthostatic Sitting] Pulse Rate [Orthostatic Standing] Respiratory Rate 18 18 Blood Pressure 118/57 L Blood Pressure [Orthostatic Lying] Blood Pressure [Orthostatic Sitting] Pulse Oximetry 95 95 Oxygen Delivery Method 02/02/25 11:16 02/02/25 11:17 02/02/25 11:18 Temperature Pulse Rate 86 83 84 Pulse Rate [Orthostatic Lying] Pulse Rate [Orthostatic Sitting] Pulse Rate [Orthostatic Standing] Respiratory Rate 17 17 17 Blood Pressure Blood Pressure [Orthostatic Lying] Blood Pressure [Orthostatic Sitting] Pulse Oximetry 96 96 96 Oxygen Delivery Method 02/02/25 11:19 02/02/25 11:20 02/02/25 11:20 Temperature Pulse Rate 85 84 Pulse Rate [Orthostatic Lying] Pulse Rate [Orthostatic Sitting] Pulse Rate [Orthostatic Standing] Respiratory Rate 18 18 Blood Pressure 125/58 L Blood Pressure [Orthostatic Lying] Blood Pressure [Orthostatic Sitting] Pulse Oximetry 96 96 Oxygen Delivery Method 02/02/25 11:21 02/02/25 11:22 02/02/25 11:23 Temperature Pulse Rate 84 85 84 Pulse Rate [Orthostatic Lying] Pulse Rate [Orthostatic Sitting] Pulse Rate [Orthostatic Standing] Respiratory Rate 17 18 19 Blood Pressure Blood Pressure [Orthostatic Lying] Blood Pressure [Orthostatic Sitting] Pulse Oximetry 96 96 95 Oxygen Delivery Method 02/02/25 11:24 02/02/25 11:25 02/02/25 11:25 Temperature Pulse Rate 84 85 Pulse Rate [Orthostatic Lying] Pulse Rate [Orthostatic Sitting] Pulse Rate [Orthostatic Standing] Respiratory Rate 17 18 Blood Pressure 125/59 L Blood Pressure [Orthostatic Lying] Blood Pressure [Orthostatic Sitting] Pulse Oximetry 95 95 Oxygen Delivery Method 02/02/25 11:26 02/02/25 11:27 02/02/25 11:28 Temperature Pulse Rate 85 85 85 Pulse Rate [Orthostatic Lying] Pulse Rate [Orthostatic Sitting] Pulse Rate [Orthostatic Standing] Respiratory Rate 17 17 17 Blood Pressure Blood Pressure [Orthostatic Lying] Blood Pressure [Orthostatic Sitting] Pulse Oximetry 95 95 95 Oxygen Delivery Method 02/02/25 11:29 02/02/25 11:30 02/02/25 11:30 Temperature Pulse Rate 85 85 Pulse Rate [Orthostatic Lying] Pulse Rate [Orthostatic Sitting] Pulse Rate [Orthostatic Standing] Respiratory Rate 18 19 Blood Pressure 122/58 L Blood Pressure [Orthostatic Lying] Blood Pressure [Orthostatic Sitting] Pulse Oximetry 95 96 Oxygen Delivery Method 02/02/25 11:31 02/02/25 11:32 02/02/25 11:33 Temperature Pulse Rate 84 85 84 Pulse Rate [Orthostatic Lying] Pulse Rate [Orthostatic Sitting] Pulse Rate [Orthostatic Standing] Respiratory Rate 17 17 17 Blood Pressure Blood Pressure [Orthostatic Lying] Blood Pressure [Orthostatic Sitting] Pulse Oximetry 95 95 95 Oxygen Delivery Method MDM - Syncope Lab Data 02/02/25 08:50 02/02/25 08:50 Labs: Lab Results 02/02/25 Range/Units 08:50 WBC 7.8 (4.5-11.0) X10^3/uL RBC 4.60 (4.5-5.9) X10^6/uL Hgb 13.6 (13.5-17.5) g/dL Hct 39.4 L (41-53) % MCV 85.7 (80-100) fL MCH 29.6 (26-34) PG MCHC 34.5 (30-36) % RDW 14.2 (11.6-14.8) % Plt Count 226 (150-400) X10^3/uL Neut % (Auto) 65.2 (50-75) % Lymph % (Auto) 24.5 L (25-40) % Love % (Auto) 7.5 (3-14) % Eos % (Auto) 1.8 L (2-4) % Baso % (Auto) 1.0 (0-2) % Neut # (Auto) 5100 (9253-1671) /uL Lymph # (Auto) 1900 (4157-2648) /uL Love # (Auto) 600 (0-900) /uL Eos # (Auto) 100 (0-450) /uL Baso # (Auto) 100 (0-100) /uL PT 12.5 (9.4-12.5) SECONDS INR 1.1 (0.9-1.3) APTT 29 (25.1-36.5) SECONDS Sodium 138 (137-145) mmol/L Potassium 4.4 (3.4-5.1) mmol/L Chloride 104 (98-107) mmol/L Carbon Dioxide 23 (22-32) mmol/L BUN 32 H (9-20) mg/dL Creatinine 1.30 H (0.66-1.25) mg/dL Estimated GFR 57 L (>60) mL/min BUN/Creatinine Ratio 24.6 H (6-22) Glucose 156 H (80-110) mg/dL Calcium 9.7 (8.4-10.2) mg/dL Magnesium 2.1 (1.6-2.3) mg/dL Total Bilirubin 0.8 (0.2-1.3) mg/dL AST 28 (17-59) IU/L ALT 20 (<50) IU/L Alkaline Phosphatase 51 (38-126) U/L Total Creatine Kinase 115 (55-170) U/L Troponin I < 0.012 (0.01-0.034) ng/mL NT-Pro-B Natriuret Pep < 20 (<450) pg/mL Total Protein 7.4 (6.3-8.2) g/dL Albumin 4.7 (3.5-5.0) g/dL Globulin 2.7 (1.7-4.1) g/dL Albumin/Globulin Ratio 1.7 (1.0-2.8) Lipase 50 (23-300) U/L Imaging Data Chest x-ray: Radiologist's Impression: PROCEDURE: XR CHEST 1V INDICATIONS: chest pain TECHNIQUE: One view of the chest was acquired. COMPARISON: [facility], , XR CHEST 1V, 06/22/2024, 11:39. FINDINGS: Surgical changes and devices: None. Lungs and pleura: Lungs are clear. No pleural effusions or pneumothorax. Mediastinum: Mediastinal contours appear normal. Heart size is normal. Bones and chest wall: No suspicious bony lesions. Overlying soft tissues appear unremarkable. IMPRESSION: No acute cardiopulmonary abnormality is seen. Dictated by: Nick Gracia M.D. on 02/02/2025 at 9:14 ECG Data Attestation: I personally reviewed and interpreted this ECG as follows: Prior ECG tracings: available for review Interpretation: Normal sinus rhythm rate 80 CO interval 158 QRS [address] changes, previous EKGs shows bradycardia heart rate in the 40s this is actually improved from previous MDM Narrative Medical decision making narrative: MDM CC: Hypotension Complicating co-morbidities: Hypertension Data collected from: EMS patient and Medical records reviewed: Differential considered: Medication reaction sepsis aortic aneurysm dissection Exam documented above, pertinent findings include: NIH is 0 awake alert 74-year-old male no acute or focal deficits Lab Test results independently reviewed as above. 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 Granger, cardiology updated on patient's symptoms reports that chlorthalidone should be decreased back to 12.5 mg. Aware of patient being admitted no further instruction. Dr. Del Toro accepts patient Treatments: IV fluids Re-evaluations: Orthostatics were done at bedside patient had a vasovagal reaction heart rate actually went to 0 on the monitor he vomited was briefly unresponsive CPR was never started. Blood pressure dropped. Discussion: Patient is 74-year-old male who has difficult to control blood pressure presents today with near-syncope and hypotension. I suspect orthostatic he had an event here in the ED and vomited. Never lost pulses CPR was never started. I do suspect that this maybe medication induced. He was no evidence of sepsis or other causes. Definitely reproducible upon standing. Imaging shows ileus or small-bowel obstruction he did vomit but no evidence of bowel ischemia. Abdomen is soft nontender. Hopefully see him in observation Discharge Plan Departure Patient Disposition: Admitted as Observation Clinical Impression: Orthostatic hypotension Admit Date/Time: 02/02/25 12:54 Admit Provider: Miguel Del Toro
[2025-02-02 09:00] LABS: Add Manual Diff / Slide Review NO; Basophils Absolute Auto 100 /uL (0-100); Eosinophils Absolute Auto 100 /uL (0-450); Eosinophils Percent Auto 1.8 % (2-4); Hematocrit 39.4 % (41-53); Hemoglobin 13.6 g/dL (13.5-17.5); Lymphocytes Absolute Auto 1900 /uL (1100-4500); Lymphocytes Percent Auto 24.5 % (25-40); Mean Corpuscular HGB Conc 34.5 % (30-36); Mean Corpuscular Hemoglobin 29.6 PG (26-34); Mean Corpuscular Volume 85.7 fL (80-100); Monocytes Absolute Auto 600 /uL (0-900); Monocytes Percent Auto 7.5 % (3-14); Neutrophils Absolute Auto 5100 /uL (1500-7000); Neutrophils Percent Auto 65.2 % (50-75); Platelet Count 226 X10^3/uL (150-400); Red Cell Distribution Width 14.2 % (11.6-14.8); White Blood Cell Count 7.8 X10^3/uL (4.5-11.0)
[2025-02-02 09:08] LABS: INR 1.1 (0.9-1.3); Prothrombin Time 12.5 SECONDS (9.4-12.5)
[2025-02-02 09:11] LABS: PTT Partial Thromboplastin Tim 29 SECONDS (25.1-36.5)
[2025-02-02 09:12] LABS: Alanine Aminotransferase 20 IU/L (<50); Albumin 4.7 g/dL (3.5-5.0); Albumin Globulin Ratio 1.7 (1.0-2.8); Alkaline Phosphatase 51 U/L (38-126); Aspartate Aminotransferase 28 IU/L (17-59); BUN Creatinine Ratio 24.6 (6-22); Bilirubin Total 0.8 mg/dL (0.2-1.3); Blood Urea Nitrogen 32 mg/dL (9-20); Calcium 9.7 mg/dL (8.4-10.2); Carbon Dioxide 23 mmol/L (22-32); Chloride 104 mmol/L (98-107); Creatine Kinase 115 U/L (55-170); Estimated Glomerular Filt Rate 57 mL/min (>60); Globulin 2.7 g/dL (1.7-4.1); Glucose 156 mg/dL (80-110); HEMOLYSIS 54 (0-50); Lipase 50 U/L (23-300); Magnesium 2.1 mg/dL (1.6-2.3); Potassium 4.4 mmol/L (3.4-5.1); Sodium 138 mmol/L (137-145); Total Protein 7.4 g/dL (6.3-8.2)
[2025-02-02] MEDS: ASPIRIN 81 MG CHEW TAB 324 MG PO (09:20)
[2025-02-02 09:23] LABS: NT-proBNP (BNP-Adult 18+) < 20 pg/mL (<450); Troponin I < 0.012 ng/mL (0.01-0.034)
[2025-02-02] MEDS: SODIUM CHLORIDE 0.9% 1,000 ML 999 ML IV (10:28)
--- NOTE | 2025-02-02 10:34 | PC.NURSE ---
Provider asked for patient to have orthostatic vitals. aviation technicianlillie Blockluis daniel was performing orthostatic. Tech called out to this RN and this RN noted pulse of 28 and immediately went to room. Tech states patient stood only briefly. As this RN entered the room patient helped tech get patient in bed patient heart rate zero and unresponsive at 10:22. Patient began vomiting this RN and tech were holding patient upright. Charlie pinedo called by GRISELDA at 10:22. Provider and all three RN immediately in patient room. Patient regained consciousness and continued to vomit no CPR initiated. Provider ordered additional bag of saline bolus. Fellow RN started this order. Patient going to CT this RN is accompanying patient for imaging.
[2025-02-02] MEDS: METOCLOPRAMIDE 10 MG/2 ML INJ IV (10:36)
--- NOTE | 2025-02-02 10:37 | DI.CT.S_ITS ---
PROCEDURE: CT ANGIO CHEST ABDOMEN PELVIS INDICATIONS: Passing out hypotension chest pain TECHNIQUE: Precontrast 5 mm thick sections acquired from the lung apices to the iliac crests. After the administration of intravenous contrast, 2.5 mm thick sections again acquired from the lung apices to the iliac crests. Maximum intensity projection (MIP) oblique sagittal and coronal reformats were then acquired. For radiation dose reduction, the following was used: automated exposure control. COMPARISON: None. FINDINGS: Image quality: Diagnostic. AORTA: No aortic aneurysm. No acute aortic syndrome. Classic three-vessel arch anatomy. Great vessel origins are widely patent. High-grade celiac origin stenosis. SMA and CORA are patent. Bilateral renal arteries are patent. No iliac or common femoral stenotic disease. Pulmonary tree: No acute pulmonary emboli. CHEST: Lower Neck: No enlarged lymph nodes. Thyroid: No thyroid nodules which require sonographic evaluation. Axillae: No enlarged lymph nodes. Chest Wall: Unremarkable. Lungs and Pleura: No pneumothorax or pleural effusions. There are 4 separate nodules present in the right middle lobe, the largest of which is 0.9 cm, on image 175 of series 7. On image 166 is a 6 mm pulmonary nodule. The other nodules are smaller. No focal pulmonary infiltrates. Heart: Heart size is normal. No pericardial effusion. Diffuse LAD calcifications. Thoracic Vessels: Pulmonary arteries demonstrate normal size. Mediastinum and Briana: No enlarged lymph nodes. Esophagus: Esophagus is diffusely dilated and filled with fluid. There is question of distal esophageal stricture, not definite. ABDOMEN: Liver: No solid mass. Gallbladder: No radiopaque gallstones or wall thickening. Biliary ducts: No biliary dilation. Pancreas: No ductal dilation. Spleen: Size is within normal limits. Adrenal Glands: No adrenal nodules. Kidneys and Ureters: No hydronephrosis. No solid mass. No complex renal cystic lesion which requires follow up. Stomach and Bowel: Stomach is dilated and filled with fluid. There is either a ileus pattern or partial distal small bowel obstruction. Small bowel loops measure up to 3.2 cm. Peritoneum: No abnormal intraperitoneal fluid. No free air. Ventral Wall: No hernia. Abdominal Nodes: No retroperitoneal or mesenteric adenopathy by size criteria. Vessels: Inferior vena cava is normal in size. PELVIS: Pelvic Organs: At least moderate and possibly severe prostatomegaly. Prostate obscured by artifact from total right hip arthroplasty.. Bladder: Unremarkable. Pelvic Nodes: No enlarged lymph nodes. Miscellaneous: No inguinal hernias are seen. Bones: Total right hip arthroplasty. Lumbar degenerative change. IMPRESSION: 1. Normal caliber aorta without dissection or aneurysm. 2. High-grade origin stenosis of the celiac, likely an incidental finding, as the SMA is widely patent. 3. Question ileus pattern versus partial distal small bowel obstruction. 4. Distended stomach filled with fluid, a diffusely dilated esophagus filled with fluid. Question distal esophageal stricture. Comments: Recommend nonemergent EGD to evaluate the distal esophagus. Recommend 3 month follow-up chest CT to document stability or change in the right middle lobe pulmonary nodules. Dictated by: Nick Gracia M.D. on 02/02/2025 at 11:44 Approved by: Nick Gracia M.D. on 02/02/2025 at 11:52
--- NOTE | 2025-02-02 13:28 | PM.HP.1 ---
History of Present Illness History of Present Illness Date Patient Seen: 02/02/25 Chief complaint: orth static hypotension Narrative: Chief complaint: Syncope with collapse with orthostatic hypotension History of present illness: 74-year-old male history of hypertension followed by Dr. Augustin treated with chlorthalidone 25 mg clonidine 0.3 mg minoxidil 2.5 mg and losartan 25. He felt lightheaded and dizzy and had progressively dropping blood pressures until they called EMS who found him collapsed and unresponsive. Is brought to the emergency department rehydrated with some IV fluids. He attempted to stand for measurement of orthostatic blood pressure and a collapsed unresponsive in the emergency department. Patient was given a bolus of IV fluid again blood pressure stabilized and he regained consciousness. Findings the emergency room significant for a change in his BUN creatinine from 16 and 0.6-8 in August 26-. otherwise his hemogram and complete metabolic were unremarkable EKG was also sinus rhythm and unremarkable no acute ST segment or T-wave changes patient had imaging performed with normal chest x-ray and CT of the abdomen and pelvis which did not show significant pathology with the exception of possible ileus. Review of systems: No chest pains or palpitations No fever chills or cough No urinary symptoms No focal weakness Physical exam: Patient is alert conversant very subdued appearing HEENT unremarkable Neck no carotid bruits or JVD Heart rate and rhythm regular no murmurs Lungs clear to auscultation Abdomen nondistended slightly uncomfortable with deep palpation Extremities no edema Neurologic nonfocal Assessment and plan: Orthostatic syncope with relative rise in BUN creatinine that may indicate dehydration Placed in observation Hydrate intravenous fluid Hold antihypertensives Monitor her for signs of developing illness No further orthostatic evaluations today History of small-bowel obstruction status post laparoscopic surgery 4 months ago Observe to see if there is further development of another episode DVT prophylaxis with enoxaparin Code status: Full code but only 1 caodaism of systemic circulation ROSC PFSH Medical History (Updated 02/02/25 @ 12:53 by Suly Guadalupe DO) Hypertension BPH (benign prostatic hyperplasia) Surgical History History of carpal tunnel surgery History of hip surgery Social History household members: spouse Smoking Status: Never smoker alcohol intake: current Meds Home Medications and Allergies Home Medications Medication Instructions Recorded Confirmed Type cetirizine 10 mg PO DAILY 09/18/24 10/05/24 History clonidine 0.3 mg/24 hr weekly 1 patch topical WEEKLY 09/18/24 10/05/24 History transdermal patch coenzyme Q10 200 mg capsule 200 mg PO DAILY 09/18/24 10/05/24 History finasteride 5 mg tablet 5 mg PO DAILY 09/18/24 10/05/24 History minoxidil 2.5 mg tablet 5 mg PO DAILY 09/18/24 10/05/24 History olmesartan 40 mg tablet 40 mg PO DAILY 09/18/24 10/05/24 History rosuvastatin 5 mg tablet 5 mg PO DAILY 09/18/24 10/05/24 History tamsulosin 0.4 mg capsule 0.8 mg PO DAILY 09/18/24 10/05/24 History Allergies Allergy/AdvReac Type Severity Reaction Status Date / Time No Known Drug Allergies Allergy Verified 10/05/24 13:18 Exam Vital Signs (past 8 hours): - 02/02/25 08:53 02/02/25 09:00 02/02/25 09:00 Temperature 98.8 F Pulse Rate 77 80 76 Pulse Rate [Orthostatic Lying] Pulse Rate [Orthostatic Sitting] Pulse Rate [Orthostatic Standing] Respiratory Rate 18 Blood Pressure 131/60 Blood Pressure [Orthostatic Lying] Blood Pressure [Orthostatic Sitting] Pulse Oximetry 99 100 99 Oxygen Delivery Method Room Air 02/02/25 09:00 02/02/25 09:10 02/02/25 09:10 Temperature Pulse Rate 85 Pulse Rate [Orthostatic Lying] Pulse Rate [Orthostatic Sitting] Pulse Rate [Orthostatic Standing] Respiratory Rate 23 Blood Pressure 118/56 L 129/60 Blood Pressure [Orthostatic Lying] Blood Pressure [Orthostatic Sitting] Pulse Oximetry Oxygen Delivery Method 02/02/25 09:20 02/02/25 09:20 02/02/25 09:30 Temperature Pulse Rate 81 82 Pulse Rate [Orthostatic Lying] Pulse Rate [Orthostatic Sitting] Pulse Rate [Orthostatic Standing] Respiratory Rate 25 H 23 Blood Pressure 126/58 L Blood Pressure [Orthostatic Lying] Blood Pressure [Orthostatic Sitting] Pulse Oximetry 99 100 Oxygen Delivery Method 02/02/25 09:30 02/02/25 09:40 02/02/25 09:40 Temperature Pulse Rate 79 Pulse Rate [Orthostatic Lying] Pulse Rate [Orthostatic Sitting] Pulse Rate [Orthostatic Standing] Respiratory Rate 23 Blood Pressure 119/56 L 128/61 Blood Pressure [Orthostatic Lying] Blood Pressure [Orthostatic Sitting] Pulse Oximetry 96 Oxygen Delivery Method 02/02/25 09:50 02/02/25 09:50 02/02/25 10:00 Temperature Pulse Rate 81 81 Pulse Rate [Orthostatic Lying] Pulse Rate [Orthostatic Sitting] Pulse Rate [Orthostatic Standing] Respiratory Rate 21 14 Blood Pressure 115/58 L Blood Pressure [Orthostatic Lying] Blood Pressure [Orthostatic Sitting] Pulse Oximetry 99 95 Oxygen Delivery Method 02/02/25 10:00 02/02/25 10:10 02/02/25 10:10 Temperature Pulse Rate 81 Pulse Rate [Orthostatic Lying] Pulse Rate [Orthostatic Sitting] Pulse Rate [Orthostatic Standing] Respiratory Rate 17 Blood Pressure 119/59 L 118/60 Blood Pressure [Orthostatic Lying] Blood Pressure [Orthostatic Sitting] Pulse Oximetry 96 Oxygen Delivery Method 02/02/25 10:11 02/02/25 10:12 02/02/25 10:13 Temperature Pulse Rate 82 82 81 Pulse Rate [Orthostatic Lying] Pulse Rate [Orthostatic Sitting] Pulse Rate [Orthostatic Standing] Respiratory Rate 16 15 17 Blood Pressure Blood Pressure [Orthostatic Lying] Blood Pressure [Orthostatic Sitting] Pulse Oximetry 96 96 96 Oxygen Delivery Method 02/02/25 10:14 02/02/25 10:15 02/02/25 10:16 Temperature Pulse Rate 83 83 82 Pulse Rate [Orthostatic Lying] Pulse Rate [Orthostatic Sitting] Pulse Rate [Orthostatic Standing] Respiratory Rate 17 18 22 Blood Pressure Blood Pressure [Orthostatic Lying] Blood Pressure [Orthostatic Sitting] Pulse Oximetry 97 98 97 Oxygen Delivery Method 02/02/25 10:16 02/02/25 10:17 02/02/25 10:18 Temperature Pulse Rate 84 93 H Pulse Rate [Orthostatic Lying] Pulse Rate [Orthostatic Sitting] Pulse Rate [Orthostatic Standing] Respiratory Rate Blood Pressure 115/58 L Blood Pressure [Orthostatic Lying] Blood Pressure [Orthostatic Sitting] Pulse Oximetry 98 Oxygen Delivery Method 02/02/25 10:19 02/02/25 10:20 02/02/25 10:20 Temperature Pulse Rate 91 H 93 H Pulse Rate [Orthostatic Lying] Pulse Rate [Orthostatic Sitting] Pulse Rate [Orthostatic Standing] Respiratory Rate 16 13 Blood Pressure 117/56 L Blood Pressure [Orthostatic Lying] Blood Pressure [Orthostatic Sitting] Pulse Oximetry Oxygen Delivery Method 02/02/25 10:21 02/02/25 10:22 02/02/25 10:23 Temperature Pulse Rate 102 H 0 L 113 H Pulse Rate [Orthostatic Lying] Pulse Rate [Orthostatic Sitting] Pulse Rate [Orthostatic Standing] Respiratory Rate 18 30 H 24 Blood Pressure Blood Pressure [Orthostatic Lying] Blood Pressure [Orthostatic Sitting] Pulse Oximetry Oxygen Delivery Method 02/02/25 10:24 02/02/25 10:24 02/02/25 10:25 Temperature Pulse Rate 105 H 104 H Pulse Rate [Orthostatic Lying] Pulse Rate [Orthostatic Sitting] Pulse Rate [Orthostatic Standing] Respiratory Rate 35 H 24 Blood Pressure 92/60 Blood Pressure [Orthostatic Lying] Blood Pressure [Orthostatic Sitting] Pulse Oximetry Oxygen Delivery Method 02/02/25 10:26 02/02/25 10:26 02/02/25 10:27 Temperature Pulse Rate 101 H 98 H Pulse Rate [Orthostatic Lying] Pulse Rate [Orthostatic Sitting] Pulse Rate [Orthostatic Standing] Respiratory Rate 17 29 H Blood Pressure 103/67 Blood Pressure [Orthostatic Lying] Blood Pressure [Orthostatic Sitting] Pulse Oximetry Oxygen Delivery Method 02/02/25 10:28 02/02/25 10:28 02/02/25 10:29 Temperature Pulse Rate 95 H 95 H Pulse Rate [Orthostatic Lying] Pulse Rate [Orthostatic Sitting] Pulse Rate [Orthostatic Standing] Respiratory Rate 25 H 24 Blood Pressure 110/74 Blood Pressure [Orthostatic Lying] Blood Pressure [Orthostatic Sitting] Pulse Oximetry 95 97 Oxygen Delivery Method 02/02/25 10:30 02/02/25 10:30 02/02/25 10:31 Temperature Pulse Rate 99 H 98 H Pulse Rate [Orthostatic Lying] Pulse Rate [Orthostatic Sitting] Pulse Rate [Orthostatic Standing] Respiratory Rate 20 24 Blood Pressure 101/64 Blood Pressure [Orthostatic Lying] Blood Pressure [Orthostatic Sitting] Pulse Oximetry 98 98 Oxygen Delivery Method 02/02/25 10:32 02/02/25 10:33 02/02/25 10:34 Temperature Pulse Rate 95 H 91 H 94 H Pulse Rate [Orthostatic Lying] Pulse Rate [Orthostatic Sitting] Pulse Rate [Orthostatic Standing] Respiratory Rate 22 18 26 H Blood Pressure Blood Pressure [Orthostatic Lying] Blood Pressure [Orthostatic Sitting] Pulse Oximetry 98 97 96 Oxygen Delivery Method 02/02/25 10:35 02/02/25 10:35 02/02/25 10:36 Temperature Pulse Rate 96 H 94 H Pulse Rate [Orthostatic Lying] Pulse Rate [Orthostatic Sitting] Pulse Rate [Orthostatic Standing] Respiratory Rate 19 26 H Blood Pressure 116/55 L Blood Pressure [Orthostatic Lying] Blood Pressure [Orthostatic Sitting] Pulse Oximetry 98 97 Oxygen Delivery Method 02/02/25 10:37 02/02/25 10:37 02/02/25 10:38 Temperature Pulse Rate 98 H 95 H Pulse Rate [Orthostatic Lying] 82 Pulse Rate [Orthostatic Sitting] 94 H Pulse Rate [Orthostatic Standing] 103 H Respiratory Rate 26 H 30 H Blood Pressure Blood Pressure [Orthostatic Lying] 115/58 L Blood Pressure [Orthostatic Sitting] 117/56 L Pulse Oximetry 98 98 Oxygen Delivery Method 02/02/25 10:39 02/02/25 10:40 02/02/25 10:40 Temperature Pulse Rate 95 H 96 H Pulse Rate [Orthostatic Lying] Pulse Rate [Orthostatic Sitting] Pulse Rate [Orthostatic Standing] Respiratory Rate 34 H 27 H Blood Pressure 112/58 L Blood Pressure [Orthostatic Lying] Blood Pressure [Orthostatic Sitting] Pulse Oximetry 98 99 Oxygen Delivery Method 02/02/25 10:41 02/02/25 10:42 02/02/25 10:43 Temperature Pulse Rate 96 H 95 H Pulse Rate [Orthostatic Lying] Pulse Rate [Orthostatic Sitting] Pulse Rate [Orthostatic Standing] Respiratory Rate 32 H 32 H Blood Pressure 120/62 Blood Pressure [Orthostatic Lying] Blood Pressure [Orthostatic Sitting] Pulse Oximetry 98 98 Oxygen Delivery Method 02/02/25 10:43 02/02/25 10:44 02/02/25 10:45 Temperature Pulse Rate 93 H 94 H Pulse Rate [Orthostatic Lying] Pulse Rate [Orthostatic Sitting] Pulse Rate [Orthostatic Standing] Respiratory Rate 28 H 22 Blood Pressure 116/56 L Blood Pressure [Orthostatic Lying] Blood Pressure [Orthostatic Sitting] Pulse Oximetry 97 98 Oxygen Delivery Method 02/02/25 10:45 02/02/25 10:46 02/02/25 10:47 Temperature Pulse Rate 92 H 92 H 88 Pulse Rate [Orthostatic Lying] Pulse Rate [Orthostatic Sitting] Pulse Rate [Orthostatic Standing] Respiratory Rate 28 H 31 H 27 H Blood Pressure Blood Pressure [Orthostatic Lying] Blood Pressure [Orthostatic Sitting] Pulse Oximetry 98 98 Oxygen Delivery Method 02/02/25 10:48 02/02/25 10:48 02/02/25 10:49 Temperature Pulse Rate 86 84 Pulse Rate [Orthostatic Lying] Pulse Rate [Orthostatic Sitting] Pulse Rate [Orthostatic Standing] Respiratory Rate 19 15 Blood Pressure 116/58 L Blood Pressure [Orthostatic Lying] Blood Pressure [Orthostatic Sitting] Pulse Oximetry 98 97 Oxygen Delivery Method 02/02/25 10:50 02/02/25 10:50 02/02/25 10:51 Temperature Pulse Rate 83 84 Pulse Rate [Orthostatic Lying] Pulse Rate [Orthostatic Sitting] Pulse Rate [Orthostatic Standing] Respiratory Rate 17 17 Blood Pressure 109/54 L Blood Pressure [Orthostatic Lying] Blood Pressure [Orthostatic Sitting] Pulse Oximetry 95 97 Oxygen Delivery Method 02/02/25 10:52 02/02/25 10:53 02/02/25 10:54 Temperature Pulse Rate 83 92 H 93 H Pulse Rate [Orthostatic Lying] Pulse Rate [Orthostatic Sitting] Pulse Rate [Orthostatic Standing] Respiratory Rate 14 Blood Pressure Blood Pressure [Orthostatic Lying] Blood Pressure [Orthostatic Sitting] Pulse Oximetry 95 98 98 Oxygen Delivery Method 02/02/25 10:55 02/02/25 10:55 02/02/25 10:56 Temperature Pulse Rate 91 H Pulse Rate [Orthostatic Lying] Pulse Rate [Orthostatic Sitting] Pulse Rate [Orthostatic Standing] Respiratory Rate 24 Blood Pressure 118/59 L 120/56 L Blood Pressure [Orthostatic Lying] Blood Pressure [Orthostatic Sitting] Pulse Oximetry 98 Oxygen Delivery Method 02/02/25 10:56 02/02/25 10:57 02/02/25 10:58 Temperature Pulse Rate 91 H 91 H 90 Pulse Rate [Orthostatic Lying] Pulse Rate [Orthostatic Sitting] Pulse Rate [Orthostatic Standing] Respiratory Rate 17 18 17 Blood Pressure Blood Pressure [Orthostatic Lying] Blood Pressure [Orthostatic Sitting] Pulse Oximetry 98 93 92 Oxygen Delivery Method 02/02/25 10:59 02/02/25 11:00 02/02/25 11:00 Temperature Pulse Rate 89 88 Pulse Rate [Orthostatic Lying] Pulse Rate [Orthostatic Sitting] Pulse Rate [Orthostatic Standing] Respiratory Rate 18 18 Blood Pressure 122/57 L Blood Pressure [Orthostatic Lying] Blood Pressure [Orthostatic Sitting] Pulse Oximetry 92 94 Oxygen Delivery Method 02/02/25 11:01 02/02/25 11:02 02/02/25 11:03 Temperature Pulse Rate 87 87 86 Pulse Rate [Orthostatic Lying] Pulse Rate [Orthostatic Sitting] Pulse Rate [Orthostatic Standing] Respiratory Rate 18 18 18 Blood Pressure Blood Pressure [Orthostatic Lying] Blood Pressure [Orthostatic Sitting] Pulse Oximetry 94 94 94 Oxygen Delivery Method 02/02/25 11:04 02/02/25 11:05 02/02/25 11:05 Temperature Pulse Rate 87 86 Pulse Rate [Orthostatic Lying] Pulse Rate [Orthostatic Sitting] Pulse Rate [Orthostatic Standing] Respiratory Rate 20 18 Blood Pressure 119/59 L Blood Pressure [Orthostatic Lying] Blood Pressure [Orthostatic Sitting] Pulse Oximetry 94 95 Oxygen Delivery Method 02/02/25 11:06 02/02/25 11:07 02/02/25 11:08 Temperature Pulse Rate 84 85 85 Pulse Rate [Orthostatic Lying] Pulse Rate [Orthostatic Sitting] Pulse Rate [Orthostatic Standing] Respiratory Rate 17 17 17 Blood Pressure Blood Pressure [Orthostatic Lying] Blood Pressure [Orthostatic Sitting] Pulse Oximetry 94 94 94 Oxygen Delivery Method 02/02/25 11:09 02/02/25 11:10 02/02/25 11:10 Temperature Pulse Rate 86 86 Pulse Rate [Orthostatic Lying] Pulse Rate [Orthostatic Sitting] Pulse Rate [Orthostatic Standing] Respiratory Rate 21 17 Blood Pressure 116/59 L Blood Pressure [Orthostatic Lying] Blood Pressure [Orthostatic Sitting] Pulse Oximetry 95 98 Oxygen Delivery Method 02/02/25 11:11 02/02/25 11:12 02/02/25 11:13 Temperature Pulse Rate 85 85 85 Pulse Rate [Orthostatic Lying] Pulse Rate [Orthostatic Sitting] Pulse Rate [Orthostatic Standing] Respiratory Rate 18 17 17 Blood Pressure Blood Pressure [Orthostatic Lying] Blood Pressure [Orthostatic Sitting] Pulse Oximetry 95 94 94 Oxygen Delivery Method 02/02/25 11:14 02/02/25 11:15 02/02/25 11:15 Temperature Pulse Rate 86 85 Pulse Rate [Orthostatic Lying] Pulse Rate [Orthostatic Sitting] Pulse Rate [Orthostatic Standing] Respiratory Rate 18 18 Blood Pressure 118/57 L Blood Pressure [Orthostatic Lying] Blood Pressure [Orthostatic Sitting] Pulse Oximetry 95 95 Oxygen Delivery Method 02/02/25 11:16 02/02/25 11:17 02/02/25 11:18 Temperature Pulse Rate 86 83 84 Pulse Rate [Orthostatic Lying] Pulse Rate [Orthostatic Sitting] Pulse Rate [Orthostatic Standing] Respiratory Rate 17 17 17 Blood Pressure Blood Pressure [Orthostatic Lying] Blood Pressure [Orthostatic Sitting] Pulse Oximetry 96 96 96 Oxygen Delivery Method 02/02/25 11:19 02/02/25 11:20 02/02/25 11:20 Temperature Pulse Rate 85 84 Pulse Rate [Orthostatic Lying] Pulse Rate [Orthostatic Sitting] Pulse Rate [Orthostatic Standing] Respiratory Rate 18 18 Blood Pressure 125/58 L Blood Pressure [Orthostatic Lying] Blood Pressure [Orthostatic Sitting] Pulse Oximetry 96 96 Oxygen Delivery Method 02/02/25 11:21 02/02/25 11:22 02/02/25 11:23 Temperature Pulse Rate 84 85 84 Pulse Rate [Orthostatic Lying] Pulse Rate [Orthostatic Sitting] Pulse Rate [Orthostatic Standing] Respiratory Rate 17 18 19 Blood Pressure Blood Pressure [Orthostatic Lying] Blood Pressure [Orthostatic Sitting] Pulse Oximetry 96 96 95 Oxygen Delivery Method 02/02/25 11:24 02/02/25 11:25 02/02/25 11:25 Temperature Pulse Rate 84 85 Pulse Rate [Orthostatic Lying] Pulse Rate [Orthostatic Sitting] Pulse Rate [Orthostatic Standing] Respiratory Rate 17 18 Blood Pressure 125/59 L Blood Pressure [Orthostatic Lying] Blood Pressure [Orthostatic Sitting] Pulse Oximetry 95 95 Oxygen Delivery Method 02/02/25 11:26 02/02/25 11:27 02/02/25 11:28 Temperature Pulse Rate 85 85 85 Pulse Rate [Orthostatic Lying] Pulse Rate [Orthostatic Sitting] Pulse Rate [Orthostatic Standing] Respiratory Rate 17 17 17 Blood Pressure Blood Pressure [Orthostatic Lying] Blood Pressure [Orthostatic Sitting] Pulse Oximetry 95 95 95 Oxygen Delivery Method 02/02/25 11:29 02/02/25 11:30 02/02/25 11:30 Temperature Pulse Rate 85 85 Pulse Rate [Orthostatic Lying] Pulse Rate [Orthostatic Sitting] Pulse Rate [Orthostatic Standing] Respiratory Rate 18 19 Blood Pressure 122/58 L Blood Pressure [Orthostatic Lying] Blood Pressure [Orthostatic Sitting] Pulse Oximetry 95 96 Oxygen Delivery Method 02/02/25 11:31 02/02/25 11:32 02/02/25 11:33 Temperature Pulse Rate 84 85 84 Pulse Rate [Orthostatic Lying] Pulse Rate [Orthostatic Sitting] Pulse Rate [Orthostatic Standing] Respiratory Rate 17 17 17 Blood Pressure Blood Pressure [Orthostatic Lying] Blood Pressure [Orthostatic Sitting] Pulse Oximetry 95 95 95 Oxygen Delivery Method Oxygen Delivery Method Room Air Objective Labs 02/02/25 08:50 02/02/25 08:50 Labs: Laboratory Results - last 24 hr 02/02/25 08:50 WBC 7.8 RBC 4.60 Hgb 13.6 Hct 39.4 L MCV 85.7 MCH 29.6 MCHC 34.5 RDW 14.2 Plt Count 226 Neut % (Auto) 65.2 Lymph % (Auto) 24.5 L [place] % (Auto) 7.5 Eos % (Auto) 1.8 L Baso % (Auto) 1.0 Neut # (Auto) 5100 Lymph # (Auto) 1900 [place]ton # (Auto) 600 Eos # (Auto) 100 Baso # (Auto) 100 PT 12.5 INR 1.1 APTT 29 Sodium 138 Potassium 4.4 Chloride 104 Carbon Dioxide 23 BUN 32 H Creatinine 1.30 H Estimated GFR 57 L BUN/Creatinine Ratio 24.6 H Glucose 156 H Calcium 9.7 Magnesium 2.1 Total Bilirubin 0.8 AST 28 ALT 20 Alkaline Phosphatase 51 Total Creatine Kinase 115 Troponin I < 0.012 NT-Pro-B Natriuret Pep < 20 Total Protein 7.4 Albumin 4.7 Globulin 2.7 Albumin/Globulin Ratio 1.7 Lipase 50 Assessment & Plan Time-Based Coding :: [TOTAL MINUTES] spent with patient and on the chart (including review of chart, obtaining history, exam, reviewing outside data, placing orders, documenting exam and treatment plan, and counseling patient) on [DATE].
[2025-02-02] MEDS: PANTOPRAZOLE DR 20 MG TABLET PO (15:40)
[2025-02-02] MEDS: SODIUM CHLORIDE 0.45% 1,000 ML 100 ML IV (15:40)
[2025-02-02] MEDS: ENOXAPARIN 40 MG/0.4 ML SYRINGE SUBCUT (15:56)
[2025-02-02] MEDS: ONDANSETRON 4 MG/2 ML INJ IV (17:30)
[2025-02-02] MEDS: ACETAMINOPHEN 325 MG TABLET 650 MG PO (17:30)
--- NOTE | 2025-02-02 18:26 | PC.NURSE ---
Patient arrived from ED this afternoon A&OX4. VSS, on RA, afebrile. He does report feeling chilled. NSR on telemetry. Upon med reconciliation he stated his meds were changing weekly. He is able to void using urinal. He is given prn tylenol and zofran per request. Bed alarm on, call light in place, SCD's on, 1/2 NS at 100 ml/hr, Bed rest per orders, frequent rounding.
[2025-02-02 19:55] LABS: Appearance Urine UA CLEAR; Bilirubin Urine UA NEGATIVE (NEGATIVE); Color Urine UA YELLOW; Glucose Urine UA NEGATIVE (Negative); Ketones Urine UA NEGATIVE (NEGATIVE); Leukocyte Esterase Urine UA NEGATIVE (NEGATIVE); Nitrite Urine UA NEGATIVE (Negative); Occult Blood Urine UA NEGATIVE (Negative); Protein Urine UA NEGATIVE (Negative); Urobilinogen Urine UA 0.2 E.U./dL (0.2)
[2025-02-02 20:04] LABS: Bacteria Urine None Seen; Culture Indicated Urine Cult Not Indicated; RBC Urine 0-1/HPF (0-5/HPF); Squamous Epithelial Cell Urine 1-5 /HPF (0-5/HPF); Urine Volume 10mL (spun); WBC Urine None Seen (0-5/HPF)
[2025-02-02] MEDS: TAMSULOSIN 0.4 MG CAPSULE 0.8 MG PO (20:28)
[2025-02-02] MEDS: FINASTERIDE 5 MG TABLET PO (20:28)
[2025-02-03] VITALS: BP 133/54; PULSE 89; RESP 17; TEMP 37; O2SAT 95
[2025-02-03] MEDS: ACETAMINOPHEN 325 MG TABLET 650 MG PO (00:03)
[2025-02-03] MEDS: SODIUM CHLORIDE 0.45% 1,000 ML 100 ML IV (01:11)
[2025-02-03 04:00] VITALS: BP 155/62; PULSE 79; RESP 16; TEMP 36.7; O2SAT 98
[2025-02-03] MEDS: PANTOPRAZOLE DR 20 MG TABLET PO (06:14)
--- NOTE | 2025-02-03 07:58 | PM.PN.1 ---
Subjective Subjective Date Patient Seen: 02/03/25 Interval history: Chief complaint: Syncope with collapse with orthostatic hypotension History of present illness: 74-year-old male history of hypertension followed by Dr. Campos treated with chlorthalidone 25 mg clonidine 0.3 mg minoxidil 2.5 mg and losartan 25. He felt lightheaded and dizzy and had progressively dropping blood pressures until they called EMS who found him collapsed and unresponsive. Is brought to the emergency department rehydrated with some IV fluids. He attempted to stand for measurement of orthostatic blood pressure and a collapsed unresponsive in the emergency department. Patient was given a bolus of IV fluid again blood pressure stabilized and he regained consciousness. Findings the emergency room significant for a change in his BUN creatinine from 16 and 0.6-8 in August 26-. otherwise his hemogram and complete metabolic were unremarkable EKG was also sinus rhythm and unremarkable no acute ST segment or T-wave changes patient had imaging performed with normal chest x-ray and CT of the abdomen and pelvis which did not show significant pathology with the exception of possible ileus. Hospital course: 02/03: Review of systems: No chest pains or palpitations No fever chills or cough No urinary symptoms No focal weakness Physical exam: Patient is alert conversant very subdued appearing HEENT unremarkable Neck no carotid bruits or JVD Heart rate and rhythm regular no murmurs Lungs clear to auscultation Abdomen nondistended slightly uncomfortable with deep palpation Extremities no edema Neurologic nonfocal Assessment and plan: Orthostatic syncope with relative rise in BUN creatinine that may indicate dehydration Placed in observation Hydrate intravenous fluid Hold antihypertensives Monitor for signs of developing illness Trial of Limited orthostatic with a lying to sitting only History of small-bowel obstruction status post laparoscopic surgery 4 months ago Observe to see if there is further development of another episode DVT prophylaxis: Enoxaparin Code status: Full code but only 1 hindu of systemic circulation ROSC Exam Vital Signs (past 8 hours): - 02/03/25 00:00 02/03/25 04:00 Temperature 98.6 F 98.1 F Pulse Rate 89 79 Respiratory Rate 17 16 Blood Pressure 133/54 L 155/62 H Pulse Oximetry 95 98 Oxygen Delivery Method Room Air Oxygen Flow Rate 0 Objective Labs 02/02/25 08:50 02/02/25 08:50 Labs: Laboratory Results - last 24 hr 02/02/25 02/02/25 08:50 18:50 WBC 7.8 RBC 4.60 Hgb 13.6 Hct 39.4 L MCV 85.7 MCH 29.6 MCHC 34.5 RDW 14.2 Plt Count 226 Neut % (Auto) 65.2 Lymph % (Auto) 24.5 L [place] % (Auto) 7.5 Eos % (Auto) 1.8 L Baso % (Auto) 1.0 Neut # (Auto) 5100 Lymph # (Auto) 1900 [place] # (Auto) 600 Eos # (Auto) 100 Baso # (Auto) 100 PT 12.5 INR 1.1 APTT 29 Sodium 138 Potassium 4.4 Chloride 104 Carbon Dioxide 23 BUN 32 H Creatinine 1.30 H Estimated GFR 57 L BUN/Creatinine Ratio 24.6 H Glucose 156 H Calcium 9.7 Magnesium 2.1 Total Bilirubin 0.8 AST 28 ALT 20 Alkaline Phosphatase 51 Total Creatine Kinase 115 Troponin I < 0.012 NT-Pro-B Natriuret Pep < 20 Total Protein 7.4 Albumin 4.7 Globulin 2.7 Albumin/Globulin Ratio 1.7 Lipase 50 Urine Color Yellow Urine Appearance Clear Urine pH 5.0 Ur Specific [place] 1.020 Urine Protein Negative Urine Glucose (UA) Negative Urine Ketones Negative Urine Occult Blood Negative Urine Nitrate Negative Urine Bilirubin Negative Urine Urobilinogen 0.2 Ur Leukocyte Esterase Negative Urine RBC 0-1/hpf Urine WBC None seen Ur Squamous Epith Cells 1-5 /hpf Urine Bacteria None seen Ur Culture Indicated? Cult not indicated Vol Urine Centrifuged 10ml (spun) [facility] Medical History (Updated 02/02/25 @ 12:53 by Suly Guadalupe DO) Hypertension BPH (benign prostatic hyperplasia) Surgical History History of carpal tunnel surgery History of hip surgery Social History household members: spouse Smoking Status: Never smoker alcohol intake: current Assessment & Plan Time-Based Coding :: [TOTAL MINUTES] spent with patient and on the chart (including review of chart, obtaining history, exam, reviewing outside data, placing orders, documenting exam and treatment plan, and counseling patient) on [DATE]. Quality VTE Deep Vein Thrombosis/Pulmonary Embolism Present on Admission: No
[2025-02-03 08:00] VITALS: BP 135/69; PULSE 75; RESP 17; TEMP 36.6; O2SAT 98
[2025-02-03] MEDS: TAMSULOSIN 0.4 MG CAPSULE 0.8 MG PO (09:38)
[2025-02-03] MEDS: ENOXAPARIN 40 MG/0.4 ML SYRINGE SUBCUT (09:39)
[2025-02-03 09:45] VITALS: BP 144/64; BP 149/67; BP 158/67; PULSE 82; PULSE 84; PULSE 86
--- NOTE | 2025-02-03 11:36 | PM.DS.1 ---
History of Present Illness History of Present Illness Date Patient Seen: 02/03/25 Chief complaint: orth static hypotension Narrative: Chief complaint: Syncope with collapse with orthostatic hypotension History of present illness: 74-year-old male history of hypertension followed by Dr. Augustin treated with chlorthalidone 25 mg clonidine 0.3 mg minoxidil 2.5 mg and losartan 25. He felt lightheaded and dizzy and had progressively dropping blood pressures until they called EMS who found him collapsed and unresponsive. Is brought to the emergency department rehydrated with some IV fluids. He attempted to stand for measurement of orthostatic blood pressure and a collapsed unresponsive in the emergency department. Patient was given a bolus of IV fluid again blood pressure stabilized and he regained consciousness. Findings the emergency room significant for a change in his BUN creatinine from 16 and 0.6-8 in August 26-.3 otherwise his hemogram and complete metabolic were unremarkable EKG was also sinus rhythm and unremarkable no acute ST segment or T-wave changes patient had imaging performed with normal chest x-ray and CT of the abdomen and pelvis which did not show significant pathology with the exception of possible ileus. Hospital course: 02/03: Patient had large bowel movement overnight low-grade temperature but feels fine this morning tolerating diet blood pressure 140s over 70s lying sitting and standing with no symptomatic changes. Patient will be discharged home and instructed not to resume any antihypertensives but to monitor his blood pressures every 8 hours and record off of all medication and to bring the record to his airport guide Review of systems: No chest pains or palpitations No fever chills or cough No urinary symptoms No focal weakness Physical exam: Patient is alert conversant HEENT unremarkable Neck no carotid bruits or JVD Heart rate and rhythm regular no murmurs Lungs clear to auscultation Abdomen benign Extremities no edema Neurologic nonfocal Assessment and plan: Resolved Orthostatic syncope with relative rise in BUN creatinine that may indicate dehydration Discharge home record blood pressures off all medications. Patient may be intolerant to combination of angiotensin receptor blockers and diuretics we will defer to Cardiology for management of hypertension Code status: Full code but only 1 lutheran of systemic circulation ROSC Discharge Providers Provider Date of admission: 02/02/25 12:54 Discharge Date: 02/03/25 Primary care physician: Adriel Mcclendon, DO Discharge provider: Miguel Del Toro MD Exam Vital Signs (past 8 hours): - 02/03/25 04:00 02/03/25 08:00 02/03/25 09:45 Temperature 98.1 F 97.9 F Pulse Rate 79 75 Pulse Rate [Orthostatic Lying] 82 Pulse Rate [Orthostatic Sitting] 84 Pulse Rate [Orthostatic Standing] 86 Respiratory Rate 16 17 Blood Pressure 155/62 H 135/69 Blood Pressure [Orthostatic Lying] 144/64 H Blood Pressure [Orthostatic Sitting] 158/67 H Blood Pressure [Orthostatic Standing] 149/67 H Pulse Oximetry 98 98 Oxygen Delivery Method Room Air Oxygen Flow Rate 0 Objective Labs 02/02/25 08:50 02/02/25 08:50 Labs: Laboratory Results - last 24 hr 02/02/25 18:50 Urine Color Yellow Urine Appearance Clear Urine pH 5.0 Ur Specific [place] 1.020 Urine Protein Negative Urine Glucose (UA) Negative Urine Ketones Negative Urine Occult Blood Negative Urine Nitrate Negative Urine Bilirubin Negative Urine Urobilinogen 0.2 Ur Leukocyte Esterase Negative Urine RBC 0-1/hpf Urine WBC None seen Ur Squamous Epith Cells 1-5 /hpf Urine Bacteria None seen Ur Culture Indicated? Cult not indicated Vol Urine Centrifuged 10ml (spun) [facility] Medical History (Updated 02/02/25 @ 12:53 by Suly Guadalupe DO) Hypertension BPH (benign prostatic hyperplasia) Surgical History History of carpal tunnel surgery History of hip surgery Social History household members: spouse Smoking Status: Never smoker alcohol intake: current Discharge Plan Discharge Plan Patient Disposition: Home Discharge orders & Medications Prescriptions: Continued tamsulosin 0.4 mg capsule 0.8 mg PO DAILY finasteride 5 mg tablet 5 mg PO DAILY cetirizine 10 mg PO DAILY Discontinued minoxidil 2.5 mg tablet 5 mg PO DAILY olmesartan 40 mg Tablet 40 mg PO DAILY rosuvastatin 5 mg tablet 5 mg PO DAILY Follow up/Referrals: Adriel Mcclendon DO [Primary Care Provider] - Visit Report/Discharge Packet Stand Alone Forms: Patient Portal/API, Stroke Signs & Symptoms, Patient Portal/API/Survey Discharge Data Primary Care Provider: Adriel Mcclendon Attending Provider: Miguel Del Toro Admthea Date/Time: 02/02/25 12:54 Quality VTE Deep Vein Thrombosis/Pulmonary Embolism Present on Admission: No
[2025-02-03 12:00] VITALS: BP 150/88; PULSE 77; RESP 17; TEMP 36.4; O2SAT 98
[2025-02-03 12:35] VITALS: BP 140/70; BP 145/71; BP 148/72; PULSE 76; PULSE 77; PULSE 78
== END 2025-02-03 13:50 | disposition home or self-care (01) ==
LOC: ED 12:53 → AC 12:57
PROVIDERS: Admitting Provider Internal Medicine; Emergency Provider Emergency Medicine; PCP Internal Medicine; Referring Provider Emergency Medicine; Visit Provider Internal Medicine
DX: I95.1 Orthostatic hypotension (principal); R42 Dizziness and giddiness; I10 Essential (primary) hypertension; E86.0 Dehydration
CPT/HCPCS: 71045; 71275; 74174; 80053; 81001; 82550; 83690; 83735; 83880; 84484; 85025; 85610; 85730; 87040; 92950; 93005; 96361; 96372; 96374; 96375; 99284; G0378; J1650; J2405; J2765; J7050; Q9967